=== PATIENT | male | born 1950 | race Caucasian/White ===

== ENCOUNTER 2018-01-07 12:24 | Observation (INO) | payer MEDICARE ==
[2018-01-07 13:23] LABS: ALT (SGPT) 23 U/L (8-55); AST (SGOT) 28 U/L (5-34); Albumin 3.5 g/dL (3.4-4.8); Alkaline Phosphatase 148 U/L (40-150); Anion Gap 14 mmol/L (10-20); BUN (Urea Nitrogen) 16 mg/dL (8.4-25.7); Bilirubin, Total 1.8 mg/dL (0.2-1.2); CK (CPK) 81 U/L (30-200); Calc. Creatinine Clearance 0 mL/min (70-130); Calcium 9.6 mg/dL (7.8-10.44); Carbon Dioxide 29 mmol/L (23-31); Chloride 97 mmol/L (98-107); Estimated GFR-MDRD 58; Globulin 3.8 g/dL (2.4-3.5); Glucose 146 mg/dL (80-115); Potassium 4.6 mmol/L (3.5-5.1); Protein, Total 7.3 g/dL (5.8-8.1); Sodium 135 mmol/L (136-145)
[2018-01-07 13:28] LABS: CKMB 2.7 ng/mL (0-6.6); Hemoglobin 15.3 g/dL (14.0-18.0); Mean Corpuscular HGB CONC 31.5 g/dL (32.0-36.0); Mean Corpuscular Hemoglobin 32.3 pg (27.0-31.0); Platelet Count 247 thou/uL (130-400); RBC Distribution Width 14.6 % (11.5-14.5); Red Blood Cell (RBC) Count 4.73 mill/uL (4.70-6.10); Troponin I 0.077 ng/mL (< 0.028); White Blood Cell (WBC) Count 12.5 thou/uL (4.8-10.8)
[2018-01-07 13:35] LABS: Band 9 % (5-11); Eosinophils 3 % (0-10); Lymphocytes 6 % (21-51); MDiff Complete? YES; Macrocytosis SLIGHT = 6-15 cells (100X) (0-5/hpf); Monocytes 7 % (0-10); Neutrophil 64 % (42-75); PLT Morphology Comment Appears Adequate; Polychromasia SLIGHT = 2-3 cells (100X) (0-2/hpf); Reactive Lymphocytes 10 % (0-10); Target Cells SLIGHT = 2-5 cells (100X) (0-1/hpf)
[2018-01-07] MEDS ORDERED: Ondansetron HCl/PF 4 MG/2 ML Vial ONE (13:36)
--- NOTE | 2018-01-07 15:25 | RAD ---
PORTABLE AP CHEST: Date: 01/07/18 HISTORY: Right upper quadrant pain. COMPARISON: 08/23/16. FINDINGS: Dual lead left subclavian AICD device remains in place. The cardiac silhouette is enlarged. Increased interstitial densities are seen at the right lung base. There is persistent pleural density at the r ight lung base as well, which may be related to either persistent right pleural effusion or pleural a nd parenchymal scarring. There is suboptimal evaluation of the left lung base. Vascular calcification seen in thoracic aorta. No other interval change. IMPRESSION: 1. Cardiomegaly without overt CHF. 2. Mild prominence of the interstitial densities right lung base probably related to chronic lung ch anges and superimposition of structures. 3. Persistent pleural based density right lung base, which may be related to either persistent right pleural effusion or pleural and parenchymal scarring. 4. Suboptimal evaluation of left lung base. POS: SVETLANA
--- NOTE | 2018-01-07 16:01 | CT ---
NONCONTRAST CT ABDOMEN AND PELVIS: 01/07/18 HISTORY: Shortness of breath, nausea and abdominal pain. COMPARISON: 08/25/09. There has been interval placement of dual lead left subclavian AICD device since the prior exam. The heart is enlarged. There is a tiny pericardial effusion identified. There are linear densities presen t at each lung base, probably related to bibasilar atelectasis. 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 No significant aneurysm sac is present. Postcholecystectomy changes as well as postsurgical change related to splenectomy are noted. There is a minimal contour abnormality involving the mid portion right kidney which may represent a t iny subcentimeter too small to characterize hypodense lesion. Postsurgical changes related to the lef t nephrectomy are noted. No right renal or ureteral calculus is present. Urinary bladder demonstrates grossly normal nonenhanced CT appearance. The liver, pancreas, and right adrenal gland demonstrate a normal CT appearance. Left adrenal gland i s not readily visualized which may be related to adrenalectomy. There is colonic diverticulosis involving the descending colon. Appendix is visualized and normal in caliber. Degenerative changes are seen in the lumbar spine. Postsurgical changes each inguinal region is present. There is atrophy of the left rectus abdominis muscle. There is mild inflammatory stranding seen in th e subcutaneous soft tissues in a supraumbilical location with minimal skin thickening. Mild celluliti s could not be excluded. IMPRESSION: 1. Cardiomegaly with tiny pericardial effusion. 2. Postsurgical changes related to cholecystectomy, splenectomy, and left adrenalectomy and neph rectomy. 3. Postsurgical change related to endograft repair of abdominal aortic aneurysm. No significant residual aneurysm sac is present. 4. No right renal or ureteral calculus is visualized, and there is no hydronephrosis. There is a tiny difficult to characterize exophytic lesion at the mid portion of the right kidney. 5. Prominent degenerative changes in the spine. 6. Mild stranding and minimal skin thickening anterior abdomen in a supraumbilical location. Janeth lulitis cannot be excluded based on CT evaluation. Clinical correlation is recommended. POS: SVETLANA
[2018-01-07] MEDS ORDERED: Bisacodyl 5 MG TAB PO PRN (16:09)
[2018-01-07] MEDS ORDERED: Acetaminophen 650 MG Suppository PR PRN (16:09)
[2018-01-07] MEDS ORDERED: Acetaminophen 325 MG TAB PO PRN (16:09)
[2018-01-07 17:41] LABS: Troponin I 0.081 ng/mL (< 0.028)
--- NOTE | 2018-01-07 17:58 | HP ---
PRIMARY CARE PHYSICIAN: Castillo David MD ARTILLERY MAINTENANCE SUPERVISOR: Kip Aguilar MD MARKETING STRATEGY ANALYST: Jose J Ulrich MD CHIEF COMPLAINT: Shortness of breath. HISTORY OF PRESENT ILLNESS: Mr. Arambula is a pleasant 67-year-old gentleman, who was seen at [facility] on 01/07/2018. He reports that he developed shortness of breath 3 days ago. It has been progressively getting worse . He uses 2 liters of oxygen at home. He reports that he is feeling short of breath on 2 liters of oxygen. He also reports cough that is productive of brownish sputum. He denies any fevers or chills . He denies any chest pain. He reports nausea over the last 4 to 5 days. He also reports having di scomfort across his upper abdomen over the last 2 weeks. He describes it as a dull pain, nonradiatin g, 7/10, improving with bowel movements, accompanied by nausea. He reports that he has been eating s oft diet for the last one month. REVIEW OF SYSTEMS: The following complete review of systems was negative, unless otherwise mentioned in the HPI or below: Constitutional: Weight loss or gain, ability to conduct usual activities. Skin: Rash, itching. Eyes: Double vision, pain. ENT/Mouth: Nose bleeding, neck stiffness, pain, tenderness. Cardiovascular: Palpitations, dyspnea on exertion, orthopnea. Respiratory: Shortness of breath, wheezing, cough, hemoptysis, fever or night sweats. Gastrointestinal: Poor appetite, abdominal pain, heartburn, nausea, vomiting, constipation, or diarr hea. Genitourinary: Urgency, frequency, dysuria, nocturia. Musculoskeletal: Pain, swelling. Neurologic/Psychiatric: Anxiety, depression. Allergy/Immunologic: Skin rash, bleeding tendency. PAST MEDICAL HISTORY: Significant for COPD, CHF, atrial fibrillation and dyslipidemia. PAST SURGICAL HISTORY: Significant for spinal fusion, crush injury to right index finger, wisdom too th extraction, right wrist cyst removal, chest tube, cervical fusion at C4-C6, right-sided nephrectom y, bilateral knee replacements, and AICD placement. FAMILY HISTORY: No family history of premature coronary artery disease. SOCIAL HISTORY: The patient denies tobacco use, alcohol use and recreational drug use. ALLERGIES: DEMEROL, IODINE and MEPERIDINE. The patient's reports that patient is not supposed to have IODINE because he has solitary kidney. CURRENT MEDICATIONS: Losartan 50 mg daily, pravastatin 40 mg daily, digoxin 125 mcg daily, Toprol-XL 25 mg 2 times a day, and torsemide 20 mg daily. PHYSICAL EXAMINATION: GENERAL: Mr. Arambula is awake and alert, not in acute distress. VITAL SIGNS: Blood pressure is 102/66, pulse is 94. He is breathing at rate of 18 and saturating 96 % on 3 liters of oxygen. He is afebrile. When he presented to the emergency room, he had a pulse of 118 and respiratory rate of 32. EYES: No scleral icterus. No conjunctival pallor. ENT: Moist mucosal membranes, no oropharyngeal erythema or exudates. NECK: Supple, nontender, normal range of movement. Trachea is midline. RESPIRATORY: Accessory muscles of breathing are not active. Chest wall movements are symmetric bila terally. LUNGS: Clear to auscultation, without wheeze, rhonchi or crepitations. CARDIOVASCULAR: S1 and S2 are heard, tachycardic and irregular. LUNGS: Peripheral pulses palpable. No carotid bruit, no pericardial rub. ABDOMEN: Soft, mild epigastric tenderness, no guarding or rigidity, bowel sounds are heard, no hepat omegaly, no splenomegaly. NEUROLOGIC: Cranial nerves II through XII are intact, deep tendon reflexes are 2+. MUSCULOSKELETAL: Power is 5/5 in all 4 extremities. He has bilateral lower extremity edema. LYMPHATIC: No cervical lymphadenopathy. PSYCHIATRIC: Normal mood, normal affect, the patient is oriented to person, place, and time. LABORATORY DATA: Mr. Arambula's labs and investigations were reviewed. I reviewed his electrocardiogr am, which shows atrial fibrillation with rapid ventricular response. I also reviewed his chest x-ray , which shows cardiomegaly, no pulmonary infiltrates. He appears to have a right pleural effusion. He also had CT scan of the abdomen and pelvis, which showed cardiomegaly with tiny pericardial effusi on, postsurgical changes related to cholecystectomy, splenectomy, left adrenalectomy and nephrectomy, post-surgical changes related to endograft repair of abdominal aortic aneurysm, no right renal or ur eteral calculus, no hydronephrosis, tiny difficult to characterize exophytic lesion at the mid portio n of the right kidney, prominent degenerative changes in the spine, mild stranding and minimal skin t hickening of the anterior abdomen in the supraumbilical location, radiologist reports that cellulitis cannot be excluded based on CT evaluation. Laboratory investigations showed leukocytosis with 12,50 0 white cells, of which 64% are neutrophils, normal hemoglobin, normal platelet count, decreased sodi um of 135, normal potassium, normal creatinine, normal lactic acid, elevated total bilirubin of 1.8, normal AST, normal ALT, normal alkaline phosphatase and indeterminate troponin I of 0.077. ASSESSMENT AND PLAN: Mr. Arambula is a pleasant 67-year-old gentleman, who was seen at [facility] on 01/07/2018. His problem list includes: 1. Acute on chronic respiratory failure: Most likely secondary to bronchitis. We will admit Mr. Russell purcell to the hospital for further management. 2. Bronchitis: Start the patient on antibiotics, bronchodilators and steroids. 3. Elevated troponin: The patient's troponin is in the indeterminate range. We will recheck tropon in level. We will consult Cardiology Service for their opinion and help with management. The patien t himself does not complain of any chest pain. 4. Hyponatremia: Mild, recheck. 5. Abdominal pain: The etiology is unclear at this time. CT scan does not provide a clear reason. 6. Renal exophytic lesion. The patient may need workup as outpatient. 7. Atrial fibrillation. Continue current medications. 8. History of congestive heart failure: Given the patient's presentation with shortness of breath, check BNP level. Continue home medications including torsemide. 9. Check D-dimer to rule out pulmonary embolism. The patient may need a VQ scan if D-dimer is eleva armin. Many thanks for allowing me to participate in your patient's care. Please feel free to contact me wi th any questions or concerns. LEVEL OF RISK: High. LEVEL OF COMPLEXITY: High.
[2018-01-07 18:34] VITALS: BMI 35.9
--- NOTE | 2018-01-07 19:39 | CON ---
DATE OF CONSULTATION: 01/07/2018 REASON FOR CONSULTATION: Heart failure. HISTORY OF PRESENT ILLNESS: Mr. Arambula is a very pleasant 67-year-old white gentleman who comes to [facility] for shortness of breath. He was seen in the office just last week about 3 or 4 days ago to establish care. He has a history of combined ischemic and nonischemic cardiomyopathy. His EF was about 15% when he was first diagnosed heart catheterization showed an occluded RCA and an occluded l arge OM. It was recommended that the only way to get blood flow back to these arteries was bypass hector meek, he did not like this, so he actually sought different opinion and has been seen at [facility] since there was no revascularization done. He has been treated medically since then. Last evaluat ion of LV function was about a year ago and he was told it was about 40-45%. He comes in for [facility] shortness of breath, cough with red sputum. No fevers, but just a sensation of feeling sick, a li ttle diarrhea, loose stool, mostly. He was admitted for further evaluation and found to have an elevated BNP and indeterminate troponins. PAST MEDICAL HISTORY: 1. Chronic obstructive pulmonary disease which he has been told this is mild. 2. History of ischemic and nonischemic cardiomyopathy. 3. Chronic atrial fibrillation. He recently had his anticoagulation, stopped secondary to positive occult blood in stool. 4. Hyperlipidemia. 5. Coronary artery disease. PAST SURGICAL HISTORY: 1. Spinal fusion. 2. Crush injury of right index finger. 3. Collins tooth extraction. 4. Right wrist cyst removal. 5. Cervical fusion of C4 and C6. 6. Right-sided nephrectomy. 7. Bilateral knee replacement. 8. AICD placement due to cardiomyopathy. OUTPATIENT MEDICATIONS: Include, 1. Losartan 50 mg a day. 2. Pravastatin 40 mg a day. 3. Digoxin 125 mcg a day. 4. Toprol-XL 25 mg twice a day. 5. Torsemide 20 mg a day. ALLERGIES: IODINE, MEPERIDINE, although IODINE allergies more of just avoidance due to having just o ne kidney. SOCIAL HISTORY: No alcohol, tobacco or drugs. FAMILY HISTORY: Noncontributory. REVIEW OF SYSTEMS: Twelve point review of systems was done and is all negative unless stated in the history of present illness. PHYSICAL EXAMINATION: VITAL SIGNS: Temperature 98.0, pulse 96, respiration rate 20, satting 96% on room, blood pressure 13 8/83. GENERAL: Awake, alert, oriented x3, in no distress. HEENT: Normocephalic, atraumatic. NECK: Supple. LUNGS: Have mild crackles at the bilateral bases which are occurred mostly dry. CARDIOVASCULAR: S1, S2, no S3, S4, no murmurs or rubs. ABDOMEN: Soft, positive bowel sounds. EXTREMITIES: 1+ edema. SKIN: Warm and dry. LABORATORY WORK: Reviewed. White count of 12, hemoglobin of 15, hematocrit 48, platelet count 247. Coags: Elevated D-dimer 2.7. Chemistries: Sodium 135, potassium 4.6, chloride 97, carbon dioxide 29, anion gap of 14, BUN of 16, creatinine 1.23, GFR 58, glucose of 146. Lactic acid 1.7, calcium 9. 6, total bilirubin 1.8, AST and ALT, alkaline phosphatase are normal. BNP was 1650, troponin I was 0 .07 and 0.08, albumin of 3.5. CT of the abdomen and pelvis was reviewed. ASSESSMENT AND PLAN: 1. Acute on chronic systolic heart failure. We will get an echocardiogram to assess LV function. O ne dose of IV Lasix. We will reevaluate in the morning. 2. Possible bronchitis. Antibiotics per primary team. 3. Coronary artery disease stable at this time. I do not think this is an acute coronary syndrome. Troponin elevation is only mild and not a typical rise and fall that we would expect for an acute co ronary syndrome. 4. Chronic atrial fibrillation. Heart rate, currently rate controlled. We would continue home [facility]. Thank you for letting us participate in the care of patient. We will follow.
[2018-01-07] MEDS ORDERED: Furosemide 40 MG/4 ML VIAL SLOW IVP SCH (20:30)
[2018-01-07] MEDS: Metoprolol Tartrate 25 MG TAB PO SCH (20:32)
[2018-01-07] MEDS: Cefuroxime Axetil 250 MG TAB PO SCH (20:32)
[2018-01-07] MEDS: Pravastatin Sodium 40 MG TAB PO SCH (20:32)
[2018-01-07 20:53] LABS: Troponin I 0.064 ng/mL (< 0.028)
[2018-01-07] MEDS ORDERED: HYDROcodone/Acetaminophen 10/325 mg Tablet PO SCH (21:00)
[2018-01-08] MEDS: HYDROcodone/Acetaminophen 10/325 mg Tablet PO PRN ×2 (04:48→13:28)
[2018-01-08 06:10] LABS: #Basophils 0.1 thou/uL (0.0-0.2); #Eosinphils 0.2 thou/uL (0.0-0.7); #Monocytes 1.3 thou/uL (0.11-0.59); #Neutrophils 8.1 thou/uL (1.40-6.50); %Basophils 0.8 % (0.0-1.0); %Eosinophils 1.7 % (0.0-10.0); %Lymphocytes 17.3 % (21.0-51.0); %Neutrophils 69.2 % (42.0-75.0); Hemoglobin 13.8 g/dL (14.0-18.0); Mean Corpuscular HGB CONC 31.8 g/dL (32.0-36.0); Mean Corpuscular Hemoglobin 32.8 pg (27.0-31.0); Mean Platelet Volume 7.6 fL (7.4-10.4); Platelet Count 243 thou/uL (130-400); RBC Distribution Width 14.7 % (11.5-14.5); White Blood Cell (WBC) Count 11.7 thou/uL (4.8-10.8)
[2018-01-08 06:33] LABS: Anion Gap 11 mmol/L (10-20); BUN (Urea Nitrogen) 17 mg/dL (8.4-25.7); Calc. Creatinine Clearance 81 mL/min (70-130); Calcium 8.7 mg/dL (7.8-10.44); Carbon Dioxide 33 mmol/L (23-31); Chloride 98 mmol/L (98-107); Estimated GFR-MDRD 56; Glucose 110 mg/dL (80-115); Magnesium 2.1 mg/dL (1.6-2.6); Potassium 4.1 mmol/L (3.5-5.1); Sodium 138 mmol/L (136-145)
[2018-01-08] MEDS: Metoprolol Tartrate 25 MG TAB PO SCH ×2 (08:11→21:09)
[2018-01-08] MEDS: Cefuroxime Axetil 250 MG TAB PO SCH ×2 (08:11→21:08)
[2018-01-08] MEDS: Digoxin 0.125 MG TAB PO SCH (08:11)
[2018-01-08] MEDS: Cyanocobalamin (Vitamin B-12) 1,000 MCG TAB PO SCH (08:11)
[2018-01-08] MEDS: Ubidecarenone 50 MG CAP PO SCH (08:12)
[2018-01-08] MEDS: Multivitamin W/ Minerals 1 TAB PO SCH (08:12)
[2018-01-08] MEDS: Losartan 25 MG TAB PO SCH (08:12)
[2018-01-08] MEDS: Fish Oil 1,000 MG CAP PO SCH (08:12)
[2018-01-08] MEDS: Folic Acid 1 MG TAB PO SCH (08:12)
[2018-01-08] MEDS: Torsemide 20 MG TAB PO SCH (08:12)
[2018-01-08] MEDS: Enoxaparin Sodium 40 MG/0.4 ML SYRINGE SC SCH (08:13)
[2018-01-08] MEDS: predniSONE 20 MG TAB PO SCH (08:14)
--- NOTE | 2018-01-08 09:56 | NM ---
NUCLEAR MEDICINE VENTILATION PERFUSION SCAN: (V/Q SCAN) Date: 01/08/18 HISTORY: 67-year-old male with elevated D-Dimer and dyspnea. TECHNIQUE: Xenon-133 gas dose: 11.4 [id number] dose: 6.5 The patient inhaled Xenon-133 gas, and dynamic ventilation scintigraphy was performed. [id number] was injected IV, and multiple perfusion scintigraphic views were obtained. FINDINGS: Unfortunately, due to technical issues, the Xenon ventilation scintigraphy data was lost. Fortunately, there are no moderate sized or large pulmonary perfusion defects, except for the defect on the left representing pacemaker generator. IMPRESSION: Low probability for pulmonary thromboembolism. NONI Gordon POS: SVETLANA
--- NOTE | 2018-01-08 13:07 | PDOC.CTH ---
Cardiology Progress Note - Subjective He diuresed well overnight. I reviewed the echo with him as well the films from his cath in 2010. - Objective Vital Signs Temp Pulse Resp BP Pulse Ox 01/08/18 11:39 97.9 F 80 24 H 101/73 93 L 01/08/18 07:53 98.0 F 91 20 01/08/18 07:35 97.7 F 91 20 104/58 L 92 L 01/08/18 04:02 98.0 F 91 20 110/75 91 L Weight 229 lb 11.2 oz 01/07/18 01/08/18 01/09/18 06:59 06:59 06:59 Intake Total 484 Output Total 1700 Balance -1216 - Physical Examination General/Neuro: alert & oriented x3, NAD Neck: no JVD present Lungs: unlabored respirations, other: (Mild bibasilar crackles. ) Heart: other: (Irreg) Abdomen: NT/ND Extremities: + edema B (1+) - Telemetry Telemetry Rhythm: Afib HR 60's. - Labs Result Diagrams: 01/08/18 05:56 01/08/18 05:56 Troponin/CKMB CK-MB (CK-2) 2.7 ng/mL (0-6.6) 01/07/18 12:45 Troponin I 0.064 ng/mL (< 0.028) H 01/07/18 20:17 - Assessment/Plan 1. Acute on chronic sytolic heart failure. 2. Severe dilated CM EF at 10-15%. 3. Presence of an AICD. 4. Chronic afib. 5. CAD, stable. occluded RCA and OM branch on [facility] in 2010. PLAN: - Continue IV lasix for today and depending on how he looks tomorrow will switch to PO diuretic. - Home soon.
[2018-01-08] MEDS: Furosemide 40 MG/4 ML VIAL SLOW IVP SCH (13:28)
--- NOTE | 2018-01-08 18:02 | PRG ---
DATE OF SERVICE: 01/08/2018 SUBJECTIVE: The patient is seen and examined at the bedside. He is feeling 100% better as he stated he does not have much complaints to offer, except for he is still being some short of breath and eve e abdominal bloating. OBJECTIVE: VITAL SIGNS: Blood pressure is 101/73, pulse is 100, temperature is 97.9, respiratory rate is 16, an d O2 saturation is 96% on 3 liters by nasal cannula. HEENT: His head is atraumatic, normocephalic. Eyes are PERRLA. Conjunctivae pinkish. Oral mucosa is moist. NECK: Supple, no thyromegaly. LUNGS: Breath sounds significantly diminished over the right lung, few crackles at the both bases. No wheezing. CARDIOVASCULAR: S1, S2, somewhat distant. No S3, no S4. ABDOMEN: Distended, bloated, but not tender. EXTREMITIES: Right lower extremity, 2-3+ peripheral edema. Left lower extremity, mild edema up to 1 . NEUROLOGIC: He is alert and oriented x4. There is no any sensory or motor deficits present. Crania l nerves are intact. LABORATORY DATA: Showed white count of 11.7, hemoglobin of 13.8, hematocrit of 43.4, platelet count is 243. Chemistry showed normal electrolytes, CO2 of 33, BUN 17, creatinine 1.27. The rest of chemi stry within normal limits. Three sets of troponins showed 0.077, 0.081, and 0.064 levels. VQ scan w as done this morning and it is low probability for pulmonary thromboembolism. IMPRESSION: 1. Acute on chronic systolic heart failure. 2. Severe dilated cardiomyopathy with ejection fraction of 10% to 15%. 3. Chronic atrial fibrillation. 4. Coronary artery disease, stable, chronic. 5. Automatic implantable cardioverter defibrillator. 6. Elevated troponins, most likely demand ischemia. 7. Abdominal distention and bloating. Apparently, he is able to eat today. We will try some probio tics and see whether this helps. 8. Atrial fibrillation, chronic, with rapid ventricular rate controlled. 9. Possible bronchitis. PLAN: Continue diuresis. Continue antibiotics. Continue p.o. prednisone and he should be able to g o home since he improved so much so quickly.
[2018-01-08] MEDS: Pravastatin Sodium 40 MG TAB PO SCH (21:09)
[2018-01-09] MEDS: HYDROcodone/Acetaminophen 10/325 mg Tablet PO PRN ×2 (00:47→10:52)
[2018-01-09] MEDS: Furosemide 40 MG/4 ML VIAL SLOW IVP SCH ×2 (04:53→15:13)
[2018-01-09 05:18] LABS: Anion Gap 11 mmol/L (10-20); BUN (Urea Nitrogen) 19 mg/dL (8.4-25.7); Calc. Creatinine Clearance 98 mL/min (70-130); Calcium 8.4 mg/dL (7.8-10.44); Carbon Dioxide 33 mmol/L (23-31); Chloride 97 mmol/L (98-107); Estimated GFR-MDRD 70; Glucose 132 mg/dL (80-115); Potassium 4.2 mmol/L (3.5-5.1); Sodium 137 mmol/L (136-145)
[2018-01-09 08:25] VITALS: TEMP 97.5
[2018-01-09] MEDS: Digoxin 0.125 MG TAB PO SCH (08:29)
[2018-01-09] MEDS: Folic Acid 1 MG TAB PO SCH (08:29)
[2018-01-09] MEDS: predniSONE 20 MG TAB PO SCH (08:29)
[2018-01-09] MEDS: Torsemide 20 MG TAB PO SCH (08:30)
[2018-01-09] MEDS: Multivitamin W/ Minerals 1 TAB PO SCH (08:30)
[2018-01-09] MEDS: Cyanocobalamin (Vitamin B-12) 1,000 MCG TAB PO SCH (08:30)
[2018-01-09] MEDS: Losartan 25 MG TAB PO SCH (08:31)
[2018-01-09] MEDS: Cefuroxime Axetil 250 MG TAB PO SCH (08:31)
[2018-01-09] MEDS: Ubidecarenone 50 MG CAP PO SCH (08:31)
[2018-01-09] MEDS: Enoxaparin Sodium 40 MG/0.4 ML SYRINGE SC SCH (08:31)
[2018-01-09] MEDS: Metoprolol Tartrate 25 MG TAB PO SCH (08:31)
[2018-01-09] MEDS: Fish Oil 1,000 MG CAP PO SCH (08:31)
[2018-01-09] MEDS ORDERED: Ondansetron HCl/PF 4 MG/2 ML Vial IVP PRN (12:29)
[2018-01-09] MEDS ORDERED: Ondansetron ODT 4 MG TAB SL PRN (12:29)
--- NOTE | 2018-01-09 14:58 | PDOC.PN ---
- Subjective Encounter Start Date: 01/09/18 Encounter Start Time: 14:56 Subjective: feels well.denies any more SOB.thinks he is at his baseline - Objective MAR Reviewed: Yes Vital Signs & Weight: Vital Signs (12 hours) Temp Pulse Resp BP Pulse Ox 01/09/18 13:23 84 20 96 01/09/18 11:35 97.5 F L 93 24 H 128/68 91 L 01/09/18 08:29 96 01/09/18 07:41 97.5 F L 96 18 135/82 91 L 01/09/18 07:06 89 20 96 01/09/18 04:00 98.1 F 93 17 128/68 92 L Weight Weight 230 lb 9.6 oz I&O: 01/08/18 01/09/18 01/10/18 06:59 06:59 06:59 Intake Total 484 1565 Output Total 1700 1375 Balance -1216 190 Result Diagrams: 01/08/18 05:56 01/09/18 04:44 Additional Labs: Microbiology 01/07/18 13:57 Venous blood - Left Arm Blood Culture - Preliminary Specimen has been received and culture in progress. No Growth to date. 01/07/18 13:57 Venous blood - Left Arm Blood Culture - Preliminary NO GROWTH AT 48 HOURS 01/07/18 13:17 Venous blood - Right Hand Blood Culture - Preliminary Specimen has been received and culture in progress. No Growth to date. 01/07/18 13:17 Venous blood - Right Hand Blood Culture - Preliminary NO GROWTH AT 48 HOURS Laboratory Tests 01/07/18 01/07/18 01/07/18 12:12 12:45 17:08 Troponin I 0.077 H 0.081 H B-Natriuretic Peptide 1650.2 H 01/07/18 20:17 Troponin I 0.064 H B-Natriuretic Peptide Phys Exam - Physical Examination Constitutional: NAD HEENT: PERRLA, moist MMs, sclera anicteric, oral pharynx no lesions Neck: no nodes, no JVD, supple, full ROM Respiratory: no wheezing, no rales, no rhonchi, clear to auscultation bilateral Cardiovascular: no significant murmur, no rub, gallop, irregular Gastrointestinal: soft, non-tender, no distention, positive bowel sounds Musculoskeletal: no edema, pulses present Neurological: non-focal, normal sensation, moves all 4 limbs Psychiatric: normal affect, A&O x 3 Skin: no rash Dx/Plan (1) Acute on chronic systolic CHF (congestive heart failure) Code(s): I50.23 - ACUTE ON CHRONIC SYSTOLIC (CONGESTIVE) HEART FAILURE Status : Acute (2) Acute and chronic respiratory failure ([id number]) Code(s): J96.20 - ACUTE AND CHR RESP FAILURE, UNSP W HYPOXIA OR HYPERCAPNIA Status: Acute (3) ACUTE COPD W BRONCHITIS Status: Acute (4) Chronic atrial fibrillation Code(s): I48.2 - CHRONIC ATRIAL FIBRILLATION Status: Chronic (5) CAD (coronary artery disease) Code(s): I25.10 - ATHSCL HEART DISEASE OF [place] CORONARY ARTERY W/O ANG PCTRS Status: Chronic (6) AICD (automatic cardioverter/defibrillator) present Code(s): Z95.810 - PRESENCE OF AUTOMATIC (IMPLANTABLE) CARDIAC DEFIBRILLATOR Status: Chronic (7) Ischemic dilated cardiomyopathy Code(s): I25.5 - ISCHEMIC CARDIOMYOPATHY; I42.0 - DILATED CARDIOMYOPATHY Status: Chronic Comment: EF 10-15% - Plan continue antibiotics, PT/OT, social media content specialist, respiratory therapy, incentive spirometry, out of bed/ambulate, DVT proph w/SCDs cont diuresis per cardiology.cont empiric ABx,Po steroids,nebs.On home O2 -: V/Q w low probability for PE. -: cont Cozaar,Metoprolol,statin,lasix -: am labs.home when cleared by cardiology.almost at baseline -: EF reduced from 45-15%.will need aldactone,CoregVs Toprol .start aldactone * .will d/w cardiology further. * may need to stay if meds are changed .pt somewhat reluctant and non trusting Review of Systems - Review of Systems Constitutional: negative: fever, chills, sweats, weakness, malaise, other Respiratory: SOB with Excertion. negative: Cough, Dry, Shortness of Breath, Hemoptysis, Pleuritic Pain, Sputum, Wheezing Cardiovascular: negative: chest pain, palpitations, orthopnea, paroxysmal nocturnal dyspnea, edema, light headedness, other Gastrointestinal: negative: Nausea, Vomiting, Abdominal Pain, Diarrhea, Constipation, Melena, Hematochezia, Other Genitourinary: negative: Dysuria, Frequency, Incontinence, Hematuria, Retention , Other Musculoskeletal: negative: Neck Pain, Shoulder Pain, Arm Pain, Back Pain, Hand Pain, Leg Pain, Foot Pain, Other Neurological: negative: Weakness, Numbness, Incoordination, Change in Speech, Confusion, Seizures, Other - Medications/Allergies Allergies/Adverse Reactions: Allergies Allergy/AdvReac Type Severity Reaction Status Date / Time iodine Allergy Verified 01/07/18 16:04 meperidine Allergy Verified 01/07/18 16:04 Medications: Current Medications Acetaminophen (Tylenol) 650 mg PO Q4H PRN PRN Reason: Headache/Fever or Pain Acetaminophen (Tylenol) 650 mg VT Q4H PRN PRN Reason: Headache/Fever or Pain Hydrocodone Bitart/Acetaminophen ([place] 10/325) 1 tab PO Q8H PRN PRN Reason: Pain Last Admin: 01/09/18 10:52 Dose: 1 tab Albuterol/Ipratropium (Duoneb) 3 ml NEB [id number] PRN PRN Reason: SOB &/or Wheezing Albuterol/Ipratropium (Duoneb) 3 ml NEB [id number] [facility] Last Admin: 01/09/18 13:23 Dose: 3 ml Aspirin (Aspirin Chewable) 81 mg PO DAILY [facility] Last Admin: 01/09/18 08:29 Dose: 81 mg Bisacodyl (Dulcolax) 10 mg PO DAILYPRN PRN PRN Reason: Constipation Last Admin: 01/09/18 12:59 Dose: 10 mg Cefuroxime Axetil (Ceftin) 250 mg PO BID [facility] Last Admin: 01/09/18 08:31 Dose: 250 mg Coenzyme Q10 (Coenzyme Q10) 50 mg PO DAILY [facility] Last Admin: 01/09/18 08:31 Dose: 50 mg Cyanocobalamin (Vitamin B-12) 1,000 mcg PO DAILY [facility] Last Admin: 01/09/18 08:30 Dose: 1,000 mcg Digoxin (Lanoxin) 0.125 mg PO DAILY [facility] Last Admin: 01/09/18 08:29 Dose: 0.125 mg Enoxaparin Sodium (Lovenox) 40 mg SC 0900 [facility] Last Admin: 01/09/18 08:31 Dose: Not Given Fish Oil (Fish Oil) 2,000 mg PO DAILY [facility] Last Admin: 01/09/18 08:31 Dose: 2,000 mg Folic Acid (Folvite) 1 mg PO DAILY [facility] Last Admin: 01/09/18 08:29 Dose: 1 mg Furosemide (Lasix) 40 mg SLOW IVP 0600,1400 [facility] Last Admin: 01/09/18 04:53 Dose: 40 mg Iron/Minerals/Multivitamins (Theragran M) 1 tab PO DAILY [facility] Last Admin: 01/09/18 08:30 Dose: 1 tab Losartan Potassium (Cozaar) 25 mg PO DAILY [facility] Last Admin: 01/09/18 08:31 Dose: 25 mg Metoprolol Tartrate (Lopressor) 25 mg PO BID [facility] Last Admin: 01/09/18 08:31 Dose: 25 mg Ondansetron HCl (Zofran) 4 mg IVP Q6H PRN PRN Reason: Nausea/Vomiting Ondansetron HCl (Zofran Odt) 4 mg SL Q6H PRN PRN Reason: Nausea/Vomiting Last Admin: 01/09/18 12:51 Dose: 4 mg Pravastatin Sodium (Pravachol) 40 mg PO HS [facility] Last Admin: 01/08/18 21:09 Dose: 40 mg Prednisone (Prednisone) 40 mg PO DAILY [facility] Last Admin: 01/09/18 08:29 Dose: 40 mg Torsemide (Demadex) 20 mg PO DAILY [facility] Last Admin: 01/09/18 08:30 Dose: Not Given
[2018-01-09] MEDS ORDERED: Spironolactone 25 MG TAB PO SCH (15:30)
[2018-01-09 15:35] VITALS: BP 125/91
--- NOTE | 2018-01-09 16:54 | DIS ---
DATE OF ADMISSION: 01/07/2018 DATE OF DISCHARGE: 01/09/2018 CONDITION AT THE TIME OF DISCHARGE: Stable and improved. PRIMARY CARE PHYSICIAN: Castillo David MD CONSULTATIONS INHOUSE: Include Cardiology. PROCEDURES DONE INHOUSE: Include, 1. CT scan of the abdomen and pelvis which shows cardiomegaly with tiny pericardial effusion, otherw ise no acute changes. He has chronic changes which are post-surgical due to cholecystectomy, splenec logan, left adrenalectomy, nephrectomy, and abdominal aneurysm repair. 2. Transthoracic echocardiogram which showed EF reduced to 10-15% with atrial fibrillation and sever e global hypokinesis, dilated left atrium and moderate to severe tricuspid regurgitation and moderate mitral regurgitation. 3. Pulmonary perfusion VQ scan which is low probability for pulmonary embolism. DISCHARGE DIAGNOSES: 1. Acute on chronic respiratory failure with hypoxia and hypercapnia. 2. Acute chronic obstructive pulmonary disease with bronchitis. 3. Chronic atrial fibrillation. 4. Coronary artery disease. 5. Automatic implantable cardioverter defibrillators in place. 6. Ischemic dilated cardiomyopathy. DISCHARGE MEDICATIONS: 1. Movantik 25 mg daily. 2. Multivitamins of various types. 3. Aspirin 81 mg daily. 4. Pravastatin 40 mg daily. 5. Cozaar 25 mg daily. 6. Torsemide 20 mg daily. 7. Digoxin 125 mcg daily. New medications: 1. Medrol Dosepak. 2. Toprol-XL 25 mg daily. This has been changed from metoprolol tartrate that he was on. 3. Ceftin 250 mg p.o. b.i.d. for 5 more days. 4. Zofran as needed. Please note that the patient was not started on Aldactone because of low blood pressure. He will fol low up with Cardiology as an outpatient for the same. HISTORY OF PRESENTING ILLNESS: Mr. Arambula is a 67-year-old male with history of ischemic cardiomyopa thy and coronary artery disease, COPD, and afebrile presented to the emergency room with complaints o f worsening shortness of breath as well as nausea. He has chronic COPD and chronic respiratory failu re, uses 2 liters of oxygen at home. Upon presentation, he was 96% on 3 liters oxygen and was afebri le. His blood pressure was low at 102/66. He underwent a CT scan of the abdomen and pelvis which di d not show any significant acute changes. He was diagnosed with acute on chronic respiratory failure most likely secondary to bronchitis as well as some fluid overload and was admitted for further eval uation. He also had elevated D-dimer for which a VQ scan was ordered. Please see admission history and physical for further details. HOSPITAL COURSE: The patient underwent an echocardiogram which showed significant reduction in his E F from 40-45% to 10-15% now. His medications were adjusted and Cardiology was consulted. Dr. Ulrich saw the patient and recommended increased diuresis which was obtained by Lasix. As the patient also takes Demadex, Lasix was later discontinued after the patient reached euvolemia. His VQ scan was unremarkable for pulmonary embolism and low probability. His metoprolol tartrate was changed to metoprolol succinate given his low EF at this time. He will also need to be started on A ldactone if his blood pressure stabilizes. At this time, he will continue aspirin, statin as well as his Cozaar. He will follow with Cardiology as an outpatient. He was seen and examined prior to discharge and is back to his baseline. Please see hospitalist sandra koo note from today's date for further detail including [id number] interaction.
--- NOTE | 2018-01-09 21:22 | PDOC.CTH ---
Cardiology Progress Note - Subjective He has diuresed well and feels back to baseline. - Objective Vital Signs Temp Pulse Pulse Pulse Resp BP BP 01/09/18 15:51 89 01/09/18 14:44 88 103 H 125/91 H 130/81 01/09/18 13:23 84 20 01/09/18 11:35 97.5 F L 93 24 H BP Pulse Ox Pulse Ox Pulse Ox 01/09/18 15:51 93 L 01/09/18 14:44 90 L 93 L 01/09/18 13:23 96 01/09/18 11:35 128/68 91 L Weight 230 lb 9.6 oz 01/08/18 01/09/18 01/10/18 06:59 06:59 06:59 Intake Total 484 1565 Output Total 1700 1375 Balance -1216 190 - Physical Examination General/Neuro: alert & oriented x3, NAD Neck: no JVD present Lungs: unlabored respirations Heart: other: (irreg) Abdomen: NT/ND Extremities: other: (no edema.) - Telemetry Telemetry Rhythm: Afib HR 80's. - Labs Result Diagrams: 01/08/18 05:56 01/09/18 04:44 Troponin/CKMB CK-MB (CK-2) 2.7 ng/mL (0-6.6) 01/07/18 12:45 Troponin I 0.064 ng/mL (< 0.028) H 01/07/18 20:17 - Assessment/Plan 1. Acute on chronic sytolic heart failure. 2. Severe dilated CM EF at 10-15%. 3. Presence of an AICD. 4. Chronic afib. 5. CAD, stable. occluded RCA and OM branch on [facility] in 2010. PLAN: - May d/c home today. - Switch BB to toprol XL. - Cannot add aldactone due to borderline low BP. - AICD in place. - Place back on home dose of torsemide but scheduled every morning and not as needed. - Follow up in 2 weeks.
[2018-01-10] MEDS ORDERED: Spironolactone 25 MG TAB PO SCH (08:00)
== END 2018-01-09 17:18 | disposition home or self-care (01) ==
LOC: ERS 12:24 → 2SW 16:56
PROVIDERS: ADMIT Internal Medicine; ATTEND Internal Medicine
DX: J96.21 Acute and chronic respiratory failure with hypoxia (principal); J96.22 Acute and chronic respiratory failure with hypercapnia; J44.1 Chronic obstructive pulmonary disease with (acute) exacerbation; J40 Bronchitis, not specified as acute or chronic; I48.2 Chronic atrial fibrillation; I25.10 Atherosclerotic heart disease of native coronary artery without angina pectoris; I25.5 Ischemic cardiomyopathy; I50.9 Heart failure, unspecified; E78.5 Hyperlipidemia, unspecified; E87.1 Hypo-osmolality and hyponatremia; R79.89 Other specified abnormal findings of blood chemistry; N28.89 Other specified disorders of kidney and ureter; Z91.041 Radiographic dye allergy status; Z88.8 Allergy status to other drugs, medicaments and biological substances; Z79.899 Other long term (current) drug therapy; Z98.1 Arthrodesis status; Z90.5 Acquired absence of kidney; Z90.49 Acquired absence of other specified parts of digestive tract; Z90.81 Acquired absence of spleen; Z95.810 Presence of automatic (implantable) cardiac defibrillator; Z96.653 Presence of artificial knee joint, bilateral; Z98.890 Other specified postprocedural states
CPT/HCPCS: 71045; 74176; 78582; 80048 ×2; 80053; 82550; 82553; 83605; 83735; 83880; 84484 ×2; 85025 ×2; 85379; 87040; 93005; 93306; 93798; 94640 ×3; 94760; 96361; 96374; 96375; 96376 ×2; 97139 ×2; 99285; A9540; A9558; G0378; 36415; J1650; J1940; J2405; J7506; J7620; Q0162

== ENCOUNTER 2018-03-20 11:38 | Day surgery (SDC) | payer MEDICARE ==
[2018-03-17 13:18] VITALS: BMI 30.5
[2018-03-20] MEDS ORDERED: Morphine 4 MG/ML VIAL ONE (12:46)
[2018-03-20] MEDS ORDERED: Esmolol 100 MG/10 ML VIAL ONE (13:21)
[2018-03-20] MEDS ORDERED: PHENYLEPHRINE-NS 100 MCG/ML 10 ML SYRINGE ONE (13:21)
[2018-03-20] MEDS ORDERED: Ondansetron ODT 4 MG TAB ONE (13:27)
[2018-03-20] MEDS ORDERED: Midazolam HCl 2 mg/2 ml Vial ONE (13:28)
[2018-03-20] MEDS ORDERED: Fentanyl 100 MCG/2 ML VIAL ONE (13:28)
--- NOTE | 2018-03-20 15:41 | OP ---
DATE OF PROCEDURE: 03/20/2018 PROCEDURES: Esophagogastroduodenoscopy with biopsy, colonoscopy with biopsy and polypectomy. INDICATION FOR PROCEDURE: Midepigastric abdominal pain, screening for malignant neoplasm of the colo n. DESCRIPTION OF PROCEDURE: After the risks and benefits of the procedure were explained to the patien t including risks of bleeding, infection, perforation, reactions to anesthesia and/or pain, informed consent was obtained. The patient was then taken to the endoscopy suite where moderate conscious sed ation was administered via fentanyl, Versed and ketamine per Anesthesia support. After adequate jo-ann tion was achieved, the standard gastroscope was then introduced into the mouth with intubation of the esophagus, stomach and proximal small intestine with the findings listed below. The patient tolerat ed this part of the procedure well with no immediate perioperative complications. After completion o f this portion of the procedure, the bed was rotated approximately 180 degrees with starting the colo noscopy portion of the exam. After external examination, the standard colonoscope was then introduce d into the rectum and advanced to the cecum with slow withdrawal of the scope and evaluation of the m ucosa on withdrawal. The quality of the prep was good. The patient tolerated the procedure well wit h no immediate perioperative complications. FINDINGS: EGD FINDINGS: Esophagus, normal appearing mucosa was seen in the proximal, mid and distal esophagus. There was no evidence of erosions, ulcerations, or mass lesions. Both the diaphragmatic pinch and GE junction were both well seen at approximately 45 cm past the incisors. STOMACH: Normal appearing mucosa was seen in the gastric cardia, body, antrum and incisura. A 3-4 m m polyp was seen in the gastric fundus and completely removed with cold biopsy polypectomy. Specimen was retrieved and placed in a jar for evaluation. Otherwise, there was no evidence of erosions or u lcerations. DUODENUM: Normal appearing mucosa was seen in both the duodenal bulb and second portion of the duode num. There was no evidence of erosions, ulcerations, or mass lesions. IMPRESSION: 1. A 3 mm gastric polyp, status post polypectomy consistent with fundic gland polyp. 2. No etiology for right upper quadrant/midepigastric abdominal pain seen during this examination. RECOMMENDATIONS: 1. Follow up on biopsy reports. 2. Proceed to colonoscopy. COLONOSCOPY FINDINGS: DIGITAL RECTAL EXAMINATION: Small to medium size external hemorrhoids as well as perianal skin tags was noted on external examination. COLON FINDINGS: Normal appearing mucosa was seen at the ileocecal valve, appendiceal orifice and cec um. Two polyps measuring 4-5 mm in size were seen in the ascending colon and completely removed with hot snare polypectomy. They were retrieved and placed in a specimen jar for evaluation. Four polyp s measuring 2-3 mm, 2-3 mm, 5-6 mm, and 1.2 cm were seen in the proximal transverse colon. They were completely removed with combination of hot snare polypectomy and cold biopsy polypectomy. They were all retrieved and placed in a specimen jar for evaluation. Five additional polyps were seen in the distal transverse colon measuring 3 mm, 8 mm, 8 mm, 7-8 mm, and 1 cm, all but the smallest polyp was removed with hot snare polypectomy with the smallest polyp removed with cold biopsy forceps. They we re all retrieved and placed in a specimen jar for evaluation. Normal appearing mucosa was seen in th e descending and sigmoid colon. One diverticulum was seen in the sigmoid colon as well. Lastly, a 3 mm polyp was seen in the rectum and completely removed with cold biopsy polypectomy. The specimen w as retrieved and placed in a specimen jar for evaluation. On rectal retroflexion, small internal hem orrhoids and hypertrophied papilla were seen. IMPRESSION: 1. Two ascending colon polyps measuring 4-5 mm in size, completely removed with hot snare polypectom y. 2. Four transverse colon polyps ranging from 3 mm to 1.2 cm, status post cold biopsy forceps and hot snare polypectomy. 3. Five polyps in the distal transverse colon measuring between 3 mm and 1 cm, status post cold snar e and hot snare polypectomy. 4. A 3 mm rectal polyp, status post biopsy forceps. 5. Both internal and external hemorrhoids. 6. Hypertrophied anal papillae. 7. Increased inflammation seen within the rectal vault consistent with stercoral inflammation. RECOMMENDATIONS: 1. Follow up in the GI Clinic in approximately 3 weeks for followup on constipation and biopsy resul ts. 2. Would continue high fiber diet along with Naloxegol and MiraLax for constipation. 3. Would hold any anticoagulation for the next 72 hours given the number of polypectomies performed today and increased risk of bleeding. 4. Repeat colonoscopy interval to be determined by pathology results.
== END 2018-03-20 16:14 | disposition home or self-care (01) ==
LOC: SDC 11:38
PROVIDERS: ATTEND Internal Medicine
PROC: 0DBK8ZX Excision of Ascending Colon, Via Natural or Artificial Opening Endoscopic, Diagnostic (ICD-10-PCS; principal; 2018-03-20)
PROC: 0DBL8ZX Excision of Transverse Colon, Via Natural or Artificial Opening Endoscopic, Diagnostic (ICD-10-PCS; 2018-03-20)
PROC: 0DBP8ZX Excision of Rectum, Via Natural or Artificial Opening Endoscopic, Diagnostic (ICD-10-PCS; 2018-03-20)
PROC: 0DBL8ZX Excision of Transverse Colon, Via Natural or Artificial Opening Endoscopic, Diagnostic (ICD-10-PCS; 2018-03-20)
PROC: 0DB68ZX Excision of Stomach, Via Natural or Artificial Opening Endoscopic, Diagnostic (ICD-10-PCS; 2018-03-20)
DX: D12.2 Benign neoplasm of ascending colon (principal); D12.3 Benign neoplasm of transverse colon; D12.8 Benign neoplasm of rectum; K31.7 Polyp of stomach and duodenum; K64.8 Other hemorrhoids; K64.4 Residual hemorrhoidal skin tags; Z91.041 Radiographic dye allergy status; Z88.8 Allergy status to other drugs, medicaments and biological substances; Z98.890 Other specified postprocedural states
CPT/HCPCS: 88305; 88312; J2250; J2270; J3010; Q0162

== ENCOUNTER 2018-07-25 09:19 | Inpatient (IN) | payer MEDICARE ==
[2018-07-25 10:02] LABS: Bilirubin Negative (Negative); Blood, Urine Trace (Negative); Clarity CLEAR (Clear); Glucose, Urine (Dipstick) Negative (Negative); Leukocyte Negative (Negative); Nitrite Negative (Negative); Protein, Urine (Dipstick) 30 mg/dL (Neg-Trace); Specific Gravity, Urine 1.007 (1.002-1.036); Urobilinogen 0.2 mg/dL (0.2-1.0)
[2018-07-25 10:03] LABS: Bacteria/HPF None Seen HPF (None Seen); Hyaline Casts/LPF 0-3 HYALINE CAST LPF (0-3 Hyaline); Pathc Cast-AUWi Flag 0.29 (0-2.49); RBC/HPF 0-3 HPF (0-3); Squamous Epithelial 0-3 HPF (0-3); WBC/HPF 0-3 HPF (0-3)
[2018-07-25 10:42] LABS: ALT (SGPT) 20 U/L (8-55); AST (SGOT) 30 U/L (5-34); Albumin 3.3 g/dL (3.4-4.8); Alkaline Phosphatase 366 U/L (40-150); Anion Gap 15 mmol/L (10-20); BUN (Urea Nitrogen) 38 mg/dL (8.4-25.7); Bilirubin, Total 1.8 mg/dL (0.2-1.2); Calc. Creatinine Clearance 0 mL/min (70-130); Calcium 11.8 mg/dL (7.8-10.44); Carbon Dioxide 26 mmol/L (23-31); Chloride 97 mmol/L (98-107); Estimated GFR-MDRD 24; Glucose 139 mg/dL (80-115); Potassium 5.2 mmol/L (3.5-5.1); Protein, Total 7.3 g/dL (5.8-8.1); Sodium 133 mmol/L (136-145)
[2018-07-25 10:46] LABS: CKMB 3.4 ng/mL (0-6.6); Troponin I 0.092 ng/mL (< 0.028)
[2018-07-25 10:47] LABS: Band 1 % (5-11); Eosinophils 2 % (0-10); Hemoglobin 15.8 g/dL (14.0-18.0); Lymphocytes 14 % (21-51); MDiff Complete? YES; Mean Corpuscular HGB CONC 32.1 g/dL (32.0-36.0); Mean Corpuscular Hemoglobin 30.2 pg (27.0-31.0); Mean Corpuscular Volume 94.3 fL (78.0-98.0); Mean Platelet Volume 9.7 fL (7.4-10.4); Monocytes 12 % (0-10); Neutrophil 69 % (42-75); PLT Morphology Comment Appears Adequate; Platelet Count 206 thou/uL (130-400); RBC Distribution Width 17.1 % (11.5-14.5); Red Blood Cell (RBC) Count 5.22 mill/uL (4.70-6.10); White Blood Cell (WBC) Count 9.3 thou/uL (4.8-10.8)
[2018-07-25] MEDS ORDERED: Ondansetron ODT 4 MG TAB ONE (11:55)
[2018-07-25] MEDS ORDERED: Senokot 8.6 MG TAB PO PRN (14:44)
[2018-07-25] MEDS ORDERED: Diabetic Tussin 200 MG/10 ML UDCUP PO PRN (14:44)
[2018-07-25] MEDS ORDERED: Benzonatate 100 MG CAP PO PRN (14:44)
[2018-07-25] MEDS ORDERED: Nitroglycerin 0.4 MG TAB (25 Tab Bottle) SL PRN (14:44)
[2018-07-25] MEDS ORDERED: Loratadine 10 MG TAB PO PRN (14:44)
[2018-07-25] MEDS ORDERED: Mag-Al 1200 mg/1200 mg/30 ML UDCUP PO PRN (14:44)
[2018-07-25] MEDS ORDERED: Bisacodyl 5 MG TAB PO PRN (14:44)
[2018-07-25] MEDS ORDERED: cloNIDine 0.1 MG TAB PO PRN (14:44)
[2018-07-25] MEDS ORDERED: hydrALAZINE 20 MG/ML VIAL SLOW IVP PRN (14:44)
[2018-07-25] MEDS ORDERED: Acetaminophen 325 MG TAB PO PRN (14:44)
[2018-07-25] MEDS ORDERED: Calcium Carbonate 500 MG ChewTAB PO PRN (14:44)
[2018-07-25] MEDS ORDERED: Sodium Chloride 0.9% 500 ML IV SCH (14:45)
--- NOTE | 2018-07-25 15:52 | RAD ---
CHEST 1 VIEW: Date: 07/25/18 HISTORY: Pneumonia. Edema. COMPARISON: Chest radiograph dated 01/07/18. FINDINGS: Heart size is enlarged. Moderate layering effusions. Moderate edema. Left basilar air space opacity is present. No large pneumothorax. IMPRESSION: 1. Marked cardiomegaly, moderate effusions, and mild edema. 2. Left basilar opacity may reflect underlying consolidation superimposed upon edema and effusion. POS: [facility]
[2018-07-25] MEDS ORDERED: Aspirin 325 mg Enteric Coated Tablet PO SCH (16:15)
--- NOTE | 2018-07-25 16:37 | HP ---
DATE OF ADMISSION: 07/25/2018 PRIMARY CARE PHYSICIAN: Castillo David M.D. PRIMARY E TAILER: Dr. Ulrich. CHIEF COMPLAINT: Dizziness, confusion and memory loss. HISTORY OF PRESENT ILLNESS: Mr. Arambula is a pleasant 67-year-old male with known history of ischemic cardiomyopathy, status post AICD placement and end-stage COPD with chronic respiratory failure on ho me oxygen who presented to the emergency room with the complaints of dizziness and altered mental sta tus. Mr. Arambula reports that for the last week or so, he has been noticing more and more dizziness. He has also noticed that he is forgetting things easily. They were worried about his stroke who pre sented to the ER. He denies any recent illnesses. He denies any orthopnea, PND, or any worsening of his shortness of breath. He is compliant with his medication and takes his diuretic as prescribed. He denies any other signs or symptoms. Denies any chest pain, fever, chills, nausea, vomiting, diar shikha, dysuria, frequency, urgency or hematuria. He denies any excessive swelling of his legs. Upon presentation to the ER, his blood pressure was 137/101 with a pulse of 119. He has history of c hronic atrial fibrillation for which he is on Eliquis as well. His workup was not very impressive. LABORATORY DATA: His CBC was unremarkable. Serum chemistry, however, did show acute renal insuffici ency with creatinine of 2.65 with a GFR of 24. His baseline creatinine function from earlier this ye ar is 1.05 or close. He does have history of right nephrectomy and only has one functioning kidney. His cardiac enzyme was 0.092, but troponin which seems to be indeterminate with a normal CK-MB. His potassium was mildly elevated at 5.2. Urinalysis showed trace blood and protein. Otherwise, no ket ones, glucose, WBCs or bacteria. By the time, he has presented to the emergency room, all of his symptoms have resolved. He is now be ing admitted for rule out stroke. Unfortunately, the patient has an AICD and cannot undergo MRI. A CT angiogram of the head and neck also cannot be done at this time because of acute renal insufficien cy. PAST MEDICAL HISTORY: 1. Ischemic cardiomyopathy, status post AICD placement in the past with EF of 10%-15% and follows up with Dr. Ulrich. 2. Chronic respiratory failure on home oxygen. Follows up with Dr. Aguilar. 3. Chronic obstructive lung disease with chronic bronchitis. 4. Chronic atrial fibrillation on chronic anticoagulation. 5. History of coronary artery disease. 6. AICD in place. PAST SURGICAL HISTORY: 1. Placement of the AICD. 2. Spinal fusion. 3. Crush injury to right index finger. 4. [place] tooth extraction. 5. Right wrist cyst removal. 6. Chest tube placement and removal. 7. Cervical fusion at C4-C6. 8. Right-sided nephrectomy. 9. Bilateral knee replacement. FAMILY HISTORY: No significant family history of premature coronary artery disease or stroke. SOCIAL HISTORY: He has no history of drug, tobacco or alcohol abuse. and lives with his wif e. ALLERGIES: DEMEROL, IODINE and MEPERIDINE. HOME MEDICATIONS: Further need to be confirmed, but as per the ER records, losartan unknown dose, pr avastatin unknown dose, digoxin unknown dose, metoprolol succinate 25 mg b.i.d., torsemide 20 mg unkn own dose, Eliquis 5 mg b.i.d., and aspirin 81 mg daily. REVIEW OF SYSTEMS: A 12 point review of systems was done. It is negative except for those mentioned in the history and physical. LABORATORY DATA AND IMAGING DATA: Chest x-ray was ordered by myself and upon my review, which shows possible left basilar opacity, possibly underlying edema versus infiltrate. Twelve lead EKG showed b aseline atrial fibrillation at 113 beats per minute by my review. No acute ST or T-wave changes. CB C shows WBC 9.3, hemoglobin 15.8, platelet count of 206, lymphocytes are low at 14%. Serum chemistry shows sodium 133, potassium 5.2, chloride 97, BUN 38, creatinine 2.67. Blood sugar 139, calcium 11. 8, total bilirubin 1.8, alkaline phosphatase 366. Troponin 0.092. PHYSICAL EXAMINATION: VITAL SIGNS: Upon presentation, blood pressure 137/101, pulse of 119, saturating 97% on 2 liters oxy gen, respirations 20 and temperature 98.3. GENERAL: No acute distress, awake, alert, oriented x3, sitting up in bed. He gets easily winded wit h conversation, but he reports that it is normal for him. HEENT: Mucous membranes are slightly dry. No oropharyngeal exudate or erythema. Head is normocepha lic, atraumatic. Pupils are equal, reactive to light and accommodation. Extraocular movement intact . NECK: Supple without any lymphadenopathy, JVD or bruit. CHEST: Reduced breath sound at bases. No crackles or wheezes heard. AICD in place. Rate and rhyth m is difficult to auscultate, but appears regular at this time. ABDOMEN: Obese, soft, nontender, nondistended. EXTREMITIES: Show right lower extremity edema which is pitting in nature and the patient reports juanita t is chronic for him. Bilateral pedal pulses are felt. NEUROLOGIC: Examination is nonfocal. PSYCHIATRIC: Normal affect. SKIN: Free of any rashes or bruises. I feel warm and dry to touch. IMPRESSION AND PLAN: 1. Altered mental status. The patient is currently being admitted for stroke ruled out. Unfortunat tamiko, MRI and CT angio cannot be done for above-mentioned reasons. At this time, we will start him on full dose aspirin and restart his statin and check lipid panel. Also, we will consult Neurology for further recommendations, but his clinical presentation is not very consistent with an acute stroke. We will also order a CT scan of the brain noncontrast that was not done in the emergency room to rul e out any hemorrhage, stroke or masses. The patient also seems to have some evidence of developing p neumonia in the left lower lobe. We will start him on empiric antibiotics and add nebulizers as well . No evidence to suggest sepsis at this time. 2. Elevated troponin likely chronic in nature versus demand ischemia from pneumonia. He also has ac oni renal insufficiency and his elevated troponin can be explained by that. We will continue to tren d serial cardiac enzymes and restart his cardio-prudent medications. 3. Acute renal insufficiency, likely secondary to dehydration and overuse of diuretics with poor ora l intake. At this time, we will hold his diuretics and resuscitate him with gentle IV fluids only fo r 500 mL at 50 mL per hour. We will monitor carefully for any fluid overload situation. 4. Hyperkalemia, mild in nature and likely secondary to acute renal insufficiency. We will monitor it at this time. 5. Hypercalcemia. Once again likely secondary to dehydration. Resuscitated with fluid and recheck in the morning. 6. History of ischemic cardiomyopathy and chronic systolic congestive heart failure. No exacerbatio n at this time. Restart his home medications. 7. Chronic obstructive pulmonary disease and chronic respiratory failure on home oxygen. We will co ntinue on oxygen here as well and add nebulizers as needed basis. 8. Presence of AICD. 9. Chronic atrial fibrillation. Restart his anticoagulation once the dose is confirmed. 10. Hypertension. Restart his home medications when confirmed. He was discharged on Toprol-XL, the last time he was here, this further needs to be confirmed. 11. Code status: FULL CODE. Discussed with the patient. 12. Deep venous thrombosis and gastrointestinal prophylaxis. DISPOSITION: The patient is currently being admitted for further workup for altered mental status an d acute renal insufficiency. Estimated length of stay at this time is at least 2-3 midnights. Furth er management will depend upon his clinical course.
--- NOTE | 2018-07-25 16:43 | CT ---
NONCONTRAST CT HEAD: 07/25/18 HISTORY: Altered mental status for one week which has worsened over the past couple of days. COMPARISON: None available. FINDINGS: There is decreased attenuation of the periventricular white matter which is overall nonspecific but l ikely reflective of chronic small vessel ischemic changes. There is a punctate focus of decreased att enuation in the right lentiform nucleus likely related to a very tiny lacunar infarction of indetermi sara age. There is no evidence of an acute cortical infarction, hemorrhage, mass effect or midline sh ift. Mild cerebral and cerebellar volume loss is present. The ventricular system is normal in size, s hape and position. There is a linear low density focus in the right cerebellar hemisphere suggestive of a small remote i nfarction. There is polypoid mucosal thickening in the left maxillary antrum. The remainder of the visualized pa ranasal sinuses and mastoid air cells are clear. The calvarium structures are intact. IMPRESSION: 1. Punctate tiny lacunar infarction of indeterminate age in the right lentiform nucleus. There i s otherwise no acute intracranial abnormality demonstrated. 2. Chronic small vessel ischemic changes and cerebral volume loss. 3. Remote infarction right cerebellar hemisphere. 4. Sinus disease left maxillary antrum. POS: [facility]
[2018-07-25 17:03] VITALS: BMI 34.2
[2018-07-25] MEDS: Ondansetron HCl/PF 4 MG/2 ML Vial IVP PRN (17:22)
[2018-07-25 17:31] LABS: Actual Bicarbonate (HCO3a) 30.6 mEq/L (22-28); Base Excess (BEa) 5.3 mEq/L (-2.0 to +3.0); CO2 Tension 46.6 mmHg (35.0-45.0); Carboxyhemoglobin (COHb) 1.1 gm% (0.0-3.0); Hemoglobin (Hb) 16.3 g/dL (14.0-18.0); O2 Tension (PaO2) 77.1 mmHg (> 80.0); pH, Arterial 7.44 (7.35-7.45)
[2018-07-25 17:32] LABS: Calcium, Ionized 1.4 mmol/L (1.12-1.30); Potassium - ABG Lab 4.7 mmol/L (3.70-5.30); Puncture Site L.R.
[2018-07-25] MEDS ORDERED: Amiodarone HCl 450 MG, Admixture Fee 1 EACH in Dextrose 5% in Water 250 ML IVPB PRN (18:39)
[2018-07-25] MEDS ORDERED: Digoxin 0.5 MG/2 ML AMP SLOW IVP SCH (18:45)
[2018-07-25] MEDS: HYDROcodone/Acetaminophen 10/325 mg Tablet PO PRN (18:54)
--- NOTE | 2018-07-25 20:25 | ULT ---
CAROTID DUPLEX SONOGRAM 07/25/18 HISTORY: CVA. Vascular disease. FINDINGS: The exam is very limited due to patient noncompliance. RIGHT: Scattered plaque. Color and spectral doppler evaluation, peak systolic velocity of 73 cm/s and IC to CC ratio of 1.1 suggests no hemodynamically significant stenosis within the extracranial right ICA. A ntegrade flow within the vertebral artery. LEFT: Prominent plaque. No flow is detectable within the proximal left ICA. Flow is seen within the vertebr al artery, antegrade, and within the external carotid artery. IMPRESSION: Nonvisualization of the flow within the left internal carotid artery. Evidence of complete or near co mplete stenosis. Please consider conventional or CT arteriography for better characterization. POS: [facility]
[2018-07-25] MEDS: Famotidine 20 MG TAB PO SCH (20:28)
[2018-07-25] MEDS: Apixaban 5 MG TAB PO SCH (20:28)
[2018-07-25] MEDS: Temazepam 15 MG CAP PO SCH (20:29)
[2018-07-25] MEDS: Heparin 5,000 UNITS/ML VIAL SC SCH (20:30)
[2018-07-26 07:15] LABS: Anion Gap 14 mmol/L (10-20); BUN (Urea Nitrogen) 38 mg/dL (8.4-25.7); Calc. Creatinine Clearance 41 mL/min (70-130); Calcium 11.4 mg/dL (7.8-10.44); Carbon Dioxide 28 mmol/L (23-31); Cardiac Risk 2.3 (Less than 4.5); Chloride 98 mmol/L (98-107); Cholesterol 62 mg/dl (< 200 Desired); Estimated GFR-MDRD 27; Glucose 110 mg/dL (80-115); HDL Cholesterol 27 mg/dL (>60 Neg Risk); LDL Cholesterol, Calculated 18 mg/dL; Potassium 5.2 mmol/L (3.5-5.1); Sodium 135 mmol/L (136-145); Triglycerides 85 mg/dL (Less than 150)
[2018-07-26 07:25] LABS: Hemoglobin 15.3 g/dL (14.0-18.0); Mean Corpuscular HGB CONC 30.5 g/dL (32.0-36.0); Mean Corpuscular Hemoglobin 29.1 pg (27.0-31.0); Mean Corpuscular Volume 95.3 fL (78.0-98.0); Mean Platelet Volume 9.7 fL (7.4-10.4); Platelet Count 187 thou/uL (130-400); RBC Distribution Width 17.4 % (11.5-14.5); Red Blood Cell (RBC) Count 5.27 mill/uL (4.70-6.10); White Blood Cell (WBC) Count 7.7 thou/uL (4.8-10.8)
[2018-07-26 08:04] LABS: Band 8 % (5-11); Eosinophils 8 % (0-10); Lymphocytes 28 % (21-51); MDiff Complete? YES; Monocytes 6 % (0-10); Neutrophil 46 % (42-75); PLT Morphology Comment Appears Adequate; RBC Morphology Normal; Reactive Lymphocytes 2 % (0-10)
[2018-07-26] MEDS: Digoxin 0.125 MG TAB PO SCH (09:18)
[2018-07-26] MEDS: Famotidine 20 MG TAB PO SCH (09:18)
[2018-07-26] MEDS: Apixaban 5 MG TAB PO SCH ×2 (09:18→21:15)
[2018-07-26] MEDS: Ondansetron HCl/PF 4 MG/2 ML Vial IVP PRN (09:18)
[2018-07-26] MEDS: Heparin 5,000 UNITS/ML VIAL SC SCH (09:19)
[2018-07-26] MEDS: Aspirin 325 mg Enteric Coated Tablet PO SCH (09:19)
[2018-07-26] MEDS ORDERED: Furosemide 20 MG/2 ML VIAL ONE (10:50)
--- NOTE | 2018-07-26 11:45 | CON ---
DATE OF CONSULTATION: 07/26/2018 REASON FOR CONSULTATION: Elevated creatinine. HISTORY OF PRESENT ILLNESS: This is a very pleasant 67-year-old gentleman who was admitted yesterday for altered mental status and creatinine of more than 2. His prior baseline was less than 1. The p lily has a history of congestive heart failure, history of ejection fraction of 10%. The patient w as noted to have confusion and memory loss. The patient has had chronic atrial fibrillation. The maria luz lott has received no nephrotoxic medication. No further history can be obtained. PAST MEDICAL HISTORY: AICD, CHF, CKD, history of obstructive atrial fibrillation, coronary artery di sease, AICD, history of spinal fusion, history of crush injury. History of wisdom tooth extraction, history of right cyst removal, history of chest tube placement, history of right-sided nephrectomy, h istory of bilateral knee replacement. FAMILY HISTORY: Negative for ESRD. HOME MEDICATIONS: Reviewed. HOSPITAL MEDICATIONS: List reviewed. REVIEW OF SYSTEMS: Fifteen point review of systems was performed and negative except all noted above . GENERAL: Weakness- HEAD: Headache- NECK: No swelling or lumps. NOSE: No epistaxis or discharge. EYES: No diplopia or pain. RESPIRATORY: Dyspnea- CARDIOVASCULAR: Chest pain- GASTROINTESTINAL: Nausea- /INFORMATICS EDUCATOR: Hematuria- MUSCULOSKELETAL: No joint pain. NEUROPSYCHIATIC SYSTEMS: No suicidal ideation. No ideation. SKIN: Denies any rash or ulcer. CONSTITUTIONAL: No fever or chills. PHYSICAL EXAMINATION: GENERAL: Patient is resting. VITAL SIGNS: Afebrile, pulse 94, breathing 16, blood pressure 130/79. OBJECTIVE: See above. Awake, alert, in no acute distress. GENERAL APPEARANCE AND MENTAL STATUS: Fair. HEAD/NECK: Normocephalic. Atraumatic. EYES: EOMI. No deformity. EARS: Clear. No ulcers. NOSE: Intact. No lesions. MOUTH: Clear. No discharge. THROAT: Clear. No exudate. LUNGS: Clear. No crackles. CARDIAC: S1, S2. No rub. ABDOMEN: Benign. BS+. GENITALIA/RECTUM: Sellers absent. BACK/EXTREMITIES: Edema 0+ Ulcer- NEUROLOGICAL: Alert and motor intact. SKIN: Rash- Bruise- LYMPHATICS: Edema- Ulcer- LABORATORY: Hemoglobin 12.3, potassium 5.2, creatinine 2.39. ASSESSMENT AND RECOMMENDATIONS: 1. Acute kidney injury with chronic kidney disease due to cardiorenal syndrome. Continue gentle hyd ration. 2. Hyperkalemia. Agree with Kayexalate. We will repeat potassium. 3. Anemia, stable. 4. Medication based on glomerular filtration rate are appropriate. No indication for dialysis at th is time.
[2018-07-26] MEDS ORDERED: Furosemide 20 MG/2 ML VIAL SLOW IVP SCH (12:45)
--- NOTE | 2018-07-26 14:21 | PDOC.PN ---
- Subjective Encounter Start Date: 07/26/18 Encounter Start Time: 14:20 Subjective: feels more SOB today and wheezing. -: denies any dizziness/near syncope. no CP - Objective Resuscitation Status: Resuscitation Status FULL:Full Resuscitation MAR Reviewed: Yes Vital Signs & Weight: Vital Signs (12 hours) Temp Pulse Pulse Pulse Resp BP BP 07/26/18 11:41 97.5 F L 82 18 07/26/18 11:30 70 16 07/26/18 09:18 94 07/26/18 08:53 97.9 F 94 18 07/26/18 07:55 88 90 130/79 121/93 H 07/26/18 07:50 97.9 F 94 18 07/26/18 04:00 97.7 F 90 16 BP Pulse Ox Pulse Ox Pulse Ox 07/26/18 11:41 114/107 H 93 L 07/26/18 11:30 07/26/18 09:18 07/26/18 08:53 95 07/26/18 07:55 91 L 90 L 07/26/18 07:50 130/79 95 07/26/18 04:00 115/88 97 Weight Weight 221 lb 4.8 oz I&O: 07/25/18 07/26/18 07/27/18 06:59 06:59 06:59 Intake Total 500 Output Total 100 Balance 500 -100 Result Diagrams: 07/26/18 06:33 07/26/18 06:33 Additional Labs: Laboratory Tests 01/07/18 01/09/18 07/25/18 20:17 04:44 09:50 Creatinine 1.05 Troponin I 0.064 H 0.092 H Triglycerides Cholesterol 07/25/18 07/25/18 07/26/18 09:50 15:56 06:33 Creatinine 2.65 H 2.39 H Troponin I 0.110 H Triglycerides 85 Cholesterol 62 Radiology Reviewed by me: Yes (Brain CT-R sided lacunar infarct,age inderminate.Carotid-L stenosis) Phys Exam - Physical Examination Constitutional: NAD HEENT: PERRLA, moist MMs, sclera anicteric, oral pharynx no lesions Neck: no nodes, no JVD, supple, full ROM Respiratory: no wheezing, wheezing present, clear to auscultation bilateral rales b/l.mild wheezing Cardiovascular: RRR, no significant murmur Gastrointestinal: soft, non-tender, no distention, positive bowel sounds Musculoskeletal: pulses present, edema present Neurological: non-focal, normal sensation, moves all 4 limbs Psychiatric: normal affect, A&O x 3 Skin: no rash Dx/Plan (1) Acute and chronic respiratory failure ([id number]) Code(s): J96.20 - ACUTE AND CHR RESP FAILURE, UNSP W HYPOXIA OR HYPERCAPNIA Status: Acute Comment: Cedric Fluid Overload (2) Acute on chronic systolic CHF (congestive heart failure) Code(s): I50.23 - ACUTE ON CHRONIC SYSTOLIC (CONGESTIVE) HEART FAILURE Status : Acute (3) PNA (pneumonia) Code(s): J18.9 - PNEUMONIA, UNSPECIFIED ORGANISM Status: Acute (4) ALONA (acute kidney injury) Code(s): N17.9 - ACUTE KIDNEY FAILURE, UNSPECIFIED Status: Acute (5) CVA (cerebral vascular accident) Code(s): I63.9 - CEREBRAL INFARCTION, UNSPECIFIED Status: Acute Qualifiers: Laterality of affected vessel: right Comment: High dose ASA.increase Statin. neurology to see (6) Chronic atrial fibrillation with RVR Code(s): I48.2 - CHRONIC ATRIAL FIBRILLATION Status: Acute Comment: Restarted Digoxin and Toprol.Cont Eliquis. (7) AICD (automatic cardioverter/defibrillator) present Code(s): Z95.810 - PRESENCE OF AUTOMATIC (IMPLANTABLE) CARDIAC DEFIBRILLATOR Status: Chronic (8) CAD (coronary artery disease) Code(s): I25.10 - ATHSCL HEART DISEASE OF [place] CORONARY ARTERY W/O ANG PCTRS Status: Chronic (9) Ischemic dilated cardiomyopathy Code(s): I25.5 - ISCHEMIC CARDIOMYOPATHY; I42.0 - DILATED CARDIOMYOPATHY Status: Chronic Comment: EF 10-15%.AICD in place (10) Left carotid artery stenosis Code(s): I65.22 - OCCLUSION AND STENOSIS OF LEFT CAROTID ARTERY Status: Chronic (11) End stage chronic obstructive pulmonary disease Code(s): J44.9 - CHRONIC OBSTRUCTIVE PULMONARY DISEASE, UNSPECIFIED Status: Chronic - Plan PT/OT, respiratory therapy, incentive spirometry, out of bed/ambulate, DVT proph w/SCDs Lasix X1 for now.not on any IVF for now. received total 500 ml slowly @50/h -: duonebs given. -: consult nephology as renal Fx still poor.h/o nephrectomy for tumor -: Need CTA neck to assess carotid but can not do d/t ALONA & Allergy to iodine -: will consult CTVS once pt stabilizes * .HR better controlled/monitor .add Amiodarone IV if RVR again * Conult cardiology & PCCM as pt has end stage COPD & CHF. * consult palliative care.Poor prognosis * full code Review of Systems - Review of Systems Constitutional: weakness, malaise. negative: fever, chills, sweats, other ENT: negative: Ear Pain, Ear Discharge, Nose Pain, Nose Discharge, Nose Congestion, Mouth Pain, Mouth Swelling, Throat Pain, Throat Swelling, Other Respiratory: Shortness of Breath, SOB with Excertion, Wheezing. negative: Cough , Dry, Hemoptysis, Pleuritic Pain, Sputum Cardiovascular: orthopnea. negative: chest pain, palpitations, paroxysmal nocturnal dyspnea, edema, light headedness, other Gastrointestinal: negative: Nausea, Vomiting, Abdominal Pain, Diarrhea, Constipation, Melena, Hematochezia, Other Genitourinary: negative: Dysuria, Frequency, Incontinence, Hematuria, Retention , Other Musculoskeletal: negative: Neck Pain, Shoulder Pain, Arm Pain, Back Pain, Hand Pain, Leg Pain, Foot Pain, Other Skin: negative: Rash, Lesions, Stefan, Bruising, Other Neurological: negative: Weakness, Numbness, Incoordination, Change in Speech, Confusion, Seizures, Other - Medications/Allergies Allergies/Adverse Reactions: Allergies Allergy/AdvReac Type Severity Reaction Status Date / Time iodine Allergy Verified 07/25/18 16:59 meperidine Allergy Verified 07/25/18 16:59 Medications: Current Medications Acetaminophen (Tylenol) 650 mg PO Q4H PRN PRN Reason: Headache/Fever or Pain Hydrocodone Bitart/Acetaminophen ([place] 10/325) 1 tab PO TIDPRN PRN PRN Reason: Moderate Pain (4-6) Last Admin: 07/25/18 18:54 Dose: 1 tab Al Hydroxide/Mg Hydroxide (Maalox) 30 ml PO Q6H PRN PRN Reason: Heartburn or Indigestion Albuterol/Ipratropium (Duoneb) 3 ml NEB [id number] PRN PRN Reason: SOB &/or Wheezing Last Admin: 07/26/18 11:30 Dose: 3 ml Apixaban (Eliquis) 5 mg PO BID [facility] Last Admin: 07/26/18 09:18 Dose: 5 mg Aspirin (Ecotrin) 325 mg PO DAILY [facility] Last Admin: 07/26/18 09:19 Dose: 325 mg Atorvastatin Calcium (Lipitor) 20 mg PO HS [facility] Benzonatate (Tessalon) 100 mg PO Q4H PRN PRN Reason: Cough Bisacodyl (Dulcolax) 10 mg PO DAILYPRN PRN PRN Reason: Constipation Calcium Carbonate (Tums) 1,000 mg PO Q4H PRN PRN Reason: Heartburn or Indigestion Clonidine (Catapres) 0.1 mg PO Q4H PRN PRN Reason: Systolic BP > 160 Coenzyme Q10 (Coenzyme Q10) 100 mg PO QAM [facility] Digoxin (Lanoxin) 0.125 mg PO QAWW [facility] Last Admin: 07/26/18 09:18 Dose: 0.125 mg Famotidine (Pepcid) 20 mg PO 0900 [facility] Guaifenesin (Robitussin Sf) 200 mg PO Q4H PRN PRN Reason: Cough Hydralazine HCl (Apresoline) 10 mg SLOW IVP Q4H PRN PRN Reason: Systolic BP > 170 Levofloxacin 500 mg/ Device 100 mls @ 100 mls/hr IVPB Q2D@1700 [facility] Last Admin: 07/25/18 17:21 Dose: 100 mls Amiodarone HCl 450 mg/Miscellaneous Medication 1 each/ Dextrose/Water 259 mls @ 0 mls/hr IVPB INF PRN; Protocol PRN Reason: IF HR SUSTAINS > 120 Lactulose (Lactulose) 20 gm PO DAILYPRN PRN PRN Reason: Constipation Last Admin: 07/26/18 09:18 Dose: 20 gm Loratadine (Claritin) 10 mg PO DAILYPRN PRN PRN Reason: Sinus Symptoms Metoprolol Succinate (Toprol Xl) 25 mg PO QAWW [facility] Last Admin: 07/26/18 09:18 Dose: 25 mg Mometasone Furoate/Formoterol Fumar (Dulera 200 Mcg/5 Mcg Inhaler) 2 puff INH BID-RT [facility] Nitroglycerin (Nitrostat) 0.4 mg SL Q5MIN PRN PRN Reason: Chest Pain Ondansetron HCl (Zofran) 4 mg IVP Q6H PRN PRN Reason: Nausea/Vomiting Last Admin: 07/26/18 09:18 Dose: 4 mg Senna (Senokot) 2 tab PO HSPRN PRN PRN Reason: Constipation Sodium Chloride (Flush - Normal Saline) 10 ml IVF Q12HR [facility] Last Admin: 07/26/18 09:19 Dose: 10 ml Sodium Chloride (Flush - Normal Saline) 10 ml IVF PRN PRN PRN Reason: Saline Flush Temazepam (Restoril) 30 mg PO HS [facility] Last Admin: 07/25/18 20:29 Dose: 30 mg
[2018-07-26] MEDS ORDERED: predniSONE 20 MG TAB PO SCH (14:30)
[2018-07-26 14:37] LABS: Anion Gap 9 mmol/L (10-20); BUN (Urea Nitrogen) 37 mg/dL (8.4-25.7); Calc. Creatinine Clearance 44 mL/min (70-130); Calcium 11.1 mg/dL (7.8-10.44); Carbon Dioxide 32 mmol/L (23-31); Chloride 100 mmol/L (98-107); Estimated GFR-MDRD 29; Glucose 137 mg/dL (80-115); Potassium 4.4 mmol/L (3.5-5.1); Sodium 137 mmol/L (136-145)
--- NOTE | 2018-07-26 14:55 | CON ---
DATE OF CONSULTATION: 07/26/2018 SERVICE: Pulmonary Medicine. HISTORY OF PRESENT ILLNESS: The patient is a 67-year-old white male with past medical history significant for extremely advanced heart disease and advanced lung disease. He was in his usual state of health until about 3-4 days prior to admission. He started having a confusional state. He is admitted to the hospital. He underwent a CT of the head for possible stroke. I confirm the stroke, but truth be told, it was not likely causing some of his symptoms. Dr. Brito believed that this is more of a metabolic process that he presented with. He appeared to have some dehydration on exam. He also had findings consistent with volume overload. He was given a little bit of fluids overnight, but developed increasing respiratory failure. This morning, the fluids were discontinued and he was given a small dose of Lasix. An hour and a half after the Lasix was administered, the patient's shortness of breath actually improved dramatically. Around the time of this difficulty breathing, he was tachycardic to the 150s. He was given a dose of digoxin and it has also improved his heart rate. After his breathing started to settle down a little bit, he got a nebulized medication, which also seemed to improve things further. He denies having any fevers or chills bringing him to the hospital. He has not coughed up any crud other than what his normal sputum production is. He denies any current wheezing, chest pain or palpitations. His mentation has improved overnight with correction of some of the metabolic processes. Otherwise, it seems that he is moving in the right direction presently. PAST MEDICAL HISTORY: 1. Chronic systolic heart failure with an ejection fraction of 10%. 2. Chronic hypoxic respiratory failure. 3. COPD. 4. Atrial fibrillation, permanent. 5. Coronary artery disease. 6. History of CVA. PAST SURGICAL HISTORY: 1. AICD placement. 2. Spinal fusion. 3. Traumatic injury to right finger. 4. [place] tooth extraction. 5. Right wrist cyst removal. 6. Chest tube placement with subsequent removal. 7. Fusion at C4/C6. 8. Nephrectomy on the right. 9. Total knee replacement, bilateral. FAMILY HISTORY: Noncontributory. SOCIAL HISTORY: Negative for current alcohol, tobacco or illicit drug use. He has a remote history of smoking. He lives with his . He has no exposure to chemicals, dust, asbestos or tuberculosis. ALLERGIES: DEMEROL, IODINE, MEPERIDINE. MEDICATIONS: List of his inpatient medications was reviewed. A couple of small updates were made. REVIEW OF SYSTEMS: General, head, ears, eyes, nose, throat, cardiovascular, respiratory, GI, , musculoskeletal, neurologic and skin is negative except as mentioned in the HPI. PHYSICAL EXAMINATION: VITAL SIGNS: Afebrile, pulse 82, blood pressure 114/107, respirations 18, saturation 93% on room air. GENERAL: The patient is awake and alert, in no apparent distress. LUNGS: There is decreased air entry with dependent crackles present. The air entry is roughly symmetric at the bases. There is a prolonged expiratory phase , but no wheezing or rhonchi are appreciated. HEART: Normal rate and regular. ABDOMEN: Soft, nontender, nondistended. Bowel sounds are positive. MUSCULOSKELETAL: No cyanosis or clubbing. There is no pitting in the bilateral lower extremities. NEUROLOGIC: Grossly nonfocal. LABORATORY DATA: WBC 7.7, hemoglobin 15.3, platelets 187,000. D-dimer 2.72, INR 1.4. PH 7.44, pCO2 of 46, pO2 77. Creatinine 2.39, BUN 38, bicarbonate 28. Anion gap is only 14. Sodium 135 and improving. Basic metabolic profile is otherwise unremarkable. Troponin is up trending to 0.11. Liver function studies were previously unremarkable except for a total bilirubin of 1.8. Urinalysis is unremarkable. Blood cultures x2 remain negative. IMAGIN. CT of the brain demonstrates a small CVA in the right lentiform nucleus. Chronic ischemic changes are present. Remote right-sided cerebellar infarction is present. 2. Ultrasound of the neck demonstrates near 100% occlusion of the left ICA. 3. Chest x-ray demonstrates significant cardiomegaly and a small right-sided pleural effusion, demonstrates a right-sided scar tissue in the base of the lung. The left lung is completely obscured by the heart border. ASSESSMENT: 1. Acute hypoxic respiratory failure. 2. Chronic hypercapnic respiratory failure. 3. Chronic obstructive pulmonary disease without acute exacerbation. 4. Acute on chronic systolic heart failure. 5. Acute kidney injury secondary to cardiorenal syndrome. 6. CVA, small. DISCUSSION AND PLAN: We will need to optimize heart function through time. We will have to control his rate to the best of our ability. Pulmonary Critical Care will continue to follow along. I will add small dose of steroids, schedule some nebulized medications. Currently, no indication for antibiotics. We monitor for signs of sepsis/infection and if they are present, we will reintroduce antibiotics, which are going to be discontinued at this moment. Pulmonary Critical Care will continue to follow along. 70 minutes have been devoted to this patient in various activities. I personally reviewed all imaging studies and laboratory data noted within this document. For fifty percent of this time, I was interacting with the patient at the bedside or coordinating care with the care team. For the remainder of the time I was immediately available to the patient in the hospital unit. JACKIE
--- NOTE | 2018-07-26 16:52 | CON ---
DATE OF CONSULTATION: 07/26/2018 CARDIOLOGY CONSULTATION REASON FOR CONSULTATION: Possible stroke. HISTORY OF PRESENT ILLNESS: Mr. Arambula is a very pleasant 67-year-old white gentleman who comes to [facility] for altered mentation. He was altered by 's report and felt dizzy. He apparently durán ve been noticing more dizziness in the last week and forgetting things much easier than normal. By [facility] time he was in the ER, he was back to normal. He has a history of cardiomyopathy, has as an occlu ded RCA, but the extent of his coronary artery disease is not enough to account for the amount of LV dysfunction that he has, he has got mostly nonischemic cardiomyopathy. His EF was about 10%-15% and he has an AICD in placed about 4 years ago. This was done all in [place]. He denies any chest pain, tightness, pressure. His shortness of breath is at baseline given his history of chronic obstructive pulmonary disease. PAST MEDICAL HISTORY: 1. Ischemic cardiomyopathy, status post AICD placement. 2. Chronic obstructive pulmonary disease. 3. Chronic home O2. 4. Chronic atrial fibrillation. 5. History of rectal bleed. 6. Multiple polyps removed from his stomach as well as his abdomen about 4 months ago, all were nan omatous polyps. 7. History of coronary artery disease and occluded RCA with collaterals. 8. AICD in place. PAST SURGICAL HISTORY: 1. AICD in place. 2. Spinal fusion. 3. Crossing of the right index finger. 4. Right wrist cyst removal. 5. Cervical fusion. 6. Right-sided nephrectomy. 7. Bilateral knee replacement. FAMILY HISTORY: Noncontributory. SOCIAL HISTORY: No alcohol, tobacco or drugs. ALLERGIES: DEMEROL, IODINE, and MEPERIDINE. OUTPATIENT MEDICATIONS: Include: 1. Temazepam. 2. Digoxin 125 mcg p.o. daily. 3. Symbicort. 4. Aspirin 81 a day. 5. Zofran 4 mg q.6 hours p.r.n. 6. Metoprolol succinate 25 mg a day. 7. Losartan 50 mg every day. 8. Atrovent. 9. [place]. 10. Co-Q10. 11. Torsemide 20 mg a day. 12. Pravastatin 40 mg every day. 13. Eliquis 5 mg p.o. b.i.d. REVIEW OF SYSTEMS: A 12-point review of systems was done and is all negative unless stated in the hi story of present illness. PHYSICAL EXAMINATION: VITAL SIGNS: Temperature 97.9, pulse 70, respiration rate 16, sat 96% on room air, blood pressure 11 9/87. GENERAL: Awake, alert, oriented x3, in no distress. HEENT: Normocephalic, atraumatic. NECK: Supple. LUNGS: Have reduced breath sounds bilaterally. CARDIOVASCULAR: S1, S2, no S3, S4, distant heart sounds. Grade 2/6 systolic murmur at right upper s ternal border. ABDOMEN: Soft, positive bowel sounds. EXTREMITIES: Trace edema. SKIN: Warm and dry. LABORATORY DATA: Laboratory work was reviewed. CBC was unremarkable. ABG was reviewed. Chemistrie s were reviewed. Creatinine has been much higher than baseline at 2.6, now down to 2.27. Troponin h as been indeterminate 0.09-0.11, albumin of 3.3, triglycerides of 85, cholesterol 62, LDL of 18, HDL of 27. UA was unremarkable. IMAGING DATA: Chest x-ray show cardiomegaly with moderate effusions and mild edema left basilar opac ity may be consolidation. Carotid Doppler shows complete occlusion of the left internal carotid artery. No significant stenosi s of the right carotid artery. ASSESSMENT AND PLAN: 1. Acute on chronic systolic heart failure. 2. Nonischemic cardiomyopathy. 3. Coronary artery disease stable. 4. Remote cerebrovascular accident. 5. Chronic atrial fibrillation and RVR. 6. Acute on chronic kidney injury, likely cardiorenal. ASSESSMENT AND PLAN: 1. We will continue Eliquis for now. We will give IV Lasix to try to get some of his fluid off and hopefully improve forward flow, so the kidneys will get better, already improving now. 2. If this small punctate stroke is in the setting of having been on Eliquis. He would be a roldan te for Watchman or Lariat device. I have discussed with him, and he is in agreement to try and talk with manager asset. We will wait for him to be a little more stable before we sent in consult. 3. We will continue current medications for rate control. His heart rate is back into the 70s. Thank you for letting us to participate in the care of your patient. We will follow.
[2018-07-26] MEDS ORDERED: Mometasone/Formoterol 120 PUFF INHALER INH SCH (18:30)
[2018-07-26] MEDS ORDERED: Non-Formulary Item 1 EACH (Budesonide-Formoterol [Symbicort 160-4.5] 2 PUFF) INH SCH (21:00)
[2018-07-26] MEDS: Atorvastatin Calcium 20 MG TAB PO SCH (21:15)
[2018-07-26] MEDS: Temazepam 15 MG CAP PO SCH (21:15)
--- NOTE | 2018-07-27 04:37 | CON ---
DATE OF CONSULTATION: 07/26/2018 REFERRING PHYSICIAN: Inessa James M.D. REASON FOR CONSULTATION: Questionable stroke. HISTORY OF PRESENT ILLNESS: Mr. Arambula is a pleasant 67-year-old male who has been consulted for evaluation of questionable stroke. History is obtained from patient as well as patient's dictated H&P note. The patient reports that over the past 1 week, he has been having increasing episodes of dizziness. He feels as if everything is spinning. He is also having increasing difficulty with balance and walking, he feels wobbly while walking. He is also having increasing episodes of difficulty with his memory and forgetting things easily. Dizziness was not improving and thus he decided to present to the [facility] room. He denied having any double vision, ptosis, dysarthria, dysphagia, numbness, tingling or weakness on upper and lower extremities. PAST MEDICAL HISTORY: Significant for ischemic cardiomyopathy, chronic respiratory failure, COPD, chronic atrial fibrillation, coronary artery disease. PAST SURGICAL HISTORY: Significant for AICD placement, spinal fusion, right wrist cyst removal, chest tube placement and removal, right-sided nephrectomy and bilateral knee replacement. FAMILY HISTORY: Noncontributory. SOCIAL HISTORY: He denies smoking, alcohol use, or illicit drug use. He is . CURRENT MEDICATIONS: Please review MAR. ALLERGIES: Include DEMEROL, IODINE, and MEPERIDINE. REVIEW OF SYSTEMS: As mentioned above in HPI, otherwise negative. PHYSICAL EXAMINATION: VITAL SIGNS: Blood pressure of 114/107, pulse of 82, temperature 97.5, respirations of 18 O2 sats of 93% on room air. GENERAL: Well-developed, well-nourished male in no apparent distress. RESPIRATORY: Clear to auscultation bilaterally. CARDIOVASCULAR: Regular rate and rhythm. NEUROLOGIC: Mental status: The patient is awake, alert, oriented x3. Speech and language: Fluent speech. Cranial nerves: Pupils are 3 mm and reactive. Visual ramirez are intact. External muscles are intact. No nystagmus noted. Face is symmetric. Tongue and uvula midline. Motor exam showed normal tone and bulk with a 5/5 strength in both upper and lower extremities. Sensory: Sensation is intact and symmetric. Deep tendon reflexes 1 to 2+ reflexes in both upper and lower extremities. Babinski: Plantar responses flexion bilaterally. Coordination intact to [id number] and finger tapping bilaterally. LABORATORY DATA: Reviewed, which included CBC, CMP, urinalysis which is significant for sodium of 135, potassium 5.2, BUN of 38, creatinine of 2.39, troponin was 0.11, otherwise unremarkable. IMAGING STUDIES: CT head without contrast was reviewed, which showed no acute intracranial abnormality. IMPRESSION: 1. Dizziness. 2. Malignant hypertension. 3. Chronic atrial fibrillation. Mr. Arambula is a pleasant 67-year-old male who presented with episodes of dizziness and forgetfulness. On arrival, his blood pressure was noted to be significantly elevated. I have reviewed his CT scan, which does not show any acute intracranial abnormality. Unfortunately due to his AICD placement, he was not able to obtain MRI brain. In my opinion, these symptoms are likely secondary to underlying medical issues with poorly controlled blood pressure and chronic atrial fibrillation as the culprit of his symptoms. No further neurologic workup needed from my standpoint. Continue supportive care. Thank you for the consultation. JACKIE
[2018-07-27] MEDS: HYDROcodone/Acetaminophen 10/325 mg Tablet PO PRN ×2 (05:59→10:13)
--- NOTE | 2018-07-27 10:03 | RAD ---
CHEST 2 VIEWS: HISTORY: Evaluate for effusion. COMPARISON: Chest radiograph 07/25/18. FINDINGS: Heart size is markedly enlarged. Layering left effusion. Small right effusion. Mild edema. No pne umothorax. Dual-lead AICD/pacer is present. IMPRESSION: Unchanged examination. POS: [facility]
[2018-07-27] MEDS: Apixaban 5 MG TAB PO SCH ×2 (10:09→21:22)
[2018-07-27] MEDS: predniSONE 20 MG TAB PO SCH (10:09)
[2018-07-27] MEDS: Famotidine 20 MG TAB PO SCH (10:09)
[2018-07-27] MEDS: Ubidecarenone 50 MG CAP PO SCH (10:09)
[2018-07-27] MEDS: Digoxin 0.125 MG TAB PO SCH (10:09)
[2018-07-27] MEDS: Aspirin 325 mg Enteric Coated Tablet PO SCH (10:09)
--- NOTE | 2018-07-27 10:09 | CT ---
CT ABDOMEN AND PELVIS WITHOUT CONTRAST: HISTORY: Acute kidney injury. History of a mass. COMPARISON: CT abdomen and pelvis without contrast 01/07/18. FINDINGS: Mild atelectatic changes in the lung bases. Small pericardial effusion. Heart size is markedly enla rged. Aortobiiliac stent is similar. Aneurysmal dilatation of the bilateral common iliac arteries. The liver contour is nodular. Prior cholecystectomy. No dilated loops of large or small bowel. IMPRESSION: 1. Marked cardiomegaly with small pericardial effusions. 2. Small bilateral pleural effusions. 3. Lower lobe edema. 4. Nodular contour of the liver can be seen with cirrhosis. 5. No significant size increase of the aortic aneurysmal dilatation with internal aortobiiliac stent . 6. Nonobstructive renal calculi, punctate. This is of the right kidney. 7. Prior left nephrectomy without abnormal nodularity within the left nephrectomy bed. POS: [facility]
--- NOTE | 2018-07-27 11:44 | PDOC.CTH ---
Cardiology Progress Note - Subjective No new issues. - Objective Vital Signs Temp Pulse Resp BP Pulse Ox 07/27/18 11:37 98.6 F 90 16 118/81 94 L 07/27/18 10:09 96 07/27/18 08:17 97.4 F L 96 18 95 07/27/18 07:47 97.4 F L 96 18 130/84 99 07/27/18 06:14 94 16 94 L 07/27/18 04:00 97.5 F L 87 18 127/87 98 07/27/18 02:44 96 07/27/18 00:14 114 H 20 96 07/27/18 00:00 96.6 F L 102 H 24 H 144/99 H 92 L Weight 217 lb 07/26/18 07/27/18 07/28/18 06:59 06:59 06:59 Intake Total 500 920 360 Output Total 300 Balance 500 620 360 - Physical Examination General/Neuro: alert & oriented x3, NAD Neck: no JVD present Lungs: CTA, unlabored respirations Heart: RRR Abdomen: NT/ND Extremities: + edema B (1+) - Telemetry Telemetry Rhythm: NSR - Labs Result Diagrams: 07/26/18 06:33 07/26/18 14:11 Troponin/CKMB CK-MB (CK-2) 3.4 ng/mL (0-6.6) 07/25/18 09:50 Troponin I 0.110 ng/mL (< 0.028) H 07/25/18 15:56 - Assessment/Plan 1. Acute on chronic systolic heart failure. 2. Hx of CVA 3. Non ischemic CM 4. Presence of an AICD. 5. HTN 6. Chronic afib, rate controlled. 7. AMS 8. ALONA on CKD, cardiorenal most likely. PLAN: - Unlikely that his presentation is related to an acute CVA. - Will plan on diuresing better, increase IV lasix. - Will ask for an interrogation of his AICD. - I believe it is not MRI compatible but will check with [employer] reps. - Continue Eliquis for CVA prophylaxis. - Will follow.
[2018-07-27] MEDS ORDERED: Melatonin 3 MG TAB PO PRN (13:58)
--- NOTE | 2018-07-27 14:04 | PDOC.PN ---
- Subjective Encounter Start Date: 07/27/18 Encounter Start Time: 14:02 Subjective: had extreme confusion last night but bettter & basline this morning -: pt is aware of the confusion overnight -: breathing better but still does not feel good - Objective Resuscitation Status: Resuscitation Status FULL:Full Resuscitation MAR Reviewed: Yes Vital Signs & Weight: Vital Signs (12 hours) Temp Pulse Resp BP Pulse Ox 07/27/18 13:51 86 16 90 L 07/27/18 11:37 98.6 F 90 16 118/81 94 L 07/27/18 10:09 96 07/27/18 08:17 97.4 F L 96 18 95 07/27/18 07:47 97.4 F L 96 18 130/84 99 07/27/18 06:14 94 16 94 L 07/27/18 04:00 97.5 F L 87 18 127/87 98 07/27/18 02:44 96 Weight Weight 217 lb I&O: 07/26/18 07/27/18 07/28/18 06:59 06:59 06:59 Intake Total 500 920 360 Output Total 300 Balance 500 620 360 Result Diagrams: 07/26/18 06:33 07/26/18 14:11 Additional Labs: Laboratory Tests 01/07/18 01/07/18 01/07/18 12:45 17:08 20:17 Creatinine Troponin I 0.077 H 0.081 H 0.064 H 07/25/18 07/25/18 07/25/18 09:50 09:50 15:56 Creatinine 2.65 H Troponin I 0.092 H 0.110 H 07/26/18 07/26/18 06:33 14:11 Creatinine 2.39 H 2.27 H Troponin I Phys Exam - Physical Examination Constitutional: NAD HEENT: PERRLA, moist MMs, sclera anicteric, oral pharynx no lesions Neck: no nodes, no JVD, supple, full ROM Respiratory: no wheezing, no rales, no rhonchi, clear to auscultation bilateral Cardiovascular: RRR, no significant murmur, no rub Gastrointestinal: soft, non-tender, no distention, positive bowel sounds Musculoskeletal: no edema, pulses present Neurological: non-focal, normal sensation, moves all 4 limbs Psychiatric: normal affect, A&O x 3 Skin: no rash Dx/Plan (1) Acute and chronic respiratory failure ([id number]) Code(s): J96.20 - ACUTE AND CHR RESP FAILURE, UNSP W HYPOXIA OR HYPERCAPNIA Status: Acute Comment: Cedric Fluid Overload (2) Acute on chronic systolic CHF (congestive heart failure) Code(s): I50.23 - ACUTE ON CHRONIC SYSTOLIC (CONGESTIVE) HEART FAILURE Status : Acute (3) Delirium Code(s): R41.0 - DISORIENTATION, UNSPECIFIED Status: Acute (4) ALONA (acute kidney injury) Code(s): N17.9 - ACUTE KIDNEY FAILURE, UNSPECIFIED Status: Acute (5) Chronic atrial fibrillation with RVR Code(s): I48.2 - CHRONIC ATRIAL FIBRILLATION Status: Acute Comment: Restarted Digoxin and Toprol.Cont Eliquis. (6) PNA (pneumonia) Code(s): J18.9 - PNEUMONIA, UNSPECIFIED ORGANISM Status: Suspected (7) CVA (cerebral vascular accident) Code(s): I63.9 - CEREBRAL INFARCTION, UNSPECIFIED Status: Suspected Qualifiers: Laterality of affected vessel: right Comment: High dose ASA.increase Statin. neurology to see (8) AICD (automatic cardioverter/defibrillator) present Code(s): Z95.810 - PRESENCE OF AUTOMATIC (IMPLANTABLE) CARDIAC DEFIBRILLATOR Status: Chronic (9) CAD (coronary artery disease) Code(s): I25.10 - ATHSCL HEART DISEASE OF [place] CORONARY ARTERY W/O ANG PCTRS Status: Chronic (10) Ischemic dilated cardiomyopathy Code(s): I25.5 - ISCHEMIC CARDIOMYOPATHY; I42.0 - DILATED CARDIOMYOPATHY Status: Chronic Comment: EF 10-15%.AICD in place (11) Left carotid artery stenosis Code(s): I65.22 - OCCLUSION AND STENOSIS OF LEFT CAROTID ARTERY Status: Chronic (12) End stage chronic obstructive pulmonary disease Code(s): J44.9 - CHRONIC OBSTRUCTIVE PULMONARY DISEASE, UNSPECIFIED Status: Chronic - Plan plan discussed w/ family, PT/OT, respiratory therapy, incentive spirometry, out of bed/ambulate, DVT proph w/SCDs cont diuresis. I/os.home meds.cardiology following.AICD interrogation -: cont O2,nebs,IS ,Prednisosne .PCCM following -: Checking to see if MRI can be done w AICD to r/o CVA -: cont eliquis for now.rate controlled better .On BB,Digoxin -: add melatonin hs prn to avoid sun downing /delirium * . Review of Systems - Review of Systems Constitutional: weakness, malaise. negative: fever, chills, sweats, other Respiratory: Shortness of Breath, SOB with Excertion, Wheezing. negative: Cough , Dry, Hemoptysis, Pleuritic Pain, Sputum Cardiovascular: edema. negative: chest pain, palpitations, orthopnea, paroxysmal nocturnal dyspnea, light headedness, other Gastrointestinal: negative: Nausea, Vomiting, Abdominal Pain, Diarrhea, Constipation, Melena, Hematochezia, Other Genitourinary: negative: Dysuria, Frequency, Incontinence, Hematuria, Retention , Other Musculoskeletal: negative: Neck Pain, Shoulder Pain, Arm Pain, Back Pain, Hand Pain, Leg Pain, Foot Pain, Other Skin: negative: Rash, Lesions, Stefan, Bruising, Other Neurological: Confusion. negative: Weakness, Numbness, Incoordination, Change in Speech, Seizures, Other - Medications/Allergies Allergies/Adverse Reactions: Allergies Allergy/AdvReac Type Severity Reaction Status Date / Time iodine Allergy Verified 07/25/18 16:59 meperidine Allergy Verified 07/25/18 16:59 Medications: Current Medications Acetaminophen (Tylenol) 650 mg PO Q4H PRN PRN Reason: Headache/Fever or Pain Hydrocodone Bitart/Acetaminophen ([place] 10/325) 1 tab PO TIDPRN PRN PRN Reason: Moderate Pain (4-6) Last Admin: 07/27/18 10:13 Dose: 1 tab Al Hydroxide/Mg Hydroxide (Maalox) 30 ml PO Q6H PRN PRN Reason: Heartburn or Indigestion Albuterol/Ipratropium (Duoneb) 3 ml NEB [id number] [facility] Last Admin: 07/27/18 13:51 Dose: 3 ml Apixaban (Eliquis) 5 mg PO BID [facility] Last Admin: 07/27/18 10:09 Dose: 5 mg Aspirin (Ecotrin) 325 mg PO DAILY [facility] Last Admin: 07/27/18 10:09 Dose: 325 mg Atorvastatin Calcium (Lipitor) 20 mg PO HS [facility] Last Admin: 07/26/18 21:15 Dose: 20 mg Bisacodyl (Dulcolax) 10 mg PO DAILYPRN PRN PRN Reason: Constipation Calcium Carbonate (Tums) 1,000 mg PO Q4H PRN PRN Reason: Heartburn or Indigestion Clonidine (Catapres) 0.1 mg PO Q4H PRN PRN Reason: Systolic BP > 160 Coenzyme Q10 (Coenzyme Q10) 100 mg PO [facility] Last Admin: 07/27/18 10:09 Dose: 100 mg Digoxin (Lanoxin) 0.125 mg PO [facility] Last Admin: 07/27/18 10:09 Dose: 0.125 mg Famotidine (Pepcid) 20 mg PO 0900 [facility] Last Admin: 07/27/18 10:09 Dose: 20 mg Furosemide (Lasix) 40 mg SLOW IVP 0600,1400 [facility] Guaifenesin (Robitussin Sf) 200 mg PO Q4H PRN PRN Reason: Cough Hydralazine HCl (Apresoline) 10 mg SLOW IVP Q4H PRN PRN Reason: Systolic BP > 170 Amiodarone HCl 450 mg/Miscellaneous Medication 1 each/ Dextrose/Water 259 mls @ 0 mls/hr IVPB INF PRN; Protocol PRN Reason: IF HR SUSTAINS > 120 Lactulose (Lactulose) 20 gm PO DAILYPRN PRN PRN Reason: Constipation Last Admin: 07/26/18 09:18 Dose: 20 gm Loratadine (Claritin) 10 mg PO DAILYPRN PRN PRN Reason: Sinus Symptoms Melatonin (Melatonin) 6 mg PO HS PRN PRN Reason: Insomnia Metoprolol Succinate (Toprol Xl) 25 mg PO [facility] Last Admin: 07/27/18 10:09 Dose: 25 mg Nitroglycerin (Nitrostat) 0.4 mg SL Q5MIN PRN PRN Reason: Chest Pain Ondansetron HCl (Zofran) 4 mg IVP Q6H PRN PRN Reason: Nausea/Vomiting Last Admin: 07/26/18 09:18 Dose: 4 mg [facility]Pred[facility]one) [facility] Stop: 07/30/18 08:01 Last Admin: 07/27/18 10:09 Dose: 40 mg Senna (Senokot) 2 tab PO HSPRN PRN PRN Reason: Constipation Sodium Chloride (Flush - Normal Saline) 10 ml IVF Q12HR [facility] Last Admin: 07/27/18 10:10 Dose: 10 ml Sodium Chloride (Flush - Normal Saline) 10 ml IVF PRN PRN PRN Reason: Saline Flush Temazepam (Restoril) 30 mg PO HS [facility] Last Admin: 07/26/18 21:15 Dose: 30 mg
[2018-07-27] MEDS: Furosemide 40 MG/4 ML VIAL SLOW IVP SCH (15:32)
--- NOTE | 2018-07-27 16:46 | PRG ---
DATE OF SERVICE: 07/27/2018 SERVICE: Pulmonary Medicine. INTERVAL HISTORY: The patient is doing fine from a respiratory standpoint. He is breathing comfortably this morning. He was able to sleep a little bit through the day. Last night, he is very agitated. He was very confused and could not understand the situation where he was. This type of behavior has never happened to him before based on what the is saying today. Now that he is sleeping, she requested that I do not wake him up, which is reasonable. His breathing, however, has improved a little bit overnight. OBJECTIVE: VITAL SIGNS: Afebrile, pulse 93, blood pressure 126/82, respirations 16, saturation 94% on 2 liters nasal cannula. GENERAL: The patient is sleeping. He is breathing comfortably, but has witnessed apnea at bedside. HEART: Normal rate, regular. ABDOMEN: Soft, nontender, nondistended. Bowel sounds are positive. LUNGS: Decent air entry. There is a prolonged expiratory phase. Crackles are present. I do not appreciate any wheezing or rhonchi today. MUSCULOSKELETAL: No cyanosis or clubbing. There is trace to 1+ pitting in the bilateral lower extremities. NEUROLOGIC: Grossly nonfocal. LABORATORY DATA: Creatinine 2.27, BUN 37, anion gap 9, bicarbonate 32. Calcium 11.4. IMAGIN. CT of the abdomen and pelvis demonstrate marked cardiomegaly with small pericardial effusion. Small bilateral pleural effusions. Edema is present in the bilateral lower lobes. Liver has a nodular contour. His abnormal nodularity within the left nephrectomy bed. 2. Chest x-ray demonstrates mild edema without acute abnormality. There is small bilateral effusions present. ASSESSMENT: 1. Acute on chronic hypoxic respiratory failure. 2. Chronic hypercapnic respiratory failure. 3. Chronic obstructive pulmonary disease without acute exacerbation. 4. Acute on chronic systolic heart failure. 5. Acute kidney injury secondary to cardiorenal syndrome. DISCUSSION AND PLAN: The patient is doing fine from a respiratory standpoint. We need to optimize heart function and diurese the patient through time. He is still a touch volume overloaded. Pulmonary Critical Care will continue to follow along. I will introduce a small dose of Haldol tonight to see if we can decrease his mental status changes. On room air, I tested him and is 84%. [employer], his previous [employer] company has lost the contract to supply oxygen. As such , they are recalling all of their equipment that has not gotten paid for. We are going to work on setting him up with new oxygen through a different DME company. JACKIE
[2018-07-27 17:02] LABS: ALT (SGPT) 21 U/L (8-55); AST (SGOT) 41 U/L (5-34); Albumin 3.3 g/dL (3.4-4.8); Alkaline Phosphatase 306 U/L (40-150); Anion Gap 18 mmol/L (10-20); BUN (Urea Nitrogen) 39 mg/dL (8.4-25.7); Bilirubin, Total 1.6 mg/dL (0.2-1.2); Calc. Creatinine Clearance 45 mL/min (70-130); Calcium 10.4 mg/dL (7.8-10.44); Carbon Dioxide 25 mmol/L (23-31); Chloride 97 mmol/L (98-107); Estimated GFR-MDRD 31; Globulin 4.4 g/dL (2.4-3.5); Glucose 204 mg/dL (80-115); Potassium 6.4 mmol/L (3.5-5.1); Protein, Total 7.7 g/dL (5.8-8.1); Sodium 134 mmol/L (136-145)
[2018-07-27] MEDS: Ondansetron HCl/PF 4 MG/2 ML Vial IVP PRN (21:21)
[2018-07-27] MEDS: Temazepam 15 MG CAP PO SCH (21:22)
[2018-07-27] MEDS: Atorvastatin Calcium 20 MG TAB PO SCH (21:22)
--- NOTE | 2018-07-27 21:34 | PRG ---
DATE OF SERVICE: 07/27/2018 SUBJECTIVE: This is a 67-year-old gentleman being seen for acute kidney injury. The patient denies any nausea, vomiting or chest pain. PHYSICAL EXAMINATION: GENERAL: The patient is awake and alert. VITAL SIGNS: Afebrile, pulse breathing 16, blood pressure 124/78. GENERAL APPEARANCE AND MENTAL STATUS: Fair. HEAD/NECK: Normocephalic. Atraumatic. EYES: EOMI. No deformity. EARS: Clear. No ulcers. NOSE: Intact. No lesions. MOUTH: Clear. No discharge. THROAT: Clear. No exudate. LUNGS: Clear. No crackles. CARDIAC: S1, S2. No rub. ABDOMEN: Benign. BS+. GENITALIA/RECTUM: Sellers absent. BACK/EXTREMITIES: Edema 0+ Ulcer-. NEUROLOGICAL: Alert and motor intact. SKIN: Rash- Bruise-. LYMPHATICS: Edema- Ulcer-. LABORATORY DATA: Labs show hemoglobin 15.3. Creatinine was 2.2. ASSESSMENT AND RECOMMENDATIONS: 1. Acute kidney injury with chronic kidney disease, stable. 2. Hypertension, stable. 3. Anemia, stable. 4. Hypercalcemia, we would recommend checking PTH, calcium 5. Medications based on glomerular filtration rate are appropriate. Overall, prognosis is poor.
[2018-07-28 04:34] LABS: #Basophils 0.1 thou/uL (0.0-0.2); #Lymphocytes 1.8 thou/uL (1.20-3.40); #Monocytes 1.4 thou/uL (0.11-0.59); #Neutrophils 7.5 thou/uL (1.40-6.50); %Basophils 0.5 % (0.0-1.0); %Eosinophils 0.1 % (0.0-10.0); %Lymphocytes 16.4 % (21.0-51.0); %Monocytes 12.7 % (0.0-10.0); %Neutrophils 70.3 % (42.0-75.0); Hemoglobin 16.1 g/dL (14.0-18.0); Mean Corpuscular HGB CONC 32.2 g/dL (32.0-36.0); Mean Corpuscular Hemoglobin 30.2 pg (27.0-31.0); Mean Platelet Volume 9.4 fL (7.4-10.4); Platelet Count 185 thou/uL (130-400); Red Blood Cell (RBC) Count 5.32 mill/uL (4.70-6.10); White Blood Cell (WBC) Count 10.7 thou/uL (4.8-10.8)
[2018-07-28 04:45] LABS: Anion Gap 16 mmol/L (10-20); BUN (Urea Nitrogen) 39 mg/dL (8.4-25.7); Calc. Creatinine Clearance 52 mL/min (70-130); Calcium 10.6 mg/dL (7.8-10.44); Carbon Dioxide 29 mmol/L (23-31); Chloride 97 mmol/L (98-107); Estimated GFR-MDRD 36; Glucose 129 mg/dL (80-115); Sodium 137 mmol/L (136-145)
[2018-07-28] MEDS: Furosemide 40 MG/4 ML VIAL SLOW IVP SCH ×2 (05:50→13:16)
[2018-07-28] MEDS: Apixaban 5 MG TAB PO SCH ×2 (08:25→20:10)
[2018-07-28] MEDS: Ubidecarenone 50 MG CAP PO SCH (08:25)
[2018-07-28] MEDS: Digoxin 0.125 MG TAB PO SCH (08:25)
[2018-07-28] MEDS: Famotidine 20 MG TAB PO SCH (08:28)
[2018-07-28] MEDS: Aspirin 325 mg Enteric Coated Tablet PO SCH (08:28)
[2018-07-28] MEDS: predniSONE 20 MG TAB PO SCH (08:28)
[2018-07-28] MEDS ORDERED: Metolazone 5 MG TAB PO SCH (09:00)
--- NOTE | 2018-07-28 12:08 | PRG ---
DATE OF SERVICE: 07/28/2018 SUBJECTIVE: This 67-year-old gentleman being seen for acute kidney injury. The patient denies any n ausea, vomiting, chest pain. PHYSICAL EXAMINATION: GENERAL: Patient is awake, alert. VITAL SIGNS: Afebrile, pulse 90, breathing at 16, blood pressure 120/89. OBJECTIVE: See above. Awake, alert, in no acute distress. GENERAL APPEARANCE AND MENTAL STATUS: Fair. HEAD/NECK: Normocephalic. Atraumatic. EYES: EOMI. No deformity. EARS: Clear. No ulcers. NOSE: Intact. No lesions. MOUTH: Clear. No discharge. THROAT: Clear. No exudate. LUNGS: Clear. No crackles. CARDIAC: S1, S2. No rub. ABDOMEN: Benign. BS+. GENITALIA/RECTUM: Sellers absent. BACK/EXTREMITIES: Edema 0+ Ulcer- NEUROLOGICAL: Alert and motor intact. SKIN: Rash- Bruise- LYMPHATICS: Edema- Ulcer- LABORATORY: Hemoglobin 16.1, potassium 5, creatinine 1.8. ASSESSMENT AND RECOMMENDATIONS: 1. Acute kidney injury with chronic kidney disease stage 3, stable. 2. Hypertension, stable. 3. Anemia, stable. 4. Hypercalcemia improved. The patient has a high PTH. The patient will need an endocrinology refe rral and to be sure that the patient does not have a malignant etiology of hypercalcemia. I would al so check a vitamin D level. 5. Medication based on glomerular filtration rate, would recommend decreasing the digoxin to every other day.
--- NOTE | 2018-07-28 12:13 | PRG ---
DATE OF SERVICE: 07/28/2018 SERVICE: Pulmonary Medicine. INTERVAL HISTORY: The patient is doing great from a respiratory standpoint. He is breathing much better. His mentation is much improved as well as his outlook. He did have severe neurologic derangement last night. Otherwise, there has been no interval change to his condition. PHYSICAL EXAMINATION: VITAL SIGNS: Afebrile, pulse 97, blood pressure 109/84, respirations 20, saturation 98% on 3 liters nasal cannula. GENERAL: The patient is awake, alert, in no apparent distress. LUNGS: Improving air entry. There are still some dependent crackles and prolonged expiratory phase. I do not hear any wheezing. HEART: Normal rate, regular. ABDOMEN: Soft, nontender, nondistended. Bowel sounds are positive. MUSCULOSKELETAL: No cyanosis or clubbing. There is 2-3+ pitting in the feet. GENITOURINARY: No Sellers. NEUROLOGIC: Grossly nonfocal. LABORATORY DATA: WBC 10.7, hemoglobin 16.1, platelets 185,000. Creatinine continues to trend downward to 1.86, BUN 39. Bicarbonate 29. Basic metabolic profile is otherwise unremarkable. BNP remains elevated at 3600 which is in historical high. ASSESSMENT: 1. Acute on chronic hypoxic respiratory failure. 2. Chronic hypercapnic respiratory failure. 3. Chronic obstructive pulmonary disease without current exacerbation. 4. Acute on chronic systolic heart failure. 5. Acute kidney injury secondary to cardiorenal syndrome, improving. 6. Obstructive sleep apnea, suspected. DISCUSSION AND PLAN: We will need to continue to diurese the patient to euvolemia. Pulmonary Critical Care will continue to follow along while the patient remains in the hospital. We will need to revisit setting up a polysomnogram in the outpatient setting. Previous attempt at setting up that study were not fruitful. [employer]
--- NOTE | 2018-07-28 12:40 | PDOC.PN ---
- Subjective Encounter Start Date: 07/28/18 Encounter Start Time: 12:38 Subjective: feels much better ,had slept better last night -: breathing much easier today - Objective Resuscitation Status: Resuscitation Status FULL:Full Resuscitation MAR Reviewed: Yes Vital Signs & Weight: Vital Signs (12 hours) Temp Pulse Pulse Resp BP BP Pulse Ox 07/28/18 12:00 97.3 F L 95 20 121/94 H 94 L 07/28/18 09:22 100 109/84 07/28/18 08:25 97 07/28/18 08:00 97.6 F 97 20 121/89 98 07/28/18 07:03 92 20 91 L 07/28/18 03:25 97.7 F 88 18 133/97 H 94 L Pulse Ox 07/28/18 12:00 07/28/18 09:22 94 L 07/28/18 08:25 07/28/18 08:00 07/28/18 07:03 07/28/18 03:25 Weight Weight 216 lb 14.4 oz I&O: 07/27/18 07/28/18 07/29/18 06:59 06:59 06:59 Intake Total 920 360 240 Output Total 300 1225 Balance 620 -865 240 Result Diagrams: 07/28/18 04:03 07/28/18 04:03 Additional Labs: Laboratory Tests 01/07/18 01/09/18 07/25/18 12:12 04:44 09:50 Creatinine 1.05 2.65 H B-Natriuretic Peptide 1650.2 H 07/26/18 07/26/18 07/27/18 06:33 14:11 16:24 Creatinine 2.39 H 2.27 H 2.15 H B-Natriuretic Peptide 07/28/18 07/28/18 04:03 04:03 Creatinine 1.86 H B-Natriuretic Peptide 3685.6 H Phys Exam - Physical Examination Constitutional: NAD HEENT: PERRLA, moist MMs, sclera anicteric, oral pharynx no lesions Neck: no nodes, no JVD, supple, full ROM Respiratory: no wheezing, no rales, no rhonchi, clear to auscultation bilateral Cardiovascular: RRR, no significant murmur, no rub Gastrointestinal: soft, non-tender, no distention, positive bowel sounds Musculoskeletal: edema present Neurological: non-focal, normal sensation, moves all 4 limbs Psychiatric: normal affect, A&O x 3 Skin: no rash Dx/Plan (1) Acute and chronic respiratory failure ([id number]) Code(s): J96.20 - ACUTE AND CHR RESP FAILURE, UNSP W HYPOXIA OR HYPERCAPNIA Status: Acute Comment: Mike Fluid Overload (2) Acute on chronic systolic CHF (congestive heart failure) Code(s): I50.23 - ACUTE ON CHRONIC SYSTOLIC (CONGESTIVE) HEART FAILURE Status : Acute (3) Delirium Code(s): R41.0 - DISORIENTATION, UNSPECIFIED Status: Acute Comment: Improved (4) ALONA (acute kidney injury) Code(s): N17.9 - ACUTE KIDNEY FAILURE, UNSPECIFIED Status: Acute (5) Chronic atrial fibrillation with RVR Code(s): I48.2 - CHRONIC ATRIAL FIBRILLATION Status: Acute Comment: Restarted Digoxin and Toprol.Cont Eliquis. (6) AICD (automatic cardioverter/defibrillator) present Code(s): Z95.810 - PRESENCE OF AUTOMATIC (IMPLANTABLE) CARDIAC DEFIBRILLATOR Status: Chronic (7) CAD (coronary artery disease) Code(s): I25.10 - ATHSCL HEART DISEASE OF [place] CORONARY ARTERY W/O ANG PCTRS Status: Chronic (8) Ischemic dilated cardiomyopathy Code(s): I25.5 - ISCHEMIC CARDIOMYOPATHY; I42.0 - DILATED CARDIOMYOPATHY Status: Chronic Comment: EF 10-15%.AICD in place (9) Left carotid artery stenosis Code(s): I65.22 - OCCLUSION AND STENOSIS OF LEFT CAROTID ARTERY Status: Chronic (10) End stage chronic obstructive pulmonary disease Code(s): J44.9 - CHRONIC OBSTRUCTIVE PULMONARY DISEASE, UNSPECIFIED Status: Chronic (11) PNA (pneumonia) Code(s): J18.9 - PNEUMONIA, UNSPECIFIED ORGANISM Status: Suspected (12) CVA (cerebral vascular accident) Code(s): I63.9 - CEREBRAL INFARCTION, UNSPECIFIED Status: Suspected Qualifiers: Laterality of affected vessel: right Comment: High dose ASA.increase Statin. neurology to see - Plan plan discussed w/ family, continue antibiotics, PT/OT, respiratory therapy, incentive spirometry, out of bed/ambulate, DVT proph w/SCDs Cont diuresis. will add 1 dose zaroxolyn.cont lasix.nebs,O2,steroids -: discussed DC plans. does not want rehab. will arrange HH -: discussed Home O2.will put new order as pt Out of oxygen @home -: cont home meds as below. PRN melatonin hs for agitation -: renal Fx improving-mike cardio renal.Monitor. PCT following * . Review of Systems - Review of Systems Constitutional: weakness, malaise. negative: fever, chills, sweats, other Respiratory: SOB with Excertion. negative: Cough, Dry, Shortness of Breath, Hemoptysis, Pleuritic Pain, Sputum, Wheezing Cardiovascular: edema. negative: chest pain, palpitations, orthopnea, paroxysmal nocturnal dyspnea, light headedness, other Gastrointestinal: negative: Nausea, Vomiting, Abdominal Pain, Diarrhea, Constipation, Melena, Hematochezia, Other Genitourinary: negative: Dysuria, Frequency, Incontinence, Hematuria, Retention , Other Musculoskeletal: negative: Neck Pain, Shoulder Pain, Arm Pain, Back Pain, Hand Pain, Leg Pain, Foot Pain, Other Neurological: negative: Weakness, Numbness, Incoordination, Change in Speech, Confusion, Seizures, Other - Medications/Allergies Allergies/Adverse Reactions: Allergies Allergy/AdvReac Type Severity Reaction Status Date / Time iodine Allergy Verified 07/25/18 16:59 meperidine Allergy Verified 07/25/18 16:59 Medications: Current Medications Acetaminophen (Tylenol) 650 mg PO Q4H PRN PRN Reason: Headache/Fever or Pain Hydrocodone Bitart/Acetaminophen (Kinney 10/325) 1 tab PO TIDPRN PRN PRN Reason: Moderate Pain (4-6) Last Admin: 07/27/18 10:13 Dose: 1 tab Al Hydroxide/Mg Hydroxide (Maalox) 30 ml PO Q6H PRN PRN Reason: Heartburn or Indigestion Albuterol/Ipratropium (Duoneb) 3 ml NEB Q2EW-DL [facility] Last Admin: 07/28/18 07:03 Dose: 3 ml Apixaban (Eliquis) 5 mg PO BID [facility] Last Admin: 07/28/18 08:25 Dose: 5 mg Aspirin (Ecotrin) 325 mg PO DAILY [facility] Last Admin: 07/28/18 08:28 Dose: 325 mg Atorvastatin Calcium (Lipitor) 20 mg PO HS [facility] Last Admin: 07/27/18 21:22 Dose: 20 mg Bisacodyl (Dulcolax) 10 mg PO DAILYPRN PRN PRN Reason: Constipation Calcium Carbonate (Tums) 1,000 mg PO Q4H PRN PRN Reason: Heartburn or Indigestion Clonidine (Catapres) 0.1 mg PO Q4H PRN PRN Reason: Systolic BP > 160 Coenzyme Q10 (Coenzyme Q10) 100 mg PO [facility] Last Admin: 07/28/18 08:25 Dose: 100 mg Digoxin (Lanoxin) 0.125 mg PO [facility] Last Admin: 07/28/18 08:25 Dose: 0.125 mg Famotidine (Pepcid) 20 mg PO 0900 [facility] Last Admin: 07/28/18 08:28 Dose: 20 mg Furosemide (Lasix) 40 mg SLOW IVP 0600,1400 [facility] Last Admin: 07/28/18 05:50 Dose: 40 mg Guaifenesin (Robitussin Sf) 200 mg PO Q4H PRN PRN Reason: Cough Hydralazine HCl (Apresoline) 10 mg SLOW IVP Q4H PRN PRN Reason: Systolic BP > 170 Amiodarone HCl 450 mg/Miscellaneous Medication 1 each/ Dextrose/Water 259 mls @ 0 mls/hr IVPB INF PRN; Protocol PRN Reason: IF HR SUSTAINS > 120 Lactulose (Lactulose) 20 gm PO DAILYPRN PRN PRN Reason: Constipation Last Admin: 07/26/18 09:18 Dose: 20 gm Loratadine (Claritin) 10 mg PO DAILYPRN PRN PRN Reason: Sinus Symptoms Melatonin (Melatonin) 6 mg PO HS PRN PRN Reason: Insomnia Metoprolol Succinate (Toprol Xl) 25 mg PO [facility] Last Admin: 07/28/18 08:28 Dose: 25 mg Nitroglycerin (Nitrostat) 0.4 mg SL Q5MIN PRN PRN Reason: Chest Pain Ondansetron HCl (Zofran) 4 mg IVP Q6H PRN PRN Reason: Nausea/Vomiting Last Admin: 07/27/18 21:21 Dose: 4 mg Senna (Senokot) 2 tab PO HSPRN PRN PRN Reason: Constipation Sodium Chloride (Flush - Normal Saline) 10 ml IVF Q12HR [facility] Last Admin: 07/28/18 08:28 Dose: 10 ml Sodium Chloride (Flush - Normal Saline) 10 ml IVF PRN PRN PRN Reason: Saline Flush Temazepam (Restoril) 30 mg PO HS [facility] Last Admin: 07/27/18 21:22 Dose: 30 mg
--- NOTE | 2018-07-28 20:05 | PDOC.CTH ---
Cardiology Progress Note - Subjective Breathing better than he usually does at home. Not needing OI2 at rest, but does need it with any exertion. - Objective Vital Signs Temp Pulse Pulse Resp BP BP Pulse Ox 07/28/18 18:34 98 20 86 L 07/28/18 15:54 98 F 99 20 125/91 H 90 L 07/28/18 14:05 87 20 92 L 07/28/18 12:00 97.3 F L 95 20 121/94 H 94 L 07/28/18 09:22 100 109/84 07/28/18 08:25 97 Pulse Ox 07/28/18 18:34 07/28/18 15:54 07/28/18 14:05 07/28/18 12:00 07/28/18 09:22 94 L 07/28/18 08:25 Weight 216 lb 14.4 oz 07/27/18 07/28/18 07/29/18 06:59 06:59 06:59 Intake Total 920 360 480 Output Total 300 1225 400 Balance 620 -865 80 - Physical Examination General/Neuro: alert & oriented x3, NAD Neck: no JVD present Lungs: unlabored respirations, other: (Reduced breath sounds bilat. ) Heart: RRR Abdomen: NT/ND Extremities: other: (No edema.) - Telemetry Telemetry Rhythm: Afib HR 90's. - Labs Result Diagrams: 07/28/18 04:03 07/28/18 04:03 Troponin/CKMB CK-MB (CK-2) 3.4 ng/mL (0-6.6) 07/25/18 09:50 Troponin I 0.110 ng/mL (< 0.028) H 07/25/18 15:56 - Assessment/Plan 1. Acute on chronic systolic heart failure. 2. Hx of CVA 3. Non ischemic CM 4. Presence of an AICD. 5. HTN 6. Chronic afib, rate controlled. 7. AMS 8. ALONA on CKD, cardiorenal most likely. PLAN: - Unlikely that his presentation is related to an acute CVA. - Continue IV lasix today. Switch to PO tomorrow. - Continue Eliquis for CVA prophylaxis. - Will follow. - Home in the next 24 to 48 hrs if he remains stable.
[2018-07-28] MEDS: Atorvastatin Calcium 20 MG TAB PO SCH (20:10)
[2018-07-28] MEDS: Temazepam 15 MG CAP PO SCH (20:10)
[2018-07-29] MEDS: Furosemide 40 MG/4 ML VIAL SLOW IVP SCH ×2 (06:26→13:43)
[2018-07-29] MEDS: HYDROcodone/Acetaminophen 10/325 mg Tablet PO PRN ×2 (07:50→20:54)
[2018-07-29 08:01] LABS: Anion Gap 13 mmol/L (10-20); BUN (Urea Nitrogen) 42 mg/dL (8.4-25.7); Calc. Creatinine Clearance 55 mL/min (70-130); Calcium 10.2 mg/dL (7.8-10.44); Carbon Dioxide 34 mmol/L (23-31); Chloride 92 mmol/L (98-107); Estimated GFR-MDRD 39; Glucose 137 mg/dL (80-115); Potassium 4.2 mmol/L (3.5-5.1); Sodium 135 mmol/L (136-145)
[2018-07-29] MEDS: Ubidecarenone 50 MG CAP PO SCH (10:35)
[2018-07-29] MEDS: Aspirin 325 mg Enteric Coated Tablet PO SCH (10:35)
[2018-07-29] MEDS: Famotidine 20 MG TAB PO SCH (10:36)
[2018-07-29] MEDS: Apixaban 5 MG TAB PO SCH ×2 (10:36→20:59)
[2018-07-29] MEDS: Digoxin 0.125 MG TAB PO SCH (10:41)
--- NOTE | 2018-07-29 10:48 | PDOC.PN ---
- Subjective Encounter Start Date: 07/29/18 (f/u resp failure) Encounter Start Time: 10:45 Subjective: Pt reports he is breathing well. Denies any complaints or concerns. -: Was able to ambulate with PT this morning and not requiring -: oxygen at rest. - Objective Resuscitation Status: Resuscitation Status FULL:Full Resuscitation Vital Signs & Weight: Vital Signs (12 hours) Temp Pulse Resp BP BP Pulse Ox 07/29/18 10:41 94 07/29/18 07:32 97.8 F 94 20 117/81 90 L 07/29/18 07:20 97.8 F 94 20 91 L 07/29/18 06:43 90 16 07/29/18 03:42 98.6 F 96 18 106/79 91 L 07/29/18 00:37 98.3 F 94 18 120/68 91 L Weight Weight 215 lb 1.6 oz I&O: 07/28/18 07/29/18 07/30/18 06:59 06:59 06:59 Intake Total 360 1240 300 Output Total 1225 1350 Balance -865 -110 300 Result Diagrams: 07/28/18 04:03 07/29/18 04:22 EKG Reviewed by me: Yes (A fib with aberrancy 70-100's, intermittent v paced) Phys Exam - Physical Examination Constitutional: NAD Respiratory: no wheezing, no rhonchi distant breath sounds decreased at bases with fine rales Cardiovascular: no significant murmur, irregular Gastrointestinal: soft, no distention, positive bowel sounds 3+ edema RLE, 2+ edema LLE; 2+ dp pulses Neurological: non-focal, moves all 4 limbs Psychiatric: A&O x 3 Dx/Plan (1) ALONA (acute kidney injury) Code(s): N17.9 - ACUTE KIDNEY FAILURE, UNSPECIFIED Status: Acute (2) Chronic atrial fibrillation with RVR Code(s): I48.2 - CHRONIC ATRIAL FIBRILLATION Status: Chronic Comment: Restarted Digoxin and Toprol.Cont Eliquis. (3) End stage chronic obstructive pulmonary disease Code(s): J44.9 - CHRONIC OBSTRUCTIVE PULMONARY DISEASE, UNSPECIFIED Status: Chronic (4) Left carotid artery stenosis Code(s): I65.22 - OCCLUSION AND STENOSIS OF LEFT CAROTID ARTERY Status: Chronic (5) Acute and chronic respiratory failure ([id number]) Code(s): J96.20 - ACUTE AND CHR RESP FAILURE, UNSP W HYPOXIA OR HYPERCAPNIA Status: Acute Comment: Cedric Fluid Overload (6) Acute on chronic systolic CHF (congestive heart failure) Code(s): I50.23 - ACUTE ON CHRONIC SYSTOLIC (CONGESTIVE) HEART FAILURE Status : Acute (7) AICD (automatic cardioverter/defibrillator) present Code(s): Z95.810 - PRESENCE OF AUTOMATIC (IMPLANTABLE) CARDIAC DEFIBRILLATOR Status: Chronic (8) CAD (coronary artery disease) Code(s): I25.10 - ATHSCL HEART DISEASE OF [place] CORONARY ARTERY W/O ANG PCTRS Status: Chronic (9) Ischemic dilated cardiomyopathy Code(s): I25.5 - ISCHEMIC CARDIOMYOPATHY; I42.0 - DILATED CARDIOMYOPATHY Status: Chronic Comment: EF 10-15%.AICD in place - Plan * Appreciate multiple specialists involved in care: * Nephro - appreciate rec to change digoxin to q48 - order placed * Pulm - to follow as inpatient and arrange for polysomnography as outpatient * Cards- IV diuresis, to change to PO today * Given the asymmetry of edema - will ultrasound his RLE to rule out DVT * * dvt and stroke prophy - eliquis * gi prophy - not indicated * code status full * * reviewed plan of care with patient, no questions or further needs at end of eval.
--- NOTE | 2018-07-29 11:33 | PRG ---
DATE OF SERVICE: 07/29/2018 SUBJECTIVE: A 67-year-old gentleman being seen for acute kidney injury. The patient denies any naus ea, vomiting, or chest pain. PHYSICAL EXAMINATION: GENERAL: Patient is awake, alert. VITAL SIGNS: Afebrile, pulse 75, breathing at 16, blood pressure 170/81. GENERAL APPEARANCE AND MENTAL STATUS: Fair. HEAD/NECK: Normocephalic. Atraumatic. EYES: EOMI. No deformity. EARS: Clear. No ulcers. NOSE: Intact. No lesions. MOUTH: Clear. No discharge. THROAT: Clear. No exudate. LUNGS: Clear. No crackles. CARDIAC: S1, S2. No rub. ABDOMEN: Benign. BS+. GENITALIA/RECTUM: Sellers absent. BACK/EXTREMITIES: Edema 0+ Ulcer-. NEUROLOGICAL: Alert and motor intact. SKIN: Rash- Bruise- LYMPHATICS: Edema- Ulcer-. LABORATORY DATA: Show hemoglobin 16, creatinine 1.7. ASSESSMENT AND PLAN: 1. Acute kidney injury, improved. 2. Hypertension, stable. 3. Hyperkalemia, stable. 4. Medications based on glomerular filtration rate are appropriate. 5. Hypercalcemia, improved. I will sign off on this patient. Please reconsult as needed.
--- NOTE | 2018-07-29 12:12 | ULT ---
RIGHT LOWER EXTREMITY VENOUS DUPLEX EXAM: Date: 07/29/18 HISTORY: Right lower extremity edema. TECHNIQUE/FINDINGS: The patient would not allow the technologist to complete the examination. Exam was begun with evaluat ion of the common femoral vein, which did show compression, but the patient told the technologist to leave the room and the remainder of the exam was not performed. IMPRESSION: Extremely limited right lower extremity exam. Only the common femoral vein was visualized and it does compression and shows no thrombus. Patient refused the remainder of the exam. POS: SVETLANA
[2018-07-29] MEDS: Ondansetron HCl/PF 4 MG/2 ML Vial IVP PRN (13:49)
--- NOTE | 2018-07-29 18:34 | PDOC.CTH ---
Cardiology Progress Note - Subjective He is feeling better than he has in a long time. - Objective Vital Signs Temp Pulse Pulse Pulse Resp BP BP 07/29/18 18:22 85 16 07/29/18 15:10 97.5 F L 78 20 07/29/18 12:27 90 16 07/29/18 11:11 98.6 F 85 18 07/29/18 10:41 94 07/29/18 09:43 109 H 97 112/82 111/82 07/29/18 07:32 97.8 F 94 20 07/29/18 07:20 97.8 F 94 20 07/29/18 06:43 90 16 BP Pulse Ox Pulse Ox Pulse Ox Pulse Ox 07/29/18 18:22 91 L 07/29/18 15:10 98/72 89 L 07/29/18 12:27 07/29/18 11:11 122/86 95 07/29/18 10:41 07/29/18 09:43 84 L 95 93 L 07/29/18 07:32 117/81 90 L 07/29/18 07:20 91 L 07/29/18 06:43 Weight 215 lb 1.6 oz 07/28/18 07/29/18 07/30/18 06:59 06:59 06:59 Intake Total 360 1240 900 Output Total 1225 1350 2150 Balance -865 -110 -1250 - Physical Examination General/Neuro: alert & oriented x3, NAD Neck: no JVD present Lungs: CTA, unlabored respirations Heart: RRR Abdomen: NT/ND Extremities: + edema B (1+) - Telemetry Telemetry Rhythm: Afib. - Labs Result Diagrams: 07/28/18 04:03 07/29/18 04:22 Troponin/CKMB CK-MB (CK-2) 3.4 ng/mL (0-6.6) 07/25/18 09:50 Troponin I 0.110 ng/mL (< 0.028) H 07/25/18 15:56 - Assessment/Plan 1. Acute on chronic systolic heart failure. 2. Hx of CVA 3. Non ischemic CM 4. Presence of an AICD. 5. HTN 6. Chronic afib, rate controlled. 7. AMS 8. ALONA on CKD, cardiorenal most likely. Improved. PLAN: - Unlikely that his presentation is related to an acute CVA. - Continue IV lasix today. Switch to PO tomorrow. - Continue Eliquis for CVA prophylaxis. - Home tomorrow if remains stable.
--- NOTE | 2018-07-29 18:44 | PRG ---
DATE OF SERVICE: 07/29/2018 SUBJECTIVE: Ralf is doing reasonably well. He has no new complaints. OBJECTIVE: VITAL SIGNS: He is afebrile, heart rate 70, respiratory 20, oximetry is 91 on room air, blood pressu re 98/72. LUNGS: Distant, clear. HEART: Regular rhythm. ABDOMEN: Soft. IMPRESSION: 1. Acute chronic systolic heart failure. 2. Status post AICD. 3. Nonischemic cardiomyopathy. 4. History of cerebrovascular accident. 5. History of atrial fibrillation. 6. Chronic obstructive pulmonary disease. 7. Suspected sleep apnea. PLAN: Continue current care. He will follow up with Dr. Aguilar after his discharge. He should hav e a sleep study at some point down the road. He is anxious to get out of the hospital, wants to star t playing golf again once it cools off.
[2018-07-29] MEDS: Temazepam 15 MG CAP PO SCH (20:54)
[2018-07-29] MEDS: Atorvastatin Calcium 20 MG TAB PO SCH (20:58)
[2018-07-29] MEDS ORDERED: Ondansetron ODT 4 MG TAB PO PRN (21:28)
[2018-07-30 04:42] LABS: BUN (Urea Nitrogen) 42 mg/dL (8.4-25.7); Calc. Creatinine Clearance 54 mL/min (70-130); Calcium 9.9 mg/dL (7.8-10.44); Estimated GFR-MDRD 41; Glucose 119 mg/dL (80-115); Hemoglobin 15.4 g/dL (14.0-18.0); Platelet Count 205 thou/uL (130-400)
[2018-07-30 04:53] LABS: Anion Gap 16 mmol/L (10-20); Carbon Dioxide 35 mmol/L (23-31); Chloride 88 mmol/L (98-107); Potassium 3.8 mmol/L (3.5-5.1); Sodium 135 mmol/L (136-145)
[2018-07-30] MEDS: HYDROcodone/Acetaminophen 10/325 mg Tablet PO PRN ×2 (04:53→13:46)
[2018-07-30] MEDS: Furosemide 40 MG TAB PO SCH ×2 (07:05→13:47)
[2018-07-30] MEDS: Ubidecarenone 50 MG CAP PO SCH (08:52)
[2018-07-30] MEDS: Aspirin 325 mg Enteric Coated Tablet PO SCH (08:52)
[2018-07-30] MEDS: Famotidine 20 MG TAB PO SCH (08:52)
[2018-07-30] MEDS: Apixaban 5 MG TAB PO SCH (08:53)
[2018-07-30] MEDS ORDERED: Digoxin 0.125 MG TAB PO SCH (09:00)
[2018-07-30 15:18] VITALS: BP 128/88; TEMP 97.5
--- NOTE | 2018-07-30 17:37 | PDOC.CTH ---
Cardiology Progress Note - Subjective Doing much better. Breathing better than he has in a long time. - Objective Vital Signs Temp Pulse Resp BP Pulse Ox 07/30/18 15:17 97.5 F L 114 H 20 128/88 93 L 07/30/18 12:01 90 16 07/30/18 11:17 98.2 F 94 20 106/79 93 L 07/30/18 08:52 115 H 07/30/18 08:42 97.7 F 90 20 92 L 07/30/18 07:20 97.7 F 115 H 20 105/79 92 L 07/30/18 06:18 100 14 Weight 200 lb 9.6 oz 07/29/18 07/30/18 07/31/18 06:59 06:59 06:59 Intake Total 1240 1380 Output Total 1350 3425 1260 Balance -110 -2045 -1260 - Physical Examination General/Neuro: alert & oriented x3, NAD Neck: no JVD present Lungs: unlabored respirations Heart: other: (Irregular) Abdomen: NT/ND Extremities: + edema B (trace) - Telemetry Telemetry Rhythm: Afib HR 90-110 - Labs Result Diagrams: 07/30/18 03:31 07/30/18 03:31 Troponin/CKMB CK-MB (CK-2) 3.4 ng/mL (0-6.6) 07/25/18 09:50 Troponin I 0.110 ng/mL (< 0.028) H 07/25/18 15:56 - Assessment/Plan 1. Acute on chronic systolic heart failure. 2. Hx of CVA 3. Non ischemic CM 4. Presence of an AICD. 5. HTN 6. Chronic afib, rate controlled. 7. AMS 8. [place] on CKD, cardiorenal most likely. Continues to improve. PLAN: - Unlikely that his presentation is related to an acute CVA. - PO Lasix. - Continue Eliquis for CVA prophylaxis. - May discharge home today.
--- NOTE | 2018-07-30 18:59 | DIS ---
DATE OF ADMISSION: 07/25/2018 DATE OF DISCHARGE: 07/30/2018 CONSULTANTS: 1. Dr. Duarte of Pulmonology. 2. Dr. Ulrich of Cardiology. 3. Dr. Pena of Nephrology. 4. Dr. Basilia Brito of Neurology. MEDICATIONS: Reconciled at discharge. DISCONTINUED MEDICATIONS: 1. Losartan, due to acute kidney injury secondary to cardiorenal syndrome. 2. Torsemide. This was replaced with furosemide. NEW MEDICATIONS: Lasix 40 mg twice daily. CHANGED MEDICATIONS: Digoxin changed to 0.125 mg every other day for renal dosing. CONTINUED MEDICATIONS: 1. Apixaban 5 mg b.i.d. 2. Aspirin 81 mg daily. 3. Symbicort 2 puffs b.i.d. of the 160/4.5. 4. Hollis 10/325 one p.o. t.i.d. p.r.n. pain. 5. Atrovent nebulizer t.i.d. 6. Toprol-XL 25 mg daily. 7. Zofran 4 mg q.6 hours p.r.n. 8. Pravastatin 40 mg at bedtime. 9. Temazepam 30 mg at bedtime. 10. Coenzyme Q10 one tablet daily. FOLLOWUP: 1. Follow up with Dr. Ulrich within a week to reevaluate your heart and volume status. 2. Follow up with Dr. Pena at the end of this week, please have your blood drawn on Tuesday, the results will be faxed to Dr. Pena for evaluation of your kidney function. 3. Dr. Aguilar within 1-2 weeks for evaluation and consideration of sleep study. PENDING TEST RESULTS: Vitamin D levels FINAL DIAGNOSES: 1. Acute decompensated systolic heart failure secondary to acute decompensated systolic heart failure with ejection fraction of 10%-15%. (Stage C heart failure) 2. Chronic respiratory failure on home oxygen. 3. Chronic obstructive pulmonary disease and chronic bronchitis. 4. Hyperkalemia, resolved. SECONDARY DIAGNOSES: 1. Chronic atrial fibrillation on full anticoagulation. 2. Coronary artery disease. 3. Hyperkalemia, mild. 4. Anemia, stable. 5. Hypercalcemia, resolved. 6. Acute kidney injury secondary to cardiorenal syndrome, improved. 7. Remote infarctions of the right cerebellar hemisphere and tiny lacunar infarction in the right lentiform nucleus of indeterminate age. 8. Ischemic cardiomyopathy. HISTORY OF PRESENT ILLNESS: Mr. Arambula is a 67-year-old male with the above medical problems who presented to the emergency room with the complaint of dizziness and altered mental status. For about a week, he had been noticing that the dizziness as well as forgetting things easily. In the emergency room, he was found to be tachycardic at a rate 119, and hospitalist called for admission. HOSPITAL COURSE: The patient was evaluated for a stroke rule out due to mental status changes. He was started on full dose aspirin, Neurology was consulted and noncontrast CT of the brain was performed. This evaluation was negative, and no further evaluation was recommended. Consultation was provided for the acute kidney injury secondary to cardiorenal syndrome by Dr. Pena. The patient was gently hydrated followed by a diuresis. His potassium was mildly elevated on admission, which worsened and he was treated with Kayexalate and Lasix. His potassium has been normal over the past 48 hours. The patient continued to be diuresed through the direction of Cardiology. He has tolerated this well, his breathing is improved, and his endurance exercise has improved as well. There were times that he was off of oxygen while here and maintained sats around 90%-92%. He is instructed to wear oxygen as needed while at home. Consultation was provided by Pulmonology and pt was treated with steroids and nebulizer therapy while here. As the symptoms responded to IV diuresis, no steroids are needed at discharge. The patient is overall feeling well, his lower extremity edema is improved, he is breathing well and he does meet criteria for discharge to home. He will follow up closely with Dr. Pena and Dr. Ulrich for management of stage C systolic heart failure as well as cardiorenal syndrome. Of note, patient has asymmetric edema with the right leg more significant than the left. An ultrasound was ordered and the patient only tolerated small portion of the exam secondary to reported pain. Given that he is already on full anticoagulation, further imaging was not considered necessary. PHYSICAL EXAMINATION: On day of discharge, VITAL SIGNS: Blood pressure 106/79, temperature 98.2, pulse 94, respirations 20 , saturations 93% on 2 liters. GENERAL: Awake, alert, responsive, in no apparent distress, able to speak in regular sentences. LUNGS: He has some faint basilar rales. Good air movement, no audible wheezing. HEART: Normal S1, S2, regular rate and rhythm, no audible murmurs. ABDOMEN: Soft with present bowel sounds. Nontender, nondistended. EXTREMITIES: 2+ edema on the right lower extremity, 1+ edema on the left lower extremity. CARPENTER FINDINGS AND TEST RESULTS: On admission, his renal panel 133, 5.2, 97, 26, 38, 2.65, 139. Calcium was 11.8. LFTs: AST 30, ALT 20, alkaline phosphatase 366, total protein 7.3, albumin 3.3. His peak potassium was 6.4 on 07/27/2018. Renal panel today 135, 3.8, 88, 35, 42, 1.67, 119. BNP on 07/28/2108 was 3685. Parathyroid hormone 34.7. Triglycerides 85, cholesterol 62, LDL 18, HDL 27. Chest x-ray on 07/25/2018, marked cardiomegaly, moderate effusions, mild edema left basilar opacity may reflect underlying consolidation superimposed upon edema and effusion. CT of the brain without contrast, punctate tiny lacunar infarction of indeterminate age in the right lentiform nucleus; chronic small vessel ischemic changes and cerebral volume loss; remote infarction of the right cerebellar hemisphere; sinus disease in the left maxillary antrum. Carotid Doppler on 07/25/2018, nonvisualization of the flow within the left internal carotid artery, evidence of complete or near complete stenosis with recommendation for CT arteriography. Abdomen and pelvis CT on 07/27/2018, marked cardiomegaly with small pericardial effusion; small bilateral pleural effusions; lower lobe edema; nodular contour of the liver can be seen with cirrhosis; nonobstructive renal calculi punctate of the right kidney; prior left nephrectomy without abnormal nodularity within the left nephrectomy bed; no significant size increase of the aortic aneurysmal dilatation with internal aortoiliac stent. Chest x-ray on 07/27/2018, unchanged. Ultrasound of the lower extremity extremely limited, only the common femoral vein was visualized and does compress and shows no thrombus. Remaining exam refused. DIET: Low sodium, heart healthy with fluid restriction of 1.5 liters per day. ACTIVITY: As tolerated. Reviewed with the patient this hospitalization, the importance of followup, the return for care precautions. He demonstrates understanding. Total time coordinating discharge is 40 minutes. JACKIE
[2018-07-31] MEDS ORDERED: Potassium Chloride 20 MEQ TAB PO SCH (08:00)
== END 2018-07-30 15:55 | disposition home or self-care (01) | DRG 291 ==
LOC: ERS 09:19 → 2SE 14:36
PROVIDERS: ADMIT Internal Medicine; ATTEND Internal Medicine
DX: I11.0 Hypertensive heart disease with heart failure (principal); J96.22 Acute and chronic respiratory failure with hypercapnia; J96.21 Acute and chronic respiratory failure with hypoxia; N17.9 Acute kidney failure, unspecified; I50.23 Acute on chronic systolic (congestive) heart failure; I25.5 Ischemic cardiomyopathy; J44.9 Chronic obstructive pulmonary disease, unspecified; Z99.81 Dependence on supplemental oxygen; I48.2 Chronic atrial fibrillation; R79.89 Other specified abnormal findings of blood chemistry; E86.0 Dehydration; E87.5 Hyperkalemia; E83.52 Hypercalcemia; I65.22 Occlusion and stenosis of left carotid artery; R41.0 Disorientation, unspecified; N18.9 Chronic kidney disease, unspecified; Z79.01 Long term (current) use of anticoagulants; Z79.82 Long term (current) use of aspirin; Z86.73 Personal history of transient ischemic attack (TIA), and cerebral infarction without residual deficits; Z96.653 Presence of artificial knee joint, bilateral; Z95.810 Presence of automatic (implantable) cardiac defibrillator; Z90.5 Acquired absence of kidney
CPT/HCPCS: 36415; 70450; 71045; 71046; 74176; 80048; 80053; 80061; 81003; 81015; 82140; 82306; 82553; 82805; 83880; 83970; 84484; 85014; 85018; 85025; 85049; 93005; 93880; 94640; A4216; G8978-GP-CL; G8979-GP-CJ; G8987-GO-CJ; G8988-GO-CI; J1160; J1644; J1940; J1956; J2405; J7506; J7620; Q0162

== ENCOUNTER 2019-01-01 12:16 | Inpatient (IN) | payer MEDICARE ==
--- NOTE | 2019-01-01 13:09 | RAD ---
CHEST 1 VIEW: HISTORY: Weakness and shortness of breath. COMPARISON: 07/27/2018 exam. FINDINGS: Heart size is markedly enlarged with a pacemaker present. There is some blunting to the right costop hrenic angle similar to the previous examination. No new process seen. IMPRESSION: Marked cardiomegaly. Stable exam. POS: [facility]
[2019-01-01 13:24] LABS: ALT (SGPT) 12 U/L (8-55); AST (SGOT) 39 U/L (5-34); Albumin 3.1 g/dL (3.4-4.8); Alkaline Phosphatase 302 U/L (40-150); Anion Gap 14 mmol/L (10-20); BUN (Urea Nitrogen) 23 mg/dL (8.4-25.7); Bilirubin, Total 3.4 mg/dL (0.2-1.2); Calc. Creatinine Clearance 0 mL/min (70-130); Calcium 9.3 mg/dL (7.8-10.44); Carbon Dioxide 33 mmol/L (23-31); Chloride 89 mmol/L (98-107); Estimated GFR-MDRD 55; Globulin 4.3 g/dL (2.4-3.5); Glucose 189 mg/dL (80-115); Potassium 4.1 mmol/L (3.5-5.1); Protein, Total 7.4 g/dL (5.8-8.1); Sodium 132 mmol/L (136-145)
[2019-01-01 13:25] LABS: Hemoglobin 15.9 g/dL (14.0-18.0); Mean Corpuscular HGB CONC 30.4 g/dL (32.0-36.0); Mean Corpuscular Hemoglobin 29.6 pg (27.0-31.0); Mean Corpuscular Volume 97.3 fL (78.0-98.0); Mean Platelet Volume 9.7 fL (7.4-10.4); Platelet Count 177 thou/uL (130-400); RBC Distribution Width 18.6 % (11.5-14.5); Red Blood Cell (RBC) Count 5.37 mill/uL (4.70-6.10); White Blood Cell (WBC) Count 10.2 thou/uL (4.8-10.8)
[2019-01-01 13:41] LABS: CKMB 1.7 ng/mL (0-6.6)
[2019-01-01 13:45] LABS: Band 6 % (5-11); Eosinophils 5 % (0-10); Lymphocytes 20 % (21-51); MDiff Complete? YES; Macrocytosis SLIGHT = 6-15 cells (100X) (0-5/hpf); Monocytes 5 % (0-10); Neutrophil 63 % (42-75); Platelet Morphology Comment Appears Adequate; Reactive Lymphocytes 1 % (0-10); Target Cells MODERATE= 6-15 cells (100X) (0-1/hpf)
[2019-01-01] MEDS ORDERED: Aspirin 325 MG TAB ONE (13:47)
[2019-01-01] MEDS ORDERED: Furosemide 40 MG/4 ML VIAL ONE (13:47)
[2019-01-01] MEDS ORDERED: Nitroglycerin 2% Ointment 1 INCH/1 GM Packet ONE (13:47)
[2019-01-01] MEDS ORDERED: traMADol HCl 50 MG TAB ONE ×2 (14:42→15:18)
--- NOTE | 2019-01-01 16:10 | HP ---
PRIMARY CARE PHYSICIAN: Castillo David MD CHIEF COMPLAINT: Shortness of breath. HISTORY OF PRESENT ILLNESS: Mr. Arambula is a very pleasant 68-year-old gentleman, who has a history of chronic systolic heart failure with an ejection fraction of 10% to 15%. He also has COPD as well as chronic atrial fibrillation. He was last admitted to our facility back in July of 2018. At that time, he was admitted with altered mental status as well as an exacerbation of his heart failure. He was treated and discharged home and says he was doing so-so until a couple of weeks ago when he started getting short of breath. He says it has been a progressive increase in his shortness of breath over the last few weeks and he says he got to the point where he was having to use more and more pillows at night in order to breathe. He says he has been "using a barrage of pillows." He also says he wakes up at least 2 to 3 times at night with shortness of breath and the night before last was the first time he had to sleep in a recliner in order to breathe. He also notes increasing lower extremity edema. He denies any chest pain, however, and he also denies feeling dizzy or lightheaded. He denies any palpitations. He says that his diet has been good. He denies eating any salty foods or any processed foods and he says he has been compliant with his medications. However, as a result of his shortness of breath, he came to the emergency room today, where he was evaluated and found to be volume overloaded. His natriuretic peptide was elevated at 3000 and several months ago, it was 1600. He had a chest x-ray, which showed increased pulmonary vascular markings as well as cardiomegaly and he is being admitted for acute on chronic exacerbation of CHF. The patient says his normal weight is about 175 pounds and he believes that his weight now is around 189, but he has weighted himself recently. Other complaints include occasional nausea and he takes nausea medicine for that. This is not new. He also says that he typically has some cough with some phlegm, which is like a thick mucus. Otherwise, no other complaints. REVIEW OF SYSTEMS: All systems were reviewed and are negative except for that mentioned in the history of present illness. PAST MEDICAL HISTORY: Significant for chronic systolic heart failure with an ejection fraction of 10% to 15%, chronic respiratory failure with COPD, atrial fibrillation, and renal cell carcinoma. He denies a history of coronary artery disease. PAST SURGICAL HISTORY: He has had an AICD placed. He has had spinal fusion, a crush injury to the right index finger, wisdom teeth removed. He has had a left nephrectomy as well as bilateral knee replacement surgery. ALLERGIES: TO DEMEROL, IODINE, AND MEPERIDINE. FAMILY HISTORY: No significant family history other than grandmother had leukemia and heart disease, but she in her 80s. SOCIAL HISTORY: He is . He has 3 children. He is a former smoker. He used to smoke marijuana as well as several cigarettes a day. He smoked for about 30 years, but quit 5 or 6 years ago. Also used to drink socially and he quit that as well 5 to 6 years ago. His is his surrogate decision maker and he would like to be a full code. CURRENT MEDICATIONS: Include; 1. Eliquis 2.5 mg twice daily. 2. Metoprolol extended release 25 mg daily. 3. Temazepam 30 mg daily. 4. Lasix 40 mg twice a day. 5. Zofran 4 mg q.6 as needed. 6. Digoxin 0.125 mg daily. 7. DuoNeb p.r.n. PHYSICAL EXAMINATION: GENERAL: He is alert and oriented. He appears to be in some mild distress due to shortness of breath. He is well developed, well nourished. He is chronically ill in appearance. VITAL SIGNS: His blood pressure was 128/93, his heart rate originally was around 140, respiratory rate of 20, and temperature is 98.3. HEENT: His pupils are equal, round, and reactive. Extraocular muscles are intact. His sclerae are anicteric. Throat is mildly erythematous, but there are no exudates. Mucous membranes are a bit dry actually. NECK: He did have some mild jugular venous distention. There is no adenopathy. There are no bruits. LUNGS: He has some basilar rales bilaterally, but the left was greater than the right. CARDIOVASCULAR: His heart tones were distant, actually difficult to hear. His heart rate was irregular, slightly rapid. Did not appreciate any murmurs or clicks. No rubs. ABDOMEN: Obese. It is soft, nontender, and nondistended. There is positive bowel sounds. However, he was not able to lay flat for a full exam. EXTREMITIES: He has 2+ pitting edema bilaterally in his lower extremities as well as some edema in his upper extremities as well. There was no calf tenderness. NEUROLOGIC: His cranial nerves II through XII are grossly intact. His muscle strength is 5/5 in his upper and lower extremities. SKIN AND INTEGUMENT: He did have some mild erythema, but no significant skin breakdown. No rash. LABORATORY DATA AND X-RAY: On his chest x-ray, this is by my reading, he had cardiomegaly as well as he had almost a complete obliteration of the left hemidiaphragm, possibly indicating a pleural effusion. It looks like he had a small right pleural effusion as well. AICD was in place and he had increased pulmonary vascular markings. On his EKG, it is the atrial fibrillation, the heart rate was approximately 130. He had Q-wave in II, III, and aVF as well as poor R-wave progression in V1 through V3. His sodium was 132, potassium 4.1, chloride is 89, CO2 is 33, BUN of 23, creatinine 1.3, and glucose is 189. Total bilirubin was 3.4. His AST was 39, ALT is 12, and alkaline phosphatase was 302. His natriuretic peptide was 3144. White blood cell count 10.2, hemoglobin 15.9, hematocrit is 52.3, and platelet count was 177. ASSESSMENT AND PLAN: This is a pleasant 68-year-old gentleman, who presents to the emergency room with acute on chronic systolic heart failure. He is also in atrial fibrillation with rapid ventricular response. It is likely that the congestive heart failure exacerbation is a result of uncontrolled heart rate due to the atrial fibrillation. He will be admitted to telemetry. Started on IV Lasix for diuresis. We will continue his home medications. With regard to heart failure, check his digoxin level and consult Cardiology for further recommendation. We will also need to interrogate his defibrillator. 1. Atrial fibrillation. As above, we will check his digoxin level. If his heart rate is sustained above 100, then place him on Cardizem drip as his blood pressure tolerates and continue Eliquis for stroke prevention. 2. Hypertension. We will continue his usual home medications as well as p.r.n. medications for elevated blood pressure as needed. It appears as if his last echo was in July. It is close to being 6 months ago. At that time, his ejection fraction was extremely low around 10% to 15%. We may go ahead and repeat his echo as well. 3. Chronic obstructive pulmonary disease. We will place him on DuoNebs as needed. Further recommendations are to follow. Job ID: [id number]
[2019-01-01 17:05] LABS: CKMB 1.7 ng/mL (0-6.6)
[2019-01-01] MEDS ORDERED: hydrALAZINE 20 MG/ML VIAL SLOW IVP PRN (17:46)
[2019-01-01] MEDS ORDERED: Ondansetron PF 4 MG/2 ML Vial IVP PRN (17:46)
[2019-01-01] MEDS ORDERED: Acetaminophen 325 MG TAB PO PRN (17:46)
--- NOTE | 2019-01-01 17:58 | CON ---
DATE OF CONSULTATION: 01/01/2019 REASON FOR CONSULTATION: Heart failure. PRIMARY RADIO RIGGER: Jose J Ulrich MD HISTORY OF PRESENT ILLNESS: Mr. Arambula is a very pleasant 68-year-old white gentleman, who comes to the hospital for increased shortness of breath. He has a history of cardiomyopathy, EF around 10% to 15%. He is in chronic atrial fibrillation as well, has had bleeding with Coumadin in the past, much more stable now on Eliquis. He states that he has noted a slow increase in his swelling and shortness of breath in the last few months to the point where today it said to command as the shortness of breath was too severe. He has fluid all the way up to his mid abdomen on the back and the front with testicular edema and bilateral lower extremity edema as well. He has already received a dose of IV Lasix and is feeling a little bit better, but still has significant amount of fluid in him. When asking him what happened, he thinks that he may not have paid much attention to his fluid intake. PAST MEDICAL HISTORY: 1. Chronic systolic heart failure, EF at 10% to 15%. 2. COPD. 3. Chronic atrial fibrillation. 4. Renal cell carcinoma. PAST SURGICAL HISTORY: 1. AICD in place. 2. Spinal fusion. 3. [place] teeth removal. 4. Left nephrectomy. 5. Bilateral knee replacement. OUTPATIENT MEDICATIONS: Include: 1. Eliquis 2.5 mg twice a day. 2. Metoprolol succinate 25 mg a day. 3. Temazepam. 4. Lasix 40 mg twice a day. 5. Zofran p.r.n. 6. Digoxin 0.125 daily. 7. DuoNeb p.r.n. ALLERGIES: 1. DEMEROL. 2. IODINE. 3. MEPERIDINE. FAMILY HISTORY: Not noncontributory. SOCIAL HISTORY: No alcohol, tobacco, or drugs. Former smoker. Has smoked several years. Former marijuana smoker as well. Quit 6 years ago. REVIEW OF SYSTEMS: A 12-point review of systems was done and was found to be negative unless stated in the history of present illness. PHYSICAL EXAMINATION: VITAL SIGNS: Temperature 97.5, pulse 90 to 110, respiratory rate 20, saturation 93% on 2 L, and blood pressure 128/88. GENERAL: Awake, alert, and oriented x3. No distress. HEENT: Normocephalic and atraumatic. NECK: Supple. LUNGS: Reduced breath sounds bilaterally consistent with pleural effusion. ABDOMEN: Soft with positive bowel sounds. Edema up to mid abdomen. EXTREMITIES: 3+ edema. SKIN: Erythematous, but dry. DIAGNOSTIC DATA: Chest x-ray was reviewed severe cardiomegaly with small pleural effusions. LABORATORY DATA: Laboratory work was reviewed. CBC; white count of 10, hemoglobin of 15, hematocrit of 52, platelet count of 177. Coags reviewed. Chemistries were reviewed. Sodium 132, potassium 4.1, chloride of 89, carbon dioxide of 33, anion gap of 14, BUN of 23, creatinine 1.3, GFR 55, glucose of 189, calcium 9.3. Total bilirubin of 3.4, AST of 39, ALT 12, alkaline phosphatase 302. Troponin was 0.03 and 0.04, BNP was 3144, and albumin of 3.1. ASSESSMENT: 1. Acute on chronic systolic heart failure. 2. Dietary indiscretions. 3. Chronic atrial fibrillation, on Eliquis. 4. History of gastrointestinal bleeding, on warfarin. PLAN: 1. Continue IV diuresis for now. 2. He has been admitted every 6 months in the last year back in December 2017, again in June and now again in December 2018. Hopefully, dietary indiscretions improve and he will be able to stay out of the hospital for longer. We have counseled him extensively about use of Lasix, doubling up on the Lasix, and use of metolazone. He understands and verbalized understanding of this. 3. Poor candidate for LVAD at this point, as he has had GI bleeding on Coumadin , has been much more stable on Eliquis. Thank you for allowing me to participate in the care of your patient. We will follow. Job ID: [id number] [facility] HEALTHJessica
[2019-01-01 19:18] LABS: Digoxin 0.44 ng/mL (0.8-2.0)
[2019-01-01] MEDS: Famotidine 20 MG TAB PO SCH (20:27)
[2019-01-01] MEDS ORDERED: traMADol HCl 50 MG TAB PO ONE (21:05)
[2019-01-01] MEDS ORDERED: traMADol HCl 50 MG TAB PO SCH (21:05)
[2019-01-01 22:13] VITALS: BMI 32.9
--- NOTE | 2019-01-01 23:29 | PDOC.EVN ---
Event Note - Event Note Event Note: Per RN Wm, patient noted to have redness and swelling of right lower leg, from knee to foot. I attempted to examine patient, however patient refused. States this was seen by Dr. Ulrich earlier today who was not concerned. Per patient redness is improved from this morning. If any concerns will have us paged. Otherwise day team to assess, per patients request.
[2019-01-01] MEDS ORDERED: TEMAZEPAM PO PRN (23:30)
[2019-01-01] MEDS: Temazepam 15 MG CAP PO PRN (23:38)
[2019-01-02 05:17] LABS: Anion Gap 15 mmol/L (10-20); BUN (Urea Nitrogen) 24 mg/dL (8.4-25.7); Calc. Creatinine Clearance 74 mL/min (70-130); Calcium 9.3 mg/dL (7.8-10.44); Carbon Dioxide 35 mmol/L (23-31); Chloride 90 mmol/L (98-107); Estimated GFR-MDRD 57; Glucose 108 mg/dL (80-115); Potassium 3.9 mmol/L (3.5-5.1); Sodium 136 mmol/L (136-145)
[2019-01-02] MEDS: Furosemide 40 MG TAB PO SCH ×2 (05:54→14:00)
[2019-01-02 06:00] LABS: Band 7 % (5-11); Eosinophils 1 % (0-10); Hemoglobin 15.4 g/dL (14.0-18.0); Lymphocytes 14 % (21-51); MDiff Complete? YES; Mean Corpuscular HGB CONC 30.2 g/dL (32.0-36.0); Mean Corpuscular Hemoglobin 29.3 pg (27.0-31.0); Mean Platelet Volume 10.1 fL (7.4-10.4); Monocytes 17 % (0-10); Neutrophil 60 % (42-75); Nucleated RBC 1 % (0); Platelet Count 181 thou/uL (130-400); RBC Distribution Width 18.4 % (11.5-14.5); Reactive Lymphocytes 1 % (0-10); Red Blood Cell (RBC) Count 5.25 mill/uL (4.70-6.10); Target Cells MODERATE= 6-15 cells (100X) (0-1/hpf); White Blood Cell (WBC) Count 6.5 thou/uL (4.8-10.8)
[2019-01-02] MEDS ORDERED: Furosemide 40 MG/4 ML VIAL SLOW IVP SCH (06:00)
[2019-01-02] MEDS: Ipratropium Bromide 2.5 ml Neb NEB SCH ×3 (07:45→20:03)
[2019-01-02] MEDS: Apixaban 2.5 MG TAB PO SCH ×2 (09:39→20:22)
[2019-01-02] MEDS: Famotidine 20 MG TAB PO SCH ×2 (09:39→20:22)
[2019-01-02] MEDS: Ondansetron ODT 4 MG TAB PO PRN (13:37)
[2019-01-02] MEDS ORDERED: Furosemide 100 MG/10 ML VIAL SLOW IVP SCH (15:45)
--- NOTE | 2019-01-02 16:41 | PDOC.PN ---
- Subjective Encounter Start Date: 01/02/19 Encounter Start Time: 13:00 Mr. Arambula was seen today in follow-up of CHF exacerbation, and Cellulitis . - Objective Resuscitation Status - Order Detail: 01/01/19 15:26 Resuscitation Status Routine Resuscitation Status: FULL: Full Resuscitation MAR Reviewed: Yes Vital Signs & Weight: Vital Signs (12 hours) Temp Pulse Pulse Pulse Resp BP BP 01/02/19 15:42 97.3 F L 108 H 20 01/02/19 15:05 94 96 115/86 118/88 01/02/19 12:02 97.4 F L 94 18 01/02/19 09:08 97.9 F 98 22 H 01/02/19 07:45 84 16 BP BP Pulse Ox 01/02/19 15:42 117/86 96 01/02/19 15:05 01/02/19 12:02 109/80 95 01/02/19 09:08 121/75 95 01/02/19 07:45 94 L Weight Weight 210 lb 5 oz I&O: 01/01/19 01/02/19 01/03/19 06:59 06:59 06:59 Intake Total 840 Output Total 625 Balance 215 Result Diagrams: 01/02/19 04:20 01/02/19 04:20 Phys Exam - Physical Examination HEENT: PERRLA Respiratory: no wheezing, no rhonchi + rales at the bases Cardiovascular: RRR, no significant murmur, no rub Gastrointestinal: soft, non-tender, positive bowel sounds Musculoskeletal: pulses present, edema present + 2-3+ pitting edema in both lower extremities, and erythema on the right extremity with some mild warmth Neurological: non-focal Dx/Plan (1) Acute on chronic systolic CHF (congestive heart failure) Code(s): I50.23 - ACUTE ON CHRONIC SYSTOLIC (CONGESTIVE) HEART FAILURE Status : Acute (2) Cellulitis of leg, right Code(s): L03.115 - CELLULITIS OF RIGHT LOWER LIMB Status: Acute (3) CAD (coronary artery disease) Code(s): I25.10 - ATHSCL HEART DISEASE OF [place] CORONARY ARTERY W/O ANG PCTRS Status: Chronic (4) Chronic atrial fibrillation Code(s): I48.2 - CHRONIC ATRIAL FIBRILLATION Status: Chronic (5) COPD (chronic obstructive pulmonary disease) Status: Chronic (6) Chronic respiratory failure Code(s): J96.10 - CHRONIC RESPIRATORY FAILURE, UNSP W HYPOXIA OR HYPERCAPNIA Status: Chronic - Plan * Acute on chronic systolic heart failure- he did not have much urine output with LAsix at 40mg. Agree with increasing the dose to 80mg * Right lower extremity erythema- appears to be a cellulitis- will start Rocephin. * Atrial Fibrillation- his heart rate has been variable, but mostly controlled * He is on Eliquis for CVA prevention * Chronic respiratory failure due to COPD- stable- will re-start Symbicort ( equivalent) and have Duonebs available * Cardiology input appreciated
[2019-01-02] MEDS: cefTRIAXone\\ROCEPHIN 1 GM in Sodium Chloride 0.9% 100 ML IVPB SCH (19:32)
[2019-01-02] MEDS: Mometasone/Formoterol 120 PUFF INHALER INH SCH (20:01)
--- NOTE | 2019-01-02 20:05 | PDOC.CTH ---
Cardiology Progress Note - Subjective He is a little more confused this morning. His leg seems more erythematous than yesterday and significantly more swollen than yesterday, concern for cellulites. - Objective Vital Signs Temp Pulse Pulse Pulse Resp BP BP 01/02/19 15:42 97.3 F L 108 H 20 01/02/19 15:05 94 96 115/86 118/88 01/02/19 12:02 97.4 F L 94 18 01/02/19 09:08 97.9 F 98 22 H BP BP Pulse Ox 01/02/19 15:42 117/86 96 01/02/19 15:05 01/02/19 12:02 109/80 95 01/02/19 09:08 121/75 95 Weight 210 lb 5 oz 01/01/19 01/02/19 01/03/19 06:59 06:59 06:59 Intake Total 840 Output Total 625 Balance 215 - Physical Examination General/Neuro: NAD Neck: no JVD present Lungs: unlabored respirations Heart: other: (Irreg irreg) Abdomen: NT/ND Extremities: + edema B (3+) - Telemetry Telemetry Rhythm: Afib HR 70's. - Labs Result Diagrams: 01/02/19 04:20 01/02/19 04:20 Troponin/CKMB CK-MB (CK-2) 1.7 ng/mL (0-6.6) 01/01/19 16:10 Troponin I 0.039 ng/mL (< 0.028) H 01/01/19 19:00 - Assessment/Plan 1. Acute on chronic systolic heart failure. 2. Dilated CM EF at 10-15% 3. Chronic afib 4. Chronic anticoagulation with Eliquis. 5. Presence of AICD 6. Possible Cellulites. PLAN: - IV diuresis - IV abx per primary team. - Continue to monitor.
[2019-01-02] MEDS: Atorvastatin Calcium 10 MG TAB PO SCH (20:22)
[2019-01-02] MEDS: Aspirin Chewable 81 MG TAB PO SCH (20:22)
[2019-01-02] MEDS: Temazepam 15 MG CAP PO PRN (20:23)
[2019-01-02] MEDS: traMADol HCl 50 MG TAB PO PRN (20:23)
[2019-01-03] MEDS: Furosemide 100 MG/10 ML VIAL SLOW IVP SCH ×2 (05:30→15:08)
[2019-01-03 05:58] LABS: Anion Gap 13 mmol/L (10-20); BUN (Urea Nitrogen) 23 mg/dL (8.4-25.7); Calc. Creatinine Clearance 76 mL/min (70-130); Calcium 9.1 mg/dL (7.8-10.44); Carbon Dioxide 36 mmol/L (23-31); Chloride 91 mmol/L (98-107); Estimated GFR-MDRD 59; Glucose 94 mg/dL (80-115); Potassium 3.2 mmol/L (3.5-5.1); Sodium 137 mmol/L (136-145)
[2019-01-03 06:19] LABS: Anisocytosis SLIGHT = 6-15 cells (100X) (0-5/hpf); Band 9 % (5-11); Hemoglobin 14.3 g/dL (14.0-18.0); Lymphocytes 12 % (21-51); MDiff Complete? YES; Mean Corpuscular HGB CONC 29.3 g/dL (32.0-36.0); Mean Corpuscular Hemoglobin 28.5 pg (27.0-31.0); Mean Corpuscular Volume 97.4 fL (78.0-98.0); Mean Platelet Volume 9.5 fL (7.4-10.4); Monocytes 21 % (0-10); Neutrophil 58 % (42-75); Platelet Count 173 thou/uL (130-400); RBC Distribution Width 18.2 % (11.5-14.5); Red Blood Cell (RBC) Count 5.01 mill/uL (4.70-6.10); Target Cells SLIGHT = 2-5 cells (100X) (0-1/hpf); White Blood Cell (WBC) Count 5.4 thou/uL (4.8-10.8)
[2019-01-03] MEDS: Ipratropium Bromide 2.5 ml Neb NEB SCH ×3 (07:50→19:15)
[2019-01-03] MEDS: Mometasone/Formoterol 120 PUFF INHALER INH SCH ×2 (07:53→19:14)
[2019-01-03] MEDS: Digoxin 0.125 MG TAB PO SCH (08:20)
[2019-01-03] MEDS: Apixaban 2.5 MG TAB PO SCH ×2 (08:21→20:18)
[2019-01-03] MEDS: Famotidine 20 MG TAB PO SCH ×2 (08:21→20:17)
--- NOTE | 2019-01-03 10:07 | PQF ---
CARLOS CASAS RICHA MD [id number] [facility]-297 [id number] CLINICAL DOCUMENTATION IMPROVEMENT CLARIFICATION FORM: ICD-10 Updated PLEASE DO AN ADDENDUM TO THE PROGRESS NOTE WITH ANY DOCUMENTATION UPDATES OR ADDITIONS AND CARRY THROUGH TO DC SUMMARY. THANK YOU. DATE: 01/03/2019 ATTN: DR. Lawrence KEITA Please exercise your independent, professional judgment in responding to the clarification form. Clinical indicators are provided on the bottom of this form for your review. Please check appropriate box(s): [ ] Acute On Chronic Respiratory Failure: [ ] with Hypoxia [ ] with Hypercapnia [ ] Chronic Respiratory Failure only [ ] with Hypoxia [ ] with Hypercapnia [ ] Other diagnosis [ X ] Unable to determine Pt did not let me examine him as he dose not want female MD In addition, please specify: Present on Admission (POA): [ ] Yes [ ] No [ ] Unable to determine For continuity of documentation, please document condition throughout progress notes and discharge summary. Thank You. CLINICAL INDICATORS - SIGNS / SYMPTOMS / LABS ER PRESENTATION 01/01 : ON ARRIVAL O2 SAT 90% 2L > 3L 94-95% (PT ON 2L O2 /NC AT HOME) RESP RATE 20-24 IN ED LABORED, TACHYPNEIC, CONVERSING IN SHORT PHRASES ED PHYSICIAN DX: HYPOXIA AND DYSPNEA H & P 01/01 : PHY EXAM : GENERAL - HE APPEARS TO BE IN MILD DISTRESS DUE TO SOME SOB PN 01/02 (CHIKIS) : 6) CHRONIC RESP FAILURE RISK: COPD WITH CHRONIC RESPIRATORY FAILURE, ON HOME O2 2L/NC ACUTE ON CHRONIC SYSTOLIC HEART FAILURE TREATMENT: O2 @ 3L/NC (01/01 - PRESENT) RESP TREATMENTS ( NEBS TID, 01/01 - PRESENT) THANK YOU! JAZLYN (This form is maintained as a part of the permanent medical record) 2014 [employer]. All Rights Reserved Jazlyn Hudson RN, BSN [email or web address] Office: [phone] [facility]
[2019-01-03] MEDS: traMADol HCl 50 MG TAB PO PRN ×2 (11:01→17:10)
--- NOTE | 2019-01-03 14:51 | PDOC.PN ---
- Subjective Encounter Start Date: 01/03/19 Encounter Start Time: 14:50 Subjective: feels better and reports that swelling is getting better -: dosnot answer other Qs as he does not want female MD - Objective Resuscitation Status - Order Detail: 01/01/19 15:26 Resuscitation Status Routine Resuscitation Status: FULL: Full Resuscitation MAR Reviewed: Yes Vital Signs & Weight: Vital Signs (12 hours) Temp Pulse Pulse Pulse Resp BP BP 01/03/19 13:41 98 20 01/03/19 12:00 98 F 110 H 16 01/03/19 11:43 108 H 87 111/80 110/72 01/03/19 11:04 119 H 16 01/03/19 10:46 95 92 128/90 112/81 01/03/19 08:20 110 H 01/03/19 08:15 01/03/19 08:14 97.2 F L 110 H 18 01/03/19 07:50 117 H 20 01/03/19 03:05 98.2 F 109 H 16 BP Pulse Ox 01/03/19 13:41 92 L 01/03/19 12:00 94 L 01/03/19 11:43 01/03/19 11:04 112/81 01/03/19 10:46 01/03/19 08:20 01/03/19 08:15 93 L 01/03/19 08:14 110/80 93 L 01/03/19 07:50 93 L 01/03/19 03:05 109/59 L 94 L Weight Weight 207 lb 6 oz I&O: 01/02/19 01/03/19 01/04/19 06:59 06:59 06:59 Intake Total 840 1370 Output Total 625 1425 Balance 215 -55 Result Diagrams: 01/03/19 04:42 01/03/19 04:42 Additional Labs: Laboratory Tests 01/01/19 01/02/19 12:47 04:20 B-Natriuretic Peptide 3144.7 H 3764.9 H Phys Exam - Physical Examination easily winded HEENT: PERRLA, moist MMs, sclera anicteric, oral pharynx no lesions Respiratory: no wheezing b/l crackles Cardiovascular: RRR, no significant murmur Gastrointestinal: soft Musculoskeletal: pulses present, edema present RLE erythema and warmth Neurological: non-focal, normal sensation, moves all 4 limbs Dx/Plan (1) Cellulitis of leg, right Code(s): L03.115 - CELLULITIS OF RIGHT LOWER LIMB Status: Acute Comment: on ABx. (2) COPD (chronic obstructive pulmonary disease) Status: Chronic (3) Chronic respiratory failure Code(s): J96.10 - CHRONIC RESPIRATORY FAILURE, UNSP W HYPOXIA OR HYPERCAPNIA Status: Chronic (4) Acute on chronic systolic CHF (congestive heart failure) Code(s): I50.23 - ACUTE ON CHRONIC SYSTOLIC (CONGESTIVE) HEART FAILURE Status : Acute (5) AICD (automatic cardioverter/defibrillator) present Code(s): Z95.810 - PRESENCE OF AUTOMATIC (IMPLANTABLE) CARDIAC DEFIBRILLATOR Status: Chronic (6) CAD (coronary artery disease) Code(s): I25.10 - ATHSCL HEART DISEASE OF [place] CORONARY ARTERY W/O ANG PCTRS Status: Chronic (7) Chronic atrial fibrillation Code(s): I48.2 - CHRONIC ATRIAL FIBRILLATION Status: Chronic (8) Ischemic dilated cardiomyopathy Code(s): I25.5 - ISCHEMIC CARDIOMYOPATHY; I42.0 - DILATED CARDIOMYOPATHY Status: Chronic Comment: EF 10-15%.AICD in place - Plan DVT proph w/SCDs cont diuresis. recommened adding zaroxolyn as minimal UO -: lasix increased today.will defer to cardiology -: will have different Sound MD follow pt -: am labs ordered * . Review of Systems - Review of Systems Constitutional: negative: fever, chills, sweats, weakness, malaise, other Respiratory: SOB with Excertion. negative: Cough, Dry, Shortness of Breath, Hemoptysis, Pleuritic Pain, Sputum, Wheezing Cardiovascular: negative: chest pain, palpitations, orthopnea, paroxysmal nocturnal dyspnea, edema, light headedness, other Gastrointestinal: negative: Nausea, Vomiting, Abdominal Pain, Diarrhea, Constipation, Melena, Hematochezia, Other Genitourinary: negative: Dysuria, Frequency, Incontinence, Hematuria, Retention , Other - Medications/Allergies Allergies/Adverse Reactions: Allergies Allergy/AdvReac Type Severity Reaction Status Date / Time iodine Allergy Verified 07/25/18 16:59 meperidine Allergy Verified 07/25/18 16:59 Medications: Current Medications Acetaminophen (Tylenol) 650 mg PO Q4H PRN PRN Reason: Headache/Fever/Mild Pain (1-3) Albuterol/Ipratropium (Duoneb) 3 ml NEB [id number] PRN PRN Reason: SOB &/or Wheezing Apixaban (Eliquis) 2.5 mg PO BID [facility] Last Admin: 01/03/19 08:21 Dose: 2.5 mg Aspirin (Aspirin Chewable) 81 mg PO QPM [facility] Last Admin: 01/02/19 20:22 Dose: 81 mg Atorvastatin Calcium (Lipitor) 10 mg PO HS [facility] Last Admin: 01/02/19 20:22 Dose: 10 mg Digoxin (Lanoxin) 0.125 mg PO Q2D@0900 [facility] Last Admin: 01/03/19 08:20 Dose: 0.125 mg Famotidine (Pepcid) 20 mg PO BID [facility] Last Admin: 01/03/19 08:21 Dose: 20 mg Furosemide (Lasix) 80 mg SLOW IVP 0600,1400 [facility] Last Admin: 01/03/19 05:30 Dose: 80 mg Hydralazine HCl (Apresoline) 10 mg SLOW IVP Q4H PRN PRN Reason: SBP > 180 and HR < 70 Ceftriaxone Sodium 1 gm/ (Sodium Chloride) 100 mls @ 200 mls/hr IVPB Q24HR [facility] Last Admin: 01/02/19 19:32 Dose: 100 mls Ipratropium Alda (Atrovent) 2.5 ml NEB TID-RT [facility] Last Admin: 01/03/19 13:41 Dose: 2.5 ml Metoprolol Succinate (Toprol Xl) 25 mg PO QAM [facility] Last Admin: 01/03/19 08:21 Dose: 25 mg Mometasone Furoate/Formoterol Fumar (Dulera 200 Mcg/5 Mcg Inhaler) 2 puff INH BID-RT [facility] Last Admin: 01/03/19 07:53 Dose: 2 puff Ondansetron HCl (Zofran Odt) 4 mg PO Q6H PRN PRN Reason: Nausea/Vomiting Last Admin: 01/02/19 13:37 Dose: 4 mg Ondansetron HCl (Zofran) 4 mg IVP Q6H PRN PRN Reason: Nausea/Vomiting Sodium Chloride (Flush - Normal Saline) 10 ml IVF Q12HR [facility] Last Admin: 01/03/19 08:21 Dose: 10 ml Sodium Chloride (Flush - Normal Saline) 10 ml IVF PRN PRN PRN Reason: Saline Flush Temazepam (Restoril) 30 mg PO HSPRN PRN PRN Reason: Insomnia Last Admin: 01/02/19 20:23 Dose: 30 mg Tramadol HCl (Ultram) 100 mg PO QID PRN PRN Reason: Moderate Pain (4-6) Last Admin: 01/03/19 11:01 Dose: 100 mg
[2019-01-03] MEDS: cefTRIAXone\\ROCEPHIN 1 GM in Sodium Chloride 0.9% 100 ML IVPB SCH (17:10)
--- NOTE | 2019-01-03 17:22 | PDOC.CTH ---
Cardiology Progress Note - Subjective He is doing better. Mentation is back to normal. he has diuresed and erythema on leg improved. - Objective Vital Signs Temp Pulse Pulse Pulse Resp BP BP 01/03/19 15:05 97.4 F L 90 16 01/03/19 13:41 98 20 01/03/19 12:00 98 F 110 H 16 01/03/19 11:43 108 H 87 111/80 110/72 01/03/19 11:04 119 H 16 01/03/19 10:46 95 92 128/90 112/81 01/03/19 08:20 110 H 01/03/19 08:15 01/03/19 08:14 97.2 F L 110 H 18 01/03/19 07:50 117 H 20 BP Pulse Ox 01/03/19 15:05 105/76 95 01/03/19 13:41 92 L 01/03/19 12:00 94 L 01/03/19 11:43 01/03/19 11:04 112/81 01/03/19 10:46 01/03/19 08:20 01/03/19 08:15 93 L 01/03/19 08:14 110/80 93 L 01/03/19 07:50 93 L Weight 207 lb 6 oz 01/02/19 01/03/19 01/04/19 06:59 06:59 06:59 Intake Total 840 1370 Output Total 625 1425 Balance 215 -55 - Physical Examination General/Neuro: alert & oriented x3, NAD Neck: no JVD present Lungs: unlabored respirations Heart: other: (Irreg Irreg) Abdomen: NT/ND Extremities: other: (2+ R>L, R leg erythema) - Telemetry Telemetry Rhythm: NSR - Labs Result Diagrams: 01/03/19 04:42 01/03/19 04:42 Troponin/CKMB CK-MB (CK-2) 1.7 ng/mL (0-6.6) 01/01/19 16:10 Troponin I 0.039 ng/mL (< 0.028) H 01/01/19 19:00 - Assessment/Plan 1. Acute on chronic systolic heart failure. 2. Dilated CM EF at 10-15% 3. Chronic afib 4. Chronic anticoagulation with Eliquis. 5. Presence of AICD 6. Possible Cellulites. PLAN: - Continue IV diuresis - IV abx per primary team. - Continue to monitor. - Replace K.
[2019-01-03] MEDS: Aspirin Chewable 81 MG TAB PO SCH (20:17)
[2019-01-03] MEDS: Atorvastatin Calcium 10 MG TAB PO SCH (20:17)
[2019-01-04] MEDS: Furosemide 100 MG/10 ML VIAL SLOW IVP SCH ×2 (05:54→14:34)
[2019-01-04 07:12] LABS: Anion Gap 16 mmol/L (10-20); BUN (Urea Nitrogen) 24 mg/dL (8.4-25.7); Calc. Creatinine Clearance 74 mL/min (70-130); Calcium 8.9 mg/dL (7.8-10.44); Carbon Dioxide 34 mmol/L (23-31); Chloride 90 mmol/L (98-107); Estimated GFR-MDRD 58; Glucose 90 mg/dL (80-115); Potassium 3.9 mmol/L (3.5-5.1); Sodium 136 mmol/L (136-145)
[2019-01-04] MEDS: Ipratropium Bromide 2.5 ml Neb NEB SCH ×3 (07:55→19:27)
[2019-01-04] MEDS: Mometasone/Formoterol 120 PUFF INHALER INH SCH ×2 (07:59→19:25)
[2019-01-04] MEDS: Apixaban 2.5 MG TAB PO SCH ×2 (08:24→20:11)
[2019-01-04] MEDS: Famotidine 20 MG TAB PO SCH ×2 (08:25→20:11)
--- NOTE | 2019-01-04 10:12 | PQF ---
CARLOS CASAS RICHA MD [id number] [facility]-297 [id number] CLINICAL DOCUMENTATION IMPROVEMENT CLARIFICATION FORM: ICD-10 Updated PLEASE DO AN ADDENDUM TO THE PROGRESS NOTE WITH ANY DOCUMENTATION UPDATES OR ADDITIONS AND CARRY THROUGH TO DC SUMMARY. THANK YOU. DATE: 01/03/2019, 01/04 ATTN: DR. Lawrence KEITA, DR. Hamlet SEWELL Please exercise your independent, professional judgment in responding to the clarification form. Clinical indicators are provided on the bottom of this form for your review. Please check appropriate box(s): [ x] Acute On Chronic Respiratory Failure: [ x ] with Hypoxia [ ] with Hypercapnia [ ] Chronic Respiratory Failure only [ ] with Hypoxia [ ] with Hypercapnia [ ] Other diagnosis [ ] Unable to determine In addition, please specify: Present on Admission (POA): [ x ] Yes [ ] No [ ] Unable to determine For continuity of documentation, please document condition throughout progress notes and discharge summary. Thank You. CLINICAL INDICATORS - SIGNS / SYMPTOMS / LABS ER PRESENTATION 01/01 : ON ARRIVAL O2 SAT 90% 2L > 3L 94-95% (PT ON 2L O2 /NC AT HOME) RESP RATE 20-24 IN ED LABORED, TACHYPNEIC, CONVERSING IN SHORT PHRASES ED PHYSICIAN DX: HYPOXIA AND DYSPNEA H & P 01/01 : PHY EXAM : GENERAL - HE APPEARS TO BE IN MILD DISTRESS DUE TO SOME SOB PN 01/02 (CHIKIS) : 6) CHRONIC RESP FAILURE RISK: COPD WITH CHRONIC RESPIRATORY FAILURE, ON HOME O2 2L/NC ACUTE ON CHRONIC SYSTOLIC HEART FAILURE TREATMENT: O2 @ 3L/NC (01/01 - PRESENT) RESP TREATMENTS ( NEBS TID, 01/01 - PRESENT) THANK YOU! JAZLYN This form is maintained as a part of the permanent medical record) 2014 [employer]. All Rights Reserved Jazlyn Hudson RN, BSN [email or web address] Office: [phone] [facility]
[2019-01-04] MEDS: traMADol HCl 50 MG TAB PO PRN ×2 (14:33→20:13)
[2019-01-04] MEDS: Ondansetron ODT 4 MG TAB PO PRN ×2 (14:33→20:13)
--- NOTE | 2019-01-04 15:41 | PDOC.PN ---
- Subjective Encounter Start Date: 01/04/19 Encounter Start Time: 02:30 Has has some weeping from the edema of the left forearm. Breathing is still sub -par. Believes the leg is doing better. - Objective Resuscitation Status - Order Detail: 01/01/19 15:26 Resuscitation Status Routine Resuscitation Status: FULL: Full Resuscitation Vital Signs & Weight: Vital Signs (12 hours) Temp Pulse Resp BP BP Pulse Ox 01/04/19 13:11 81 16 95 01/04/19 12:12 97.0 F L 99 18 115/77 91 L 01/04/19 08:18 98.2 F 99 16 121/81 92 L 01/04/19 08:00 93 L 01/04/19 07:59 86 18 93 L 01/04/19 07:55 86 18 93 L 01/04/19 04:00 97 F L 86 20 109/76 95 Weight Weight 208 lb 4.8 oz I&O: 01/03/19 01/04/19 01/05/19 06:59 06:59 06:59 Intake Total 1370 1920 Output Total 1425 3200 Balance -55 -1280 Result Diagrams: 01/03/19 04:42 01/04/19 05:39 Phys Exam - Physical Examination Constitutional: NAD Respiratory: no wheezing Bibasilar rales. Cardiovascular: RRR, no significant murmur Gastrointestinal: soft, non-tender, no distention, positive bowel sounds Dependent edema of B forearms and BLE's to pelvis. Psychiatric: normal affect, A&O x 3 Deviation from normal: RLE edema appears to be regressing. Several superficial open wounds. Dx/Plan (1) Cellulitis of leg, right Code(s): L03.115 - CELLULITIS OF RIGHT LOWER LIMB Status: Acute Comment: on ABx. (2) COPD (chronic obstructive pulmonary disease) Status: Chronic (3) Acute and chronic respiratory failure ([id number]) Code(s): J96.20 - ACUTE AND CHR RESP FAILURE, UNSP W HYPOXIA OR HYPERCAPNIA Status: Acute Comment: Cedric Fluid Overload (4) Acute on chronic systolic CHF (congestive heart failure) Code(s): I50.23 - ACUTE ON CHRONIC SYSTOLIC (CONGESTIVE) HEART FAILURE Status : Acute (5) AICD (automatic cardioverter/defibrillator) present Code(s): Z95.810 - PRESENCE OF AUTOMATIC (IMPLANTABLE) CARDIAC DEFIBRILLATOR Status: Chronic (6) CAD (coronary artery disease) Code(s): I25.10 - ATHSCL HEART DISEASE OF [place] CORONARY ARTERY W/O ANG PCTRS Status: Chronic (7) Chronic atrial fibrillation Code(s): I48.2 - CHRONIC ATRIAL FIBRILLATION Status: Chronic - Plan * Needs continued diuresis. Still has significant peripheral edema. Still has pulm edema. * Cardiology following. * Consult Dr. Aguilar. * Continue IV abx. Appears that it is working. * Continue supplemental oxygen as needed.
[2019-01-04] MEDS: cefTRIAXone\\ROCEPHIN 1 GM in Sodium Chloride 0.9% 100 ML IVPB SCH (17:33)
--- NOTE | 2019-01-04 17:33 | PDOC.CTH ---
Cardiology Progress Note - Subjective No new issues. He continues to diurese. - Objective Vital Signs Temp Pulse Resp BP Pulse Ox 01/04/19 13:11 81 16 95 01/04/19 12:12 97.0 F L 99 18 115/77 91 L 01/04/19 08:18 98.2 F 99 16 121/81 92 L 01/04/19 08:00 93 L 01/04/19 07:59 86 18 93 L 01/04/19 07:55 86 18 93 L Weight 208 lb 4.8 oz 01/03/19 01/04/19 01/05/19 06:59 06:59 06:59 Intake Total 1370 1920 Output Total 1425 3200 Balance -55 -1280 - Physical Examination General/Neuro: alert & oriented x3, NAD Neck: no JVD present Lungs: CTA, unlabored respirations Heart: RRR Abdomen: NT/ND Extremities: + edema B (2+ R>L, improved.) - Telemetry Telemetry Rhythm: Afib HR 80's. - Labs Result Diagrams: 01/03/19 04:42 01/04/19 05:39 Troponin/CKMB CK-MB (CK-2) 1.7 ng/mL (0-6.6) 01/01/19 16:10 Troponin I 0.039 ng/mL (< 0.028) H 01/01/19 19:00 - Assessment/Plan 1. Acute on chronic systolic heart failure. 2. Dilated CM EF at 10-15% 3. Chronic afib 4. Chronic anticoagulation with Eliquis. 5. Presence of AICD 6. Possible Cellulites. PLAN: - Continue IV diuresis - IV abx per primary team. - Continue to monitor. - Slowly improving. If creatinine starts to increase and still volume overload will need dobutamine drip.
--- NOTE | 2019-01-04 17:36 | PRG ---
PULMONARY CONSULTATION NOTE: DATE OF SERVICE: 01/04/2019 SERVICE: Pulmonary Medicine. REASON FOR CONSULTATION: Respiratory failure. HISTORY OF PRESENT ILLNESS: The patient is a 68-year-old white male, who presented to the hospital with increasing dyspnea on exertion, it came on over a couple of weeks. It was particularly bad whenever he would lie down. He is waking up, choking, and gasping in the middle of the night. He did not have any fevers or chills. He was not coughing up any sputum with significant color to it. He presented to the hospital, and was discovered to be profoundly volume overloaded. He has been diuresed steadily, and his respiratory issue is resolving. He denies any current chest pain, fevers, or chills. He indicates that he has moved in the right direction since he has been in the hospital on Tuesday. He was supposed to see me in the outpatient setting this week, so that we could arrange for him to have a polysomnogram, but unfortunately, he found himself in the hospital once unable to do so. PAST MEDICAL HISTORY: 1. Chronic hypoxic and hypercapnic respiratory failure. 2. COPD. 3. Chronic systolic heart failure (10% EF). 4. Atrial fibrillation. 5. Coronary artery disease. 6. History of CVA. PAST SURGICAL HISTORY: 1. AICD placement. 2. Spinal fusion. 3. Traumatic injury to right finger. 4. Extraction of wisdom teeth. 5. Right wrist cyst excision. 6. Chest tube placement with subsequent removal. 7. Fusion at C4, C5, C6. 8. Nephrectomy on the right. 9. Total knee replacement, bilateral. FAMILY HISTORY: Noncontributory. SOCIAL HISTORY: Negative for current tobacco, alcohol, or illicit drug use. He has a remote history of smoking. He lives with his and has no exposure to chemicals, dust, asbestos, or tuberculosis. He is an avid golfer, but has not been able to get out in quite some time because of his debility, and breathing issues. ALLERGIES: DEMEROL, IODINE, AND MEPERIDINE. MEDICATIONS: List of his inpatient medications was reviewed. No specific updates were made at this time. REVIEW OF SYSTEMS: General, head, ears, eyes, nose, throat, cardiovascular, respiratory, GI, , musculoskeletal, neurologic, and skin is negative except as mentioned in the HPI. PHYSICAL EXAMINATION: VITAL SIGNS: Afebrile, pulse 99, blood pressure 115/77, respirations 18, and saturation 95% on 3 L nasal cannula. GENERAL: The patient is awake and alert, in no apparent distress. LUNGS: Decent air entry. There is really no prolonged expiratory phase. Crackles are noted. HEART: Normal rate, regular. ABDOMEN: Soft, nontender, and nondistended. Bowel sounds are positive. MUSCULOSKELETAL: No cyanosis or clubbing. There is 2+ pitting in the bilateral lower extremities and he tells me this is dramatically improved. LABORATORY DATA: CBC is completely unremarkable. INR 1.4. Basic metabolic profile is unremarkable except for creatinine of 1.24, which is just barely above his baseline. Chloride 90, BNP 3700, and historic high. Troponin is downtrending to 0.039. Liver function studies were previously unremarkable. Blood cultures x2 are unremarkable. Echocardiogram demonstrates 10% to 15% ejection fraction and severely enlarged left ventricular cavity. He is in atrial fibrillation, so diastology cannot be assessed. Dilated RV with reduced RV systolic function. Pacer wires are noted. There is a severely dilated left atrium, and moderately enlarged right atrium. IVC is dilated. Moderate pericardial effusion is also present without any tamponade. Chest x-ray demonstrates marked cardiomegaly, but otherwise is stable exam. There is some blunting to the right costophrenic angle, which is essentially stable. ASSESSMENT: 1. Acute on chronic hypoxic respiratory failure. 2. Chronic hypercapnic respiratory failure. 3. Acute on chronic systolic heart failure. 4. Atrial fibrillation, permanent. 5. Chronic obstructive pulmonary disease without current exacerbation. 6. Obstructive sleep apnea, suspected. DISCUSSION AND PLAN: We will continue to diurese the patient through time. Antibiotics per Primary Service, but from my perspective, he can be transitioned over to p.o. medications. Dulera will be continued. Pulmonary Critical Care will continue to follow along so long as the patient remains in-house, but hopefully he will be able to get home as soon as he has been diuresed to euvolemia. This might take several more days. In the outpatient setting, we will continue working toward getting him an outpatient polysomnogram. 70 minutes have been devoted to this patient in various activities. I personally reviewed all imaging studies and laboratory data noted within this document. For fifty percent of this time, I was interacting with the patient at the bedside or coordinating care with the care team. For the remainder of the time I was immediately available to the patient in the hospital unit. Job ID: [id number] MTDD
[2019-01-04] MEDS: Aspirin Chewable 81 MG TAB PO SCH (20:11)
[2019-01-04] MEDS: Atorvastatin Calcium 10 MG TAB PO SCH (20:11)
[2019-01-05] MEDS ORDERED: Diltiazem HCl 125 MG, Admixture Fee 1 EACH in Sodium Chloride 0.9% 100 ML IVPB SCH (01:15)
[2019-01-05] MEDS: Furosemide 100 MG/10 ML VIAL SLOW IVP SCH ×3 (05:35→15:09)
[2019-01-05] MEDS: Mometasone/Formoterol 120 PUFF INHALER INH SCH ×2 (06:38→20:23)
[2019-01-05] MEDS: Ipratropium Bromide 2.5 ml Neb NEB SCH ×3 (06:41→20:18)
--- NOTE | 2019-01-05 08:37 | PDOC.CTH ---
Cardiology Progress Note - Subjective Doing better. Slight improvement in fluid balance today. Able to talk better. - Objective Vital Signs Temp Pulse Resp BP Pulse Ox 01/05/19 08:05 97.6 F 98 20 103/76 95 01/05/19 06:41 80 18 94 L 01/05/19 06:38 80 16 94 L 01/05/19 04:16 97.7 F 79 17 93/66 95 01/05/19 00:00 101 H 120/79 Weight 210 lb 01/04/19 01/05/19 01/06/19 06:59 06:59 06:59 Intake Total 1920 1230 Output Total 3200 1900 Balance -1280 -670 - Physical Examination General/Neuro: alert & oriented x3, NAD Neck: no JVD present Lungs: CTA, unlabored respirations Heart: other: (Irreg ) Abdomen: NT/ND Extremities: + edema B (2+, right erythema unchanged) - Telemetry Telemetry Rhythm: Afib HR 60's. - Labs Result Diagrams: 01/03/19 04:42 01/04/19 05:39 Troponin/CKMB CK-MB (CK-2) 1.7 ng/mL (0-6.6) 01/01/19 16:10 Troponin I 0.039 ng/mL (< 0.028) H 01/01/19 19:00 - Assessment/Plan 1. Acute on chronic systolic heart failure. 2. Dilated CM EF at 10-15% 3. Chronic afib 4. Chronic anticoagulation with Eliquis. 5. Presence of AICD 6. Possible Cellulites. 7. Hx of GI bleeding on coumadin PLAN: - Continue IV diuresis - IV abx per primary team. - Continue to monitor. - Slowly improving. If creatinine starts to increase and still volume overload will need dobutamine drip. - Creatinine stable today.
[2019-01-05 08:57] LABS: Anion Gap 16 mmol/L (10-20); BUN (Urea Nitrogen) 27 mg/dL (8.4-25.7); Calc. Creatinine Clearance 66 mL/min (70-130); Calcium 9.1 mg/dL (7.8-10.44); Carbon Dioxide 35 mmol/L (23-31); Chloride 88 mmol/L (98-107); Estimated GFR-MDRD 50; Glucose 105 mg/dL (80-115); Potassium 3.9 mmol/L (3.5-5.1); Sodium 135 mmol/L (136-145)
[2019-01-05] MEDS: Famotidine 20 MG TAB PO SCH ×2 (09:10→20:23)
[2019-01-05] MEDS: Digoxin 0.125 MG TAB PO SCH (09:11)
[2019-01-05] MEDS: Apixaban 2.5 MG TAB PO SCH ×2 (09:11→20:23)
[2019-01-05] MEDS: traMADol HCl 50 MG TAB PO PRN ×2 (09:19→15:10)
[2019-01-05] MEDS: Ondansetron ODT 4 MG TAB PO PRN (15:29)
--- NOTE | 2019-01-05 16:42 | PRG ---
DATE OF SERVICE: 01/05/2019 INTERVAL HISTORY: The patient is doing great from respiratory standpoint. Last night, he lost his IV because of a dream where he jerked and pulled the IV out. Either way, they spent about 30 minutes re-establishing his IV access. Outside of that, he actually woke up fairly refreshed this morning. He is breathing comfortably. He coughed up a little bit of pale sputum. He is certainly moving in the right direction. He feels fairly comfortable. PHYSICAL EXAMINATION: VITAL SIGNS: Afebrile, pulse 78, blood pressure 98/76, respirations 18, saturation 95% on 3 L nasal cannula. GENERAL: The patient is awake and alert, in no apparent distress. LUNGS: Decent air entry. No prolonged expiratory phase or wheezing is appreciated. HEART: Normal rate regular. ABDOMEN: Soft, nontender, nondistended. Bowel sounds are positive. MUSCULOSKELETAL: No cyanosis or clubbing. No pitting in the bilateral lower extremities. NEUROLOGIC: Grossly nonfocal. LABORATORY DATA: Sodium 135, bicarb 35 and increasing, creatinine 1.4, BUN 27. Basic metabolic profile is otherwise unremarkable. Digoxin 0.44. ASSESSMENT: 1. Acute on chronic hypoxic respiratory failure. This resolved to baseline. 2. Chronic hypercapnic respiratory failure. 3. Acute on chronic systolic heart failure (ejection fraction 10%). 4. Atrial fibrillation, permanent. 5. Chronic obstructive pulmonary disease without current exacerbation. 6. Obstructive sleep apnea, suspected. DISCUSSION AND PLAN: We will continue to diurese the patient to euvolemia. We will need to back off on our interval ever so slightly. Pulmonary will continue to follow intermittently during this hospital stay. Once he leaves the hospital, we will once again try to reestablish his outpatient polysomnogram. Job ID: [id number]
[2019-01-05] MEDS: cefTRIAXone\\ROCEPHIN 1 GM in Sodium Chloride 0.9% 100 ML IVPB SCH (18:29)
[2019-01-05] MEDS: Atorvastatin Calcium 10 MG TAB PO SCH (20:24)
[2019-01-05] MEDS: Aspirin Chewable 81 MG TAB PO SCH (20:24)
--- NOTE | 2019-01-05 20:53 | PDOC.PN ---
- Subjective Encounter Start Date: 01/05/19 Encounter Start Time: 10:50 Doing a little better. Breathing a little better. - Objective Resuscitation Status - Order Detail: 01/01/19 15:26 Resuscitation Status Routine Resuscitation Status: FULL: Full Resuscitation Vital Signs & Weight: Vital Signs (12 hours) Temp Pulse Pulse Pulse Resp BP BP 01/05/19 20:23 86 18 01/05/19 20:18 86 18 01/05/19 16:55 97.4 F L 96 20 01/05/19 15:00 86 01/05/19 14:20 81 86 94/77 98/76 01/05/19 13:16 75 18 01/05/19 12:00 97.8 F 78 20 01/05/19 09:11 88 BP BP Pulse Ox 01/05/19 20:23 95 01/05/19 20:18 01/05/19 16:55 106/56 L 95 01/05/19 15:00 98/76 01/05/19 14:20 01/05/19 13:16 95 01/05/19 12:00 106/80 95 01/05/19 09:11 Weight Weight 210 lb I&O: 01/04/19 01/05/19 01/06/19 06:59 06:59 06:59 Intake Total 1920 1230 940 Output Total 3200 1900 530 Balance -1280 -670 410 Result Diagrams: 01/03/19 04:42 01/05/19 08:26 Additional Labs: Accuchecks 01/05/19 10:50 POC Glucose 101 Phys Exam - Physical Examination Constitutional: NAD Respiratory: no wheezing, no rhonchi Bibasilar rales. Improved. Cardiovascular: no significant murmur, no rub, irregular Gastrointestinal: soft, non-tender, no distention Substantial edema of the LE's and distal UE's. Persistent erythema of the RLE. Does not appear significantly changed from yesterday. Psychiatric: normal affect, A&O x 3 Dx/Plan (1) Acute on chronic systolic CHF (congestive heart failure) Code(s): I50.23 - ACUTE ON CHRONIC SYSTOLIC (CONGESTIVE) HEART FAILURE Status : Acute (2) Cellulitis of leg, right Code(s): L03.115 - CELLULITIS OF RIGHT LOWER LIMB Status: Acute Comment: on ABx. (3) COPD (chronic obstructive pulmonary disease) Status: Chronic (4) Acute and chronic respiratory failure ([id number]) Code(s): J96.20 - ACUTE AND CHR RESP FAILURE, UNSP W HYPOXIA OR HYPERCAPNIA Status: Acute Comment: [place] Fluid Overload (5) AICD (automatic cardioverter/defibrillator) present Code(s): Z95.810 - PRESENCE OF AUTOMATIC (IMPLANTABLE) CARDIAC DEFIBRILLATOR Status: Chronic (6) CAD (coronary artery disease) Code(s): I25.10 - ATHSCL HEART DISEASE OF [place] CORONARY ARTERY W/O ANG PCTRS Status: Chronic (7) Chronic atrial fibrillation Code(s): I48.2 - CHRONIC ATRIAL FIBRILLATION Status: Chronic - Plan * Continue diuresis. * Change the abx from Rocephin to Zosyn. * Discussed with Dr. Ulrich.
[2019-01-05] MEDS: Piperacillin/Tazobactam 3.375 GM in Sodium Chloride 0.9% 100 ML IVPB SCH (22:35)
[2019-01-06] MEDS: Piperacillin/Tazobactam 3.375 GM in Sodium Chloride 0.9% 100 ML IVPB SCH ×4 (03:24→20:27)
[2019-01-06 07:03] LABS: Anion Gap 19 mmol/L (10-20); BUN (Urea Nitrogen) 28 mg/dL (8.4-25.7); Calc. Creatinine Clearance 64 mL/min (70-130); Calcium 9.3 mg/dL (7.8-10.44); Carbon Dioxide 31 mmol/L (23-31); Chloride 89 mmol/L (98-107); Estimated GFR-MDRD 47; Glucose 93 mg/dL (80-115); Potassium 3.8 mmol/L (3.5-5.1); Sodium 135 mmol/L (136-145)
[2019-01-06] MEDS: Famotidine 20 MG TAB PO SCH ×3 (08:56→22:36)
[2019-01-06] MEDS: Ipratropium Bromide 2.5 ml Neb NEB SCH ×3 (08:58→20:26)
[2019-01-06] MEDS ORDERED: Furosemide 100 MG/10 ML VIAL SLOW IVP SCH (09:00)
[2019-01-06] MEDS: Mometasone/Formoterol 120 PUFF INHALER INH SCH ×2 (09:11→20:28)
[2019-01-06] MEDS: traMADol HCl 50 MG TAB PO PRN ×2 (09:22→20:27)
[2019-01-06] MEDS: Apixaban 2.5 MG TAB PO SCH ×3 (09:23→22:34)
--- NOTE | 2019-01-06 13:00 | PDOC.PN ---
- Subjective Encounter Start Date: 01/06/19 Encounter Start Time: 10:00 Doing ok. Still has a lot of fluid retention. - Objective Resuscitation Status - Order Detail: 01/01/19 15:26 Resuscitation Status Routine Resuscitation Status: FULL: Full Resuscitation Vital Signs & Weight: Vital Signs (12 hours) Temp Pulse Resp BP Pulse Ox 01/06/19 09:11 113 H 16 01/06/19 09:02 98 01/06/19 08:58 113 H 16 01/06/19 08:49 97.9 F 95 20 118/84 95 01/06/19 04:00 97.4 F L 78 18 119/70 99 Weight Weight 212 lb 8 oz I&O: 01/05/19 01/06/19 01/07/19 06:59 06:59 06:59 Intake Total 1230 1620 Output Total 1900 1180 Balance -670 440 Result Diagrams: 01/03/19 04:42 01/06/19 06:35 Phys Exam - Physical Examination Constitutional: NAD Bibasilar rales. Greater on left. Cardiovascular: RRR II/ M apex. Gastrointestinal: soft, non-tender, no distention, positive bowel sounds Dependent edema BUE's. 2-3+ pitting edema BLE's Neurological: non-focal Psychiatric: normal affect, A&O x 3 Deviation from normal: Multiple superficial skin lesions on arms and legs. No weeping. -: Slight decrease in erythema of right calf. Dx/Plan (1) Acute on chronic systolic CHF (congestive heart failure) Code(s): I50.23 - ACUTE ON CHRONIC SYSTOLIC (CONGESTIVE) HEART FAILURE Status : Acute (2) Cellulitis of leg, right Code(s): L03.115 - CELLULITIS OF RIGHT LOWER LIMB Status: Acute Comment: on ABx. (3) COPD (chronic obstructive pulmonary disease) Status: Chronic (4) Acute and chronic respiratory failure ([id number]) Code(s): J96.20 - ACUTE AND CHR RESP FAILURE, UNSP W HYPOXIA OR HYPERCAPNIA Status: Acute Comment: [place] Fluid Overload (5) AICD (automatic cardioverter/defibrillator) present Code(s): Z95.810 - PRESENCE OF AUTOMATIC (IMPLANTABLE) CARDIAC DEFIBRILLATOR Status: Chronic (6) CAD (coronary artery disease) Code(s): I25.10 - ATHSCL HEART DISEASE OF [place] CORONARY ARTERY W/O ANG PCTRS Status: Chronic (7) Chronic atrial fibrillation Code(s): I48.2 - CHRONIC ATRIAL FIBRILLATION Status: Chronic - Plan * Have been chipping away with the diuresis. * His BUN and creat are starting to increase a little. Has solitary kidney. * Cards following. ? considering dobutamine at some point as the diuresis is going to be limited by rising creat. * changed to Zosyn for the cellulitis. Looks slightly better today.
[2019-01-06] MEDS ORDERED: Bisacodyl 5 MG TAB PO PRN (15:21)
--- NOTE | 2019-01-06 18:45 | EKG ---
Test Reason : Blood Pressure : / mmHG Vent. Rate : 137 BPM Atrial Rate : 138 BPM P-R Int : 000 ms QRS Dur : 108 ms QT Int : 314 ms P-R-T Axes : 000 -77 090 degrees QTc Int : 474 ms Atrial fibrillation with rapid ventricular response Left axis deviation Low voltage QRS Septal infarct , age undetermined Possible Lateral infarct , age undetermined Inferior infarct , age undetermined Abnormal ECG Confirmed by AUSTIN NESBITT ([id number]), art editor JEFFRY TONEY ([id number]) on 01/06/2019 6:44:25 PM Referred By: Confirmed By:AUSTIN NESBITT
[2019-01-06] MEDS: Atorvastatin Calcium 10 MG TAB PO SCH ×2 (20:28→22:36)
[2019-01-06] MEDS: Aspirin Chewable 81 MG TAB PO SCH ×2 (20:28→22:36)
[2019-01-06 23:13] VITALS: BP 107/73; TEMP 97.4
== END 2019-01-06 22:55 | disposition left against medical advice (07) | DRG 291 ==
LOC: ERS 12:16 → 2NO 14:26
PROVIDERS: ADMIT Internal Medicine; ATTEND Internal Medicine
DX: I11.0 Hypertensive heart disease with heart failure (principal); J96.21 Acute and chronic respiratory failure with hypoxia; L03.115 Cellulitis of right lower limb; J96.12 Chronic respiratory failure with hypercapnia; I50.23 Acute on chronic systolic (congestive) heart failure; J44.9 Chronic obstructive pulmonary disease, unspecified; Z95.810 Presence of automatic (implantable) cardiac defibrillator; I25.10 Atherosclerotic heart disease of native coronary artery without angina pectoris; I48.2 Chronic atrial fibrillation; I25.5 Ischemic cardiomyopathy; Z79.01 Long term (current) use of anticoagulants; Z86.73 Personal history of transient ischemic attack (TIA), and cerebral infarction without residual deficits; G47.33 Obstructive sleep apnea (adult) (pediatric)
CPT/HCPCS: 36415; 36416; 71045; 80048; 80053; 80162; 82553; 83880; 84484; 85025; 93005; 93306; 93798; 94640; 94664; 96374; 96375; J0696; J1940; J2543; J7050; Q0162

== ENCOUNTER 2020-12-01 14:53 | Outpatient (CLI) | payer MEDICARE ==
--- NOTE | 2020-12-01 15:39 | CT ---
EXAM: CT Upper Ext Lt WO Con PROVIDED CLINICAL HISTORY: Pain status post injury COMPARISON: None FINDINGS: Examination was performed in pronation. The ulnar articular surface is displaced dorsally with respec t to the sigmoid notch to a greater degree than is typical on the basis of pronation alone, suggesting DRUJ instability. Alignment appears otherwise anatomic. There are postoperative and degenerative changes seen at the fi rst CMC joint. Degenerative changes are seen at the STT joint. Intraosseous ganglia are noted, notably involving the capitate. Joint spaces appear otherwise preserved. A small radiocarpal joint ef fusion is suspected. There is no evidence for fracture. There is apparent volar subluxation of the ECU tendon. IMPRESSION: 1. Findings suggesting DRUJ instability. 2. Dorsal subluxation of the ECU tendon is suspected, which could reflect subsheath injury.
== END 2020-12-01 14:54 | disposition home or self-care (01) ==
LOC: BICCT 14:53
PROVIDERS: ATTEND Orthopaedic Surgery
DX: M19.032 Primary osteoarthritis, left wrist (principal)

== ENCOUNTER 2021-05-29 17:46 | Inpatient (IN) | payer MEDICARE ==
[2021-05-29] MEDS ORDERED: Magnesium 2 GM/50 ML BAG (IN WATER) ONE (17:57)
[2021-05-29] MEDS ORDERED: Digoxin 0.5 MG/2 ML AMP ONE (17:57)
[2021-05-29] MEDS ORDERED: Aspirin 325 MG TAB ONE (18:40)
[2021-05-29 18:54] LABS: ALT (SGPT) 14 U/L (8-55); AST (SGOT) 37 U/L (5-34); Albumin 3.2 g/dL (3.4-4.8); Alkaline Phosphatase 281 U/L (40-110); Anion Gap 26 mmol/L (10-20); BUN (Urea Nitrogen) 40 mg/dL (8.4-25.7); CK (CPK) 80 U/L (30-200); Calc. Creatinine Clearance 0 mL/min (70-130); Calcium 8.8 mg/dL (7.8-10.44); Carbon Dioxide 18 mmol/L (23-31); Chloride 91 mmol/L (98-107); Globulin 3.8 g/dL (2.4-3.5); Glucose 132 mg/dL (83-110); Lipase 23 U/L (8-78); Potassium 5.3 mmol/L (3.5-5.1); Sodium 130 mmol/L (136-145)
[2021-05-29 19:16] LABS: Hemoglobin 16.9 g/dL (14.0-18.0); Mean Corpuscular HGB CONC 30.9 g/dL (32.0-36.0); Mean Corpuscular Hemoglobin 30.3 pg (27.0-31.0); Mean Corpuscular Volume 98.1 fL (78.0-98.0); Mean Platelet Volume 11.2 fL (7.4-10.4); Platelet Count 122 thou/uL (130-400); Red Blood Cell (RBC) Count 5.56 mill/uL (4.70-6.10)
[2021-05-29 19:17] LABS: CKMB 3.1 ng/mL (0-6.6)
[2021-05-29 19:21] LABS: Anisocytosis SLIGHT = 6-15 cells (100X) (0-5/hpf); Band 20 % (5-11); Hypochromia SLIGHT = 6-15 cells (100X) (0-5/hpf); Large Platelets SLIGHT; Lymphocytes 11 % (21-51); MDiff Complete? YES; Monocytes 13 % (0-10); Neutrophil 50 % (42-75); Nucleated RBC 1 % (0); Platelet Morphology Comment Appears Decreased; Polychromasia MODERATE = 3-4 cells (100X) (0-2/hpf); Reactive Lymphocytes 6 % (0-10); Target Cells MODERATE= 6-15 cells (100X) (0-1/hpf); White Blood Cell (WBC) Count 8.5 thou/uL (4.8-10.8)
[2021-05-29] MEDS ORDERED: Cefepime 2 GM VIAL ONE (20:06)
[2021-05-29 20:13] LABS: Bilirubin Negative (Negative); Blood, Urine Trace (Negative); Glucose, Urine (Dipstick) Negative (Negative); Ketone, Urine Negative (Negative); Leukocyte Negative (Negative); Nitrite Negative (Negative); Protein, Urine (Dipstick) Trace mg/dL (Neg-Trace); Urobilinogen 0.2 mg/dL (Less than 2)
[2021-05-29 20:14] LABS: Clarity Clear (Clear)
[2021-05-29 20:26] LABS: Bacteria/HPF None Seen HPF (None Seen); RBC/HPF 0-3 HPF (0-3); Squamous Epithelial None Seen HPF (0-3); WBC/HPF 0-3 HPF (0-3)
[2021-05-29] MEDS ORDERED: Vancomycin 1 GM/200 ML BAG ONE (20:46)
[2021-05-29] MEDS ORDERED: Acetaminophen 325 MG TAB PO PRN (21:14)
[2021-05-29 21:49] LABS: Troponin I 0.078 ng/mL (< 0.028)
[2021-05-29 22:30] LABS: Lactic Acid 3.4 mmol/L (0.5-2.2)
[2021-05-29 22:57] VITALS: BMI 27.8
[2021-05-30] MEDS: traMADol HCl 50 MG TAB PO PRN ×2 (02:20→15:25)
[2021-05-30 04:19] LABS: ALT (SGPT) 16 U/L (8-55); AST (SGOT) 36 U/L (5-34); Albumin 2.8 g/dL (3.4-4.8); Alkaline Phosphatase 240 U/L (40-110); Bilirubin, Direct 2.2 mg/dL (0.1-0.3); Bilirubin, Total 3.4 mg/dL (0.2-1.2); Protein, Total 6.4 g/dL (5.8-8.1)
[2021-05-30 04:20] LABS: Anion Gap 20 mmol/L (10-20); BUN (Urea Nitrogen) 41 mg/dL (8.4-25.7); Calc. Creatinine Clearance 39 mL/min (70-130); Calcium 8.6 mg/dL (7.8-10.44); Carbon Dioxide 23 mmol/L (23-31); Chloride 91 mmol/L (98-107); Glucose 134 mg/dL (83-110); Magnesium 2.2 mg/dL (1.6-2.6); Potassium 4.4 mmol/L (3.5-5.1); Sodium 130 mmol/L (136-145)
[2021-05-30 04:21] LABS: Troponin I 0.108 ng/mL (< 0.028)
[2021-05-30] MEDS: Ondansetron PF 4 MG/2 ML Vial IVP PRN ×2 (04:28→08:56)
[2021-05-30 04:50] LABS: Band 14 % (5-11); Hemoglobin 16.5 g/dL (14.0-18.0); Howell Jolly Bodies SLIGHT = 1-2 cells (100X) (None Seen); Lymphocytes 1 % (21-51); MDiff Complete? YES; Mean Corpuscular HGB CONC 32.6 g/dL (32.0-36.0); Mean Corpuscular Hemoglobin 31.1 pg (27.0-31.0); Mean Corpuscular Volume 95.3 fL (78.0-98.0); Mean Platelet Volume 11.2 fL (7.4-10.4); Monocytes 2 % (0-10); Neutrophil 83 % (42-75); Platelet Count 131 thou/uL (130-400); RBC Distribution Width 18.8 % (11.5-14.5); Red Blood Cell (RBC) Count 5.29 mill/uL (4.70-6.10); Target Cells MODERATE= 6-15 cells (100X) (0-1/hpf)
[2021-05-30] MEDS: Aspirin 81 mg Enteric Coated Tablet PO SCH (07:39)
[2021-05-30] MEDS: Apixaban 2.5 MG TAB PO SCH ×2 (07:39→21:15)
[2021-05-30] MEDS ORDERED: Ondansetron ODT 4 MG TAB PO SCH (11:15)
[2021-05-30] MEDS ORDERED: Temazepam 15 MG CAP PO PRN (11:37)
[2021-05-30] MEDS: Furosemide 40 MG TAB PO SCH (12:17)
[2021-05-30] MEDS: Ondansetron ODT 4 MG TAB PO PRN (18:09)
[2021-05-30] MEDS: CEFEPIME HCL IN DEXTROSE 5 % 1 GM in Premix Bag 1 BAG IVPB SCH (20:58)
[2021-05-30] MEDS ORDERED: Aspirin Chewable 81 MG TAB PO SCH (21:00)
[2021-05-30] MEDS: Atorvastatin Calcium 10 MG TAB PO SCH (21:16)
[2021-05-30] MEDS: Vancomycin 1 GM in Premix Bag 1 BAG IVPB SCH (21:56)
[2021-05-31] MEDS: Ondansetron ODT 4 MG TAB PO PRN (00:51)
[2021-05-31 04:58] LABS: ALT (SGPT) 17 U/L (8-55); AST (SGOT) 35 U/L (5-34); Albumin 2.8 g/dL (3.4-4.8); Alkaline Phosphatase 202 U/L (40-110); Anion Gap 17 mmol/L (10-20); BUN (Urea Nitrogen) 41 mg/dL (8.4-25.7); Bilirubin, Total 2.1 mg/dL (0.2-1.2); Calc. Creatinine Clearance 40 mL/min (70-130); Calcium 8.6 mg/dL (7.8-10.44); Carbon Dioxide 27 mmol/L (23-31); Chloride 90 mmol/L (98-107); Globulin 3.3 g/dL (2.4-3.5); Glucose 150 mg/dL (83-110); Potassium 3.8 mmol/L (3.5-5.1); Protein, Total 6.1 g/dL (5.8-8.1); Sodium 130 mmol/L (136-145)
[2021-05-31 05:01] LABS: #Lymphocytes 0.6 thou/uL (1.20-3.40); #Monocytes 1.3 thou/uL (0.11-0.59); %Basophils 0.2 % (0.0-1.0); %Eosinophils 0.1 % (0.0-10.0); %Lymphocytes 7.2 % (21.0-51.0); %Monocytes 14.2 % (0.0-10.0); %Neutrophils 78.3 % (42.0-75.0); Hemoglobin 15.2 g/dL (14.0-18.0); Mean Corpuscular HGB CONC 31.5 g/dL (32.0-36.0); Mean Corpuscular Hemoglobin 30.2 pg (27.0-31.0); Mean Corpuscular Volume 95.7 fL (78.0-98.0); Mean Platelet Volume 10.7 fL (7.4-10.4); Platelet Count 142 thou/uL (130-400); RBC Distribution Width 18.8 % (11.5-14.5); Red Blood Cell (RBC) Count 5.03 mill/uL (4.70-6.10); White Blood Cell (WBC) Count 8.9 thou/uL (4.8-10.8)
[2021-05-31] MEDS: Furosemide 40 MG TAB PO SCH ×2 (06:33→15:19)
[2021-05-31] MEDS ORDERED: Sodium Chloride 0.9% (PF) 10 ML VIAL FS PRN (07:30)
[2021-05-31] MEDS: Apixaban 2.5 MG TAB PO SCH ×2 (09:50→21:13)
[2021-05-31] MEDS: Aspirin 81 mg Enteric Coated Tablet PO SCH (09:50)
[2021-05-31] MEDS: Pantoprazole 40 MG VIAL IVP SCH (09:51)
[2021-05-31] MEDS: Colchicine 0.6 MG TAB PO SCH (09:51)
[2021-05-31 20:37] LABS: Vancomycin, Trough 14.7 ug/mL
[2021-05-31] MEDS: CEFEPIME HCL IN DEXTROSE 5 % 1 GM in Premix Bag 1 BAG IVPB SCH (21:00)
[2021-05-31] MEDS: Atorvastatin Calcium 10 MG TAB PO SCH (21:13)
[2021-05-31] MEDS: Vancomycin 1 GM in Premix Bag 1 BAG IVPB SCH (21:51)
[2021-06-01] MEDS: Ondansetron ODT 4 MG TAB PO PRN ×3 (04:32→20:38)
[2021-06-01 04:54] LABS: Anion Gap 19 mmol/L (10-20); BUN (Urea Nitrogen) 43 mg/dL (8.4-25.7); Calc. Creatinine Clearance 43 mL/min (70-130); Calcium 8.9 mg/dL (7.8-10.44); Carbon Dioxide 28 mmol/L (23-31); Chloride 87 mmol/L (98-107); Glucose 130 mg/dL (83-110); Potassium 3.5 mmol/L (3.5-5.1); Sodium 130 mmol/L (136-145)
[2021-06-01 05:21] LABS: Band 11 % (5-11); Hemoglobin 15.9 g/dL (14.0-18.0); Lymphocytes 11 % (21-51); MDiff Complete? YES; Mean Corpuscular HGB CONC 30.2 g/dL (32.0-36.0); Mean Corpuscular Hemoglobin 29.1 pg (27.0-31.0); Mean Corpuscular Volume 96.5 fL (78.0-98.0); Mean Platelet Volume 10.8 fL (7.4-10.4); Monocytes 15 % (0-10); Neutrophil 63 % (42-75); Nucleated RBC 1 % (0); Platelet Count 135 thou/uL (130-400); Red Blood Cell (RBC) Count 5.48 mill/uL (4.70-6.10); Target Cells MODERATE= 6-15 cells (100X) (0-1/hpf); White Blood Cell (WBC) Count 9.7 thou/uL (4.8-10.8)
[2021-06-01] MEDS: Furosemide 40 MG TAB PO SCH ×2 (06:41→15:26)
[2021-06-01] MEDS ORDERED: Potassium Chloride 20 MEQ TAB PO SCH (08:30)
[2021-06-01] MEDS: Colchicine 0.6 MG TAB PO SCH (08:58)
[2021-06-01] MEDS: Apixaban 2.5 MG TAB PO SCH ×2 (08:58→20:38)
[2021-06-01] MEDS: Aspirin 81 mg Enteric Coated Tablet PO SCH (08:58)
[2021-06-01] MEDS: Pantoprazole 40 MG VIAL IVP SCH (09:00)
[2021-06-01] MEDS ORDERED: Digoxin 0.125 MG TAB PO SCH (09:00)
[2021-06-01] MEDS: Atorvastatin Calcium 10 MG TAB PO SCH (20:38)
[2021-06-01] MEDS: CEFEPIME HCL IN DEXTROSE 5 % 1 GM in Premix Bag 1 BAG IVPB SCH (20:38)
[2021-06-01] MEDS: Vancomycin 1 GM in Premix Bag 1 BAG IVPB SCH (20:39)
[2021-06-01] MEDS ORDERED: Temazepam 15 MG CAP PO SCH (21:00)
[2021-06-02] MEDS ORDERED: Promethazine HCl 25 MG in Sodium Chloride 0.9% 50 ML IVPB PRN (01:04)
[2021-06-02] MEDS: Ondansetron ODT 4 MG TAB PO PRN (01:18)
[2021-06-02] MEDS: traMADol HCl 50 MG TAB PO PRN (05:41)
[2021-06-02] MEDS: Furosemide 40 MG TAB PO SCH ×2 (05:42→13:13)
[2021-06-02] MEDS: Colchicine 0.6 MG TAB PO SCH (08:04)
[2021-06-02] MEDS: Aspirin 81 mg Enteric Coated Tablet PO SCH (08:04)
[2021-06-02] MEDS: Apixaban 2.5 MG TAB PO SCH (08:04)
[2021-06-02] MEDS: Pantoprazole 40 MG VIAL IVP SCH (08:05)
[2021-06-02 11:49] VITALS: BP 122/75; TEMP 98
[2021-06-02] MEDS ORDERED: traMADol HCl 50 MG TAB PO SCH (13:30)
== END 2021-06-02 14:38 | disposition home health service (06) | DRG 871 ==
LOC: ERS 17:46 → IMCU/EMU 19:52 → 2NO 05-30 14:51
PROVIDERS: ADMIT Internal Medicine; ATTEND Family Medicine
PROC: 5A09357 Assistance with Respiratory Ventilation, Less than 24 Consecutive Hours, Continuous Positive Airway Pressure (ICD-10-PCS; principal; 2021-05-29)
DX: A41.9 Sepsis, unspecified organism (principal); J96.21 Acute and chronic respiratory failure with hypoxia; I50.42 Chronic combined systolic (congestive) and diastolic (congestive) heart failure; N17.9 Acute kidney failure, unspecified; J44.1 Chronic obstructive pulmonary disease with (acute) exacerbation; I48.21 Permanent atrial fibrillation; E87.2 Acidosis; E87.1 Hypo-osmolality and hyponatremia; N18.30 Chronic kidney disease, stage 3 unspecified; I25.10 Atherosclerotic heart disease of native coronary artery without angina pectoris; I25.5 Ischemic cardiomyopathy; E78.5 Hyperlipidemia, unspecified; D69.6 Thrombocytopenia, unspecified; Z96.653 Presence of artificial knee joint, bilateral; K21.9 Gastro-esophageal reflux disease without esophagitis; Z91.041 Radiographic dye allergy status; Z91.011 Allergy to milk products; Z88.8 Allergy status to other drugs, medicaments and biological substances; Z79.01 Long term (current) use of anticoagulants; Z79.899 Other long term (current) drug therapy; Z98.1 Arthrodesis status; Z95.810 Presence of automatic (implantable) cardiac defibrillator; Z79.82 Long term (current) use of aspirin; Z79.51 Long term (current) use of inhaled steroids; Z90.49 Acquired absence of other specified parts of digestive tract; Z99.2 Dependence on renal dialysis; Z85.53 Personal history of malignant neoplasm of renal pelvis
CPT/HCPCS: 36415; 71045; 80048; 80053; 80076; 80202; 81003; 82550; 82553; 83605; 83690; 83735; 83880; 84484; 85025; 86140; 87040; 93005; 94640; 94660; 96365; 96367; 96375; C9113; J0692; J1160; J1956; J2405; J2550; J3370; J3475; J7620; Q0162